=== PATIENT | female | born 1940 | race Caucasian/White ===

== ENCOUNTER 2018-12-29 08:04 | Inpatient (IN) | payer MEDICARE, MEDICAID ==
[2018-12-29] MEDS ORDERED: IPRATROPIUM/ALBUTEROL 0.5-2.5 MG/3 ML AMPUL NEB ONE (08:16)
--- NOTE | 2018-12-29 08:18 | ER Document Report ---
ED Respiratory Problem - General Chief Complaint: Respiratory Distress Stated Complaint: RESPIRATORY DISTRESS Time Seen by Provider: 12/29/18 08:09 Mode of Arrival: Medic Information source: Patient, Emergency Med Personnel Notes: Patient is a 78-year-old female who presents the emergency department via EMS. Family called EMS for respiratory distress. Family reported to EMS that patient has had a productive cough for the last 2-3 days, they state this is worse while she is lying down. Upon EMS arrival they found to be patient lying down with a O2 sat of 89%. EMS reports that her O2 saturations came up to 95% once they sat her up. Patient does have a history of dementia, COPD, hypertension, diabetes mellitus and A. fib. Patient has not been to this facility before so all of her medication information is not available. Unsure of patient has been having fevers although she reports chills. There is a strong smell of urine in the room. - Related Data Allergies/Adverse Reactions: No Known Allergies Allergy (Verified 12/29/18 08:42) Past Medical History - General Information source: Relative, Emergency Med Personnel - Social History Smoking Status: Current Some Day Smoker Frequency of alcohol use: None Drug Abuse: None Family History: Reviewed & Not Pertinent - Past Medical History Cardiac Medical History: Reports: Hx Hypertension Pulmonary Medical History: Reports: Hx COPD Endocrine Medical History: Reports: Hx Diabetes Mellitus Type 2 - NIDDM GI Medical History: Reports: Hx Crohn's Disease Review of Systems - Review of Systems Constitutional: denies: Chills, Fever EENT: denies: Nose congestion, Sinus discharge Cardiovascular: denies: Chest pain Respiratory: Cough, Short of breath, Sputum, Wheezing Gastrointestinal: denies: Abdominal pain, Diarrhea, Nausea, Vomiting Genitourinary: Other - Foul-smelling urine Female Genitourinary: No symptoms reported Musculoskeletal: No symptoms reported Skin: No symptoms reported Physical Exam - Vital signs Vitals: Temp Pulse Resp BP Pulse Ox 98.0 F 132 H 19 112/51 L 93 12/29/18 08:10 12/29/18 08:10 12/29/18 08:10 12/29/18 08:10 12/29/18 08:10 - Notes Notes: GENERAL: Alert, pleasantly confused, interacts well. No distress. HEAD: Normocephalic, atraumatic. EYES: Pupils equal, round, and reactive to light. Extraocular movements intact. ENT: Oral mucosa moist, tongue midline. Oropharynx unremarkable, uvula normal, airway patent. Septum unremarkable, TMs normal, ear canals are normal. NECK: Trachea midline. No lymphadenopathy. LUNGS: Mild expiratory wheezes, no rales, or rhonchi. No respiratory distress. Congested cough. HEART: Regular rate and rhythm. No murmur. Normal distal pulses and cap refill. ABDOMEN: Soft, non-tender. Non-distended. Bowel sounds present in all 4 quadrants. GENITOURINARY: Normal external genital exam, normal groin exam. EXTREMITIES: Moves all 4 extremities spontaneously. Mild edema noted to left lower extremity. No cyanosis. BACK: No cervical, thoracic, lumbar midline tenderness. No signs of trauma. NEUROLOGICAL: Alert, interactive. SKIN: Warm, dry, normal turgor. No rashes or lesions noted. Course - Re-evaluation Re-evalutation: On initial examination patient awake, alert with mild expiratory wheezes noted, DuoNeb and Solu-Medrol ordered. Patient is tachycardic, heart rate in the 130s on arrival, A. fib noted on the personnel monitor. EKG was obtained, rate 147, normal axis, ST depressions in multiple leads, no EKG on record for comparison. Patient is normotensive and afebrile. Patient's initial O2 sats are 88%, she does have a history of COPD. Patient denies any specific symptoms however she does have dementia. Dr. Denise made aware of patient status and he did come to the bedside to personally evaluate the patient. Chest x-ray is consistent with COPD exacerbation, no evidence of infiltrates or pneumothorax. CBC with leukocytosis of 22.9, otherwise unremarkable. Electrolytes are unremarkable, lactic acid 1.8, troponin negative. Influenza is negative. Urinalysis shows large leukocyte esterase, 2+ bacteria and WBC clumps. Patient currently receiving IV fluids, was given Rocephin IV, azithromycin IV. Cardizem bolus of 7 mg was ordered and drip was initiated. Patient continues to be normotensive and without hypoxia. Plan to admit patient for urosepsis, COPD exacerbation and uncontrolled atrial fibrillation. Family members are at bedside, updated on patient's status and plan of care, they are all in agreement. Called and spoke with hospitalist, JENNY Ramey who agrees to accept the patient for admission on to the [facility] floor. - Vital Signs Vital signs: Temp Pulse Resp BP Pulse Ox 98.0 F 132 H 19 112/51 L 92 12/29/18 08:10 12/29/18 08:10 12/29/18 08:10 12/29/18 08:10 12/29/18 08:16 - Laboratory Result Diagrams: 12/29/18 08:33 12/29/18 08:33 Laboratory results interpreted by me: 12/29/18 12/29/18 12/29/18 08:33 08:33 08:33 WBC 22.9 H Hgb 11.7 L RDW 16.7 H Seg Neuts % (Manual) 92 H Band Neutrophils % 2 L Lymphocytes % (Manual) 3 L Monocytes % (Manual) 2 L Abs Neuts (Manual) 21.5 H Chloride 109 H BUN 29 H Est GFR (Non-Af Amer) 57 L Glucose 170 H Calcium 7.9 L AST 11 L Total Protein 5.6 L Albumin 3.2 L Ur Leukocyte Esterase LARGE H Critical Care Note - Critical Care Note Total time excluding time spent on procedures (mins): 30 Comments: Multiple re-evaluations of patient with uncontrolled A. fib and urosepsis. Discharge - Discharge Clinical Impression: Sepsis due to urinary tract infection, COPD exacerbation Atrial fibrillation Qualifiers: Atrial fibrillation type: chronic Qualified Code(s): I48.2 - Chronic atrial fibrillation Condition: Good Disposition: ADMITTED INPATIENT Admitting Provider: Hospitalist Unit Admitted: [facility]
[2018-12-29] MEDS ORDERED: NORMAL SALINE 1000 ML 250 ML IV ONE (08:29)
[2018-12-29] MEDS ORDERED: METHYLPREDNISOLONE INJ 125 MG/2 ML SDV IV ONE (08:33)
[2018-12-29] MEDS ORDERED: CEFTRIAXONE 1 GM/D5W RTU 1 GM/50 ML RTUPB IV ONE (08:35)
[2018-12-29] MEDS ORDERED: AZITHROMYCIN INJ 500 MG VIAL IV ONE (08:35)
[2018-12-29] MEDS ORDERED: NORMAL SALINE 1000 ML 1,000 ML IV ONE (09:08)
[2018-12-29 09:14] LABS: APPEARANCE,URINE CLOUDY; BILIRUBIN,URINE NEGATIVE (NEGATIVE); COLOR,URINE YELLOW; GLUCOSE, URINE NEGATIVE (NEGATIVE); KETONES,URINE NEGATIVE (NEGATIVE); LEUKOCYTE ESTERASE,URINE LARGE (NEGATIVE); NITRITE,URINE NEGATIVE (NEGATIVE); PROTEIN,URINE NEGATIVE (NEGATIVE); URINE SPECIFIC GRAVITY 1.016; UROBILINOGEN,URINE NEGATIVE mg/dL (<2.0)
[2018-12-29 09:15] LABS: HEMATOCRIT 36.1 % (36.0-47.0); HEMOGLOBIN 11.7 g/dL (12.0-15.5); MEAN CORPUSCULAR HEMOGLOBIN 30.3 pg (27.0-33.4); MEAN CORPUSCULAR HGB CONC 32.3 g/dL (32.0-36.0); MEAN CORPUSCULAR VOLUME 94 fl (80-97); PLATELET COUNT 358 10^3/uL (150-450); RED BLOOD COUNT 3.84 10^6/uL (3.72-5.28); RED CELL DISTRIBUTION WIDTH 16.7 % (11.5-14.0); WHITE BLOOD COUNT 22.9 10^3/uL (4.0-10.5)
[2018-12-29 09:19] LABS: ALANINE AMINOTRANSFERASE 12 U/L (9-52); ALBUMIN 3.2 g/dL (3.5-5.0); ALKALINE PHOSPHATASE 55 U/L (38-126); ANION GAP 9 (5-19); ASPARTATE AMINO TRANSFERASE 11 U/L (14-36); BILIRUBIN,DIRECT 0.4 mg/dL (0.0-0.4); BILIRUBIN,TOTAL 0.7 mg/dL (0.2-1.3); BLOOD UREA NITROGEN 29 mg/dL (7-20); CALCIUM 7.9 mg/dL (8.4-10.2); CARBON DIOXIDE 22 mmol/L (22-30); CHLORIDE 109 mmol/L (98-107); GLUCOSE 170 mg/dL (75-110); POTASSIUM 4.5 mmol/L (3.6-5.0); SODIUM 139.9 mmol/L (137-145); TOTAL PROTEIN 5.6 g/dL (6.3-8.2)
--- NOTE | 2018-12-29 09:26 | RADIOLOGY REPORT (SQ) ---
EXAM DESCRIPTION: CHEST SINGLE VIEW COMPLETED DATE/TIME: 12/29/2018 9:07 am REASON FOR STUDY: shortness of breath COMPARISON: None. NUMBER OF VIEWS: One view. TECHNIQUE: Single frontal radiographic view of the chest acquired. LIMITATIONS: None. FINDINGS: LUNGS AND PLEURA: No opacities, masses or pneumothorax. No pleural effusion. Attenuated bl ood vessels and flattened deejay-diaphragms. MEDIASTINUM AND HILAR STRUCTURES: No masses. Contour normal. HEART AND VASCULAR STRUCTURES: Heart normal in size. Normal vasculature. BONES: No acute findings. HARDWARE: None in the chest. OTHER: No other significant finding. IMPRESSION: COPD. NO ACUTE RADIOGRAPHIC FINDING IN THE CHEST. TECHNICAL DOCUMENTATION: JOB ID: [id number] [employer] [place]- All Rights Reserved Reading location - IP/workstation name: [email or web address]
[2018-12-29 09:32] LABS: A TYPE INFLUENZA AG NEGATIVE (NEGATIVE); B INFLUENZA AG NEGATIVE (NEGATIVE)
[2018-12-29] MEDS ORDERED: DILTIAZEM HCL INJ 25 MG/5 ML VIAL IV ONE (09:41)
[2018-12-29] MEDS: DILTIAZEM HCL/D5W 125 MG/125 ML RTUINJ IV PRN ×2 (10:04→22:40)
[2018-12-29 10:05] LABS: ABSOLUTE LYMPHOCYTES# (MANUAL) 0.7 10^3/uL (0.5-4.7); ABSOLUTE MONOCYTES # (MANUAL) 0.5 10^3/uL (0.1-1.4); ABSOLUTE NEUTROPHILS# (MANUAL) 21.5 10^3/uL (1.7-8.2); ANISOCYTOSIS 1+; BAND NEUTROPHILS % (MANUAL) 2 % (3-5); BASOPHILS % (MANUAL) 0 % (0-2); BURR CELLS SLIGHT; EOSINOPHILS % (MANUAL) 1 % (0-6); LYMPHOCYTES % (MANUAL) 3 % (13-45); MONOCYTES % (MANUAL) 2 % (3-13); OVALOCYTES 1+; PLATELET COMMENT ADEQUATE; POIKILOCYTOSIS 1+; SEGMENTED NEUTROPHILS % (MAN) 92 % (42-78); TOTAL CELLS COUNTED 100
[2018-12-29] MEDS ORDERED: ACETAMINOPHEN 325 MG TABLET PO PRN (11:10)
[2018-12-29] MEDS ORDERED: DEXTROSE 40% GEL 15 GM TUBE PO PRN ×2 (11:19)
[2018-12-29] MEDS ORDERED: DEXTROSE 50%-WATER 25 GM/50 ML DISP.SYRIN IV PRN ×2 (11:19)
[2018-12-29] MEDS ORDERED: GLUCAGON,HUMAN RECOMB 1 MG INJ IM PRN (11:19)
[2018-12-29 11:39] LABS: INTERNATIONAL RATION (INR) 0.91; PROTHROMBIN TIME 12.7 SEC (11.4-15.4)
[2018-12-29 11:40] LABS: PARTIAL THROMBOPLASTIN TIME 25.3 SEC (23.5-35.8)
[2018-12-29] MEDS: INSULIN LISPRO 100 UNIT/ML 3 ML VIAL SUBCUT SCH ×3 (12:00→21:54)
--- NOTE | 2018-12-29 12:16 | RADIOLOGY REPORT (SQ) ---
EXAM DESCRIPTION: CT CHEST WITHOUT COMPLETED DATE/TIME: 12/29/2018 12:00 pm REASON FOR STUDY: suspect aspiration- cough COMPARISON: None. TECHNIQUE: CT scan performed of the chest without intravenous contrast. Images reviewed with lung, soft tissue and bone windows. Reconstructed coronal and sagittal MPR images reviewed. All images st ored on PACS. All CT scanners at this facility use dose modulation, iterative reconstruction, and/or weight based d osing when appropriate to reduce radiation dose to as low as reasonably achievable (ALARA). [facility]: Dose Right [facility]: CareDose [facility]: Dose Right [facility]: Teradose 4D [facility]: [place] RADIATION DOSE: CT Rad equipment meets quality standard of care and radiation dose reduction techniq ues were employed. CTDIvol: 11.9 mGy. DLP: 515 mGy-cm. mGy. LIMITATIONS: No technical limitations. FINDINGS: LUNGS AND PLEURA: Mild centrilobular emphysema. 8-10 scattered pulmonary nodules, the lar gest left lower lobe 1.7 cm abutting the posterior heart border. Bandlike density along the left denae or fissure most likely due to atelectasis or scarring. No effusions. HILAR AND MEDIASTINAL STRUCTURES: 1 cm pretracheal node. No bulky adenopathy. HEART AND VASCULAR STRUCTURES: No aneurysm. No pericardial effusion. UPPER ABDOMEN: 3 cm left adrenal measuring -3 HU, most likely benign adenoma. Thickening of the righ t adrenal. Cholelithiasis. Old granulomatous disease liver and spleen. Limited exam. THYROID AND OTHER SOFT TISSUES: No masses. No adenopathy. BONES: Nothing acute. HARDWARE: None in the chest. OTHER: No other significant findings. IMPRESSION: 1. Pulmonary nodules suspicious for malignancy. Consider follow-up PET-CT. 2. COPD. No infiltrate. TECHNICAL DOCUMENTATION: JOB ID: [id number] Quality ID # [id number]: Final reports with documentation of one or more dose reduction techniques (e.g., Au tomated exposure control, adjustment of the mA and/or kV according to patient size, use of iterative reconstruction technique) 2010 [employer]- All Rights Reserved Reading location - IP/workstation name: [email or web address]
[2018-12-29] MEDS: IPRATROPIUM/ALBUTEROL 0.5-2.5 MG/3 ML AMPUL NEB SCH ×2 (13:19→21:43)
--- NOTE | 2018-12-29 16:55 | PDOC H&P ---
History of Present Illness Admission Date/PCP: 12/29/18 10:10 The patient is establishing care with ARA GARCIA MD but does not have her first appointment until this coming Friday. Patient complains of: Shortness of breath and altered mental status. History of Present Illness: The patient is a 78-year-old female who presented to the emergency room via EMS. The family called EMS because the patient had developed respiratory distress at home. When EMS arrived they found the patient to be acutely dyspneic with an O2 sat saturation of 89%. She responded quite quickly her oxygen saturations recuperated when she was set up. Her past medical histo ry significant for dementia, COPD, hypertension, diabetes mellitus and atrial fibrillation. The patiently recently moved to this area from [place]. Her daughters report a history of Crohn's disease. Apparently her GI doctor in [place] was wanting to perform frequent colonoscopies and refused to see her when she would not comply. She has been off treatment for her Crohn's disease for over a year. She has developed diarrhea and has had several loose stools already today. Family reports that she has been more confused for the past several days. She has been weaker with difficulty ambulating. In the emergency room it was reported that she had atrial fibrillation with rapid ventricular response with rates in the 110s-120s. She was found to have evidence of a urinary tract infection. Her white blood cell count was elevated at 22.9. Kidney function and liver function was normal. Past Medical History Cardiac Medical History: Reports: Atrial Fibrillation, Hypertension Pulmonary Medical History: Reports: Chronic Obstructive Pulmonary Disease (COPD) EENT Medical History: Reports: None Neurological Medical History: Reports: None Endocrine Medical History: Reports: Diabetes Mellitus Type 2 - NIDDM Renal/ Medical History: Reports: None Malignancy Medical History: Reports: None GI Medical History: Reports: Crohn's Disease Musculoskeltal Medical History: Reports: None Skin Medical History: Reports: None Psychiatric Medical History: Reports: Depression Traumatic Medical History: Reports: None Hematology: Reports: None Infectious Medical History: Reports: None Past Surgical History Past Surgical History: Reports: Orthopedic Surgery Social History Information Source: Relative Lives with: Family Smoking Status: Current Some Day Smoker Frequency of Alcohol Use: None Drugs: None - Advance Directive Resuscitation Status: Full Code Family History Family History: Reviewed & Not Pertinent Parental Family History Reviewed: Yes Children Family History Reviewed: Yes Sibling(s) Family History Reviewed.: Yes Medication/Allergy Home Medications: Albuterol Sulfate [Ventolin 0.083% Neb 2.5 mg/3 ml Ampul] 1 vial NEB RTQIDP PRN 12/29/18 Chlorthalidone [Hygroton 25 mg Tablet] 25 mg PO DAILY 12/29/18 Diltiazem HCl [Dilt-Xr] 120 mg PO DAILY 12/29/18 Glimepiride [Amaryl] 2 mg PO DAILY 12/29/18 Glucosam/Chond/Hyalu/Cf Borate [Move Free Joint Health Tablet] 2 each PO QHS 12/29/18 Ipratropium/Albuterol Sulfate [Duoneb 3 ml Ampul] 3 ml NEB RTQIDP PRN 12/29/18 Lisinopril [Prinivil 40 mg Tablet] 40 mg PO DAILY 12/29/18 Metformin HCl [Glucophage 500 mg Tablet] 1,000 mg PO DAILY 12/29/18 Metformin HCl [Glucophage 500 mg Tablet] 500 mg PO QHS 12/29/18 Naproxen Sodium [Aleve] 440 mg PO DAILY 12/29/18 Naproxen Sodium [Aleve] 660 mg PO QHS 12/29/18 Thyroid,Pork [Nature-Throid] 16.25 mg PO DAILY 12/29/18 Tizanidine HCl [Zanaflex 4 Mg Tablet] 4 mg PO Q12 12/29/18 Allergies/Adverse Reactions: No Known Allergies Allergy (Verified 12/29/18 08:42) Review of Systems Constitutional: PRESENT: anorexia, weakness Eyes: ABSENT: visual disturbances Ears: ABSENT: hearing changes Cardiovascular: ABSENT: chest pain, dyspnea on exertion, edema, orthropnea, palpitations Respiratory: PRESENT: cough, dyspnea Gastrointestinal: PRESENT: diarrhea. ABSENT: abdominal pain, constipation, hematemesis, hematochezia, nausea, vomiting Genitourinary: ABSENT: dysuria, hematuria Musculoskeletal: ABSENT: joint swelling Integumentary: ABSENT: rash, wounds Neurological: ABSENT: abnormal gait, abnormal speech, confusion, dizziness, focal weakness, syncope Psychiatric: ABSENT: anxiety, depression, homidical ideation, suicidal ideation Endocrine: ABSENT: cold intolerance, heat intolerance, polydipsia, polyuria Hematologic/Lymphatic: ABSENT: easy bleeding, easy bruising Physical Exam Vital Signs: Temp Pulse Resp BP Pulse Ox 98.0 F 104 H 21 H 137/82 H 98 12/29/18 08:10 12/29/18 13:19 12/29/18 15:00 12/29/18 14:31 12/29/18 15:00 Intake & Output 12/28/18 12/29/18 12/30/18 06:59 06:59 06:59 Intake Total 1050 Balance 1050 Weight 62.9 kg General appearance: PRESENT: other - This is a 78-year-old female. She is quite confused. She is awake alert and oriented x1 Head exam: PRESENT: atraumatic, normocephalic Eye exam: PRESENT: conjunctiva pink, EOMI, PERRLA. ABSENT: scleral icterus Mouth exam: PRESENT: moist, tongue midline Neck exam: ABSENT: carotid bruit, JVD, lymphadenopathy, thyromegaly Respiratory exam: PRESENT: rhonchi - Coarse rhonchi noted throughout all lung vang, other Cardiovascular exam: PRESENT: RRR, tachycardia. ABSENT: diastolic murmur, rubs, systolic murmur Pulses: PRESENT: normal dorsalis pedis pul Vascular exam: PRESENT: normal capillary refill GI/Abdominal exam: PRESENT: normal bowel sounds, soft. ABSENT: distended, guarding, mass, organolmegaly, rebound, tenderness Rectal exam: PRESENT: deferred Extremities exam: PRESENT: full ROM. ABSENT: calf tenderness, clubbing, pedal edema Neurological exam: PRESENT: alert, awake, oriented to person, oriented to place, oriented to time, oriented to situation, CN II-XII grossly intact. ABSENT: motor sensory deficit Psychiatric exam: PRESENT: appropriate affect, normal mood. ABSENT: homicidal ideation, suicidal ideation Skin exam: PRESENT: dry, intact, warm. ABSENT: cyanosis, rash Results Laboratory Results: 12/29/18 08:33 12/29/18 08:33 12/29/18 12/29/18 12/29/18 08:33 08:33 08:33 WBC 22.9 H RBC 3.84 Hgb 11.7 L Hct 36.1 MCV 94 MCH 30.3 MCHC 32.3 RDW 16.7 H Plt Count 358 Seg Neutrophils % Not Reportable Lymphocytes % Not Reportable Monocytes % Not Reportable Eosinophils % Not Reportable Basophils % Not Reportable Absolute Neutrophils Not Reportable Absolute Lymphocytes Not Reportable Absolute Monocytes Not Reportable Absolute Eosinophils Not Reportable Absolute Basophils Not Reportable Sodium 139.9 Potassium 4.5 Chloride 109 H Carbon Dioxide 22 Anion Gap 9 BUN 29 H Creatinine 0.94 Est GFR ( Amer) > 60 Est GFR (Non-Af Amer) 57 L Glucose 170 H Lactic Acid Calcium 7.9 L Total Bilirubin 0.7 AST 11 L ALT 12 Alkaline Phosphatase 55 Total Protein 5.6 L Albumin 3.2 L Urine Color YELLOW Urine Appearance CLOUDY Urine pH 5.0 Ur Specific Admire 1.016 Urine Protein NEGATIVE Urine Glucose (UA) NEGATIVE Urine Ketones NEGATIVE Urine Blood NEGATIVE Urine Nitrite NEGATIVE Ur Leukocyte Esterase LARGE H Urine WBC (Auto) 45 Urine RBC (Auto) 1 12/29/18 09:16 WBC RBC Hgb Hct MCV MCH MCHC RDW Plt Count Seg Neutrophils % Lymphocytes % Monocytes % Eosinophils % Basophils % Absolute Neutrophils Absolute Lymphocytes Absolute Monocytes Absolute Eosinophils Absolute Basophils Sodium Potassium Chloride Carbon Dioxide Anion Gap BUN Creatinine Est GFR ( Amer) Est GFR (Non-Af Amer) Glucose Lactic Acid 1.8 Calcium Total Bilirubin AST ALT Alkaline Phosphatase Total Protein Albumin Urine Color Urine Appearance Urine pH Ur Specific Admire Urine Protein Urine Glucose (UA) Urine Ketones Urine Blood Urine Nitrite Ur Leukocyte Esterase Urine WBC (Auto) Urine RBC (Auto) 12/29/18 08:33 Troponin I < 0.012 Impressions: Chest CT 12/29/18 00:00 IMPRESSION: 1. Pulmonary nodules suspicious for malignancy. Consider follow-up PET-CT. 2. COPD. No infiltrate. Chest X-Ray 12/29/18 08:17 IMPRESSION: COPD. NO ACUTE RADIOGRAPHIC FINDING IN THE CHEST. Assessment & Plan - Diagnosis (1) Acute respiratory failure Is this a current diagnosis for this admission?: Yes Plan: The patient was acutely dyspneic with low oxygen saturations when EMS arrived. She is improved somewhat but still is quite short of breath with cough and bronchospasm. Continue oxygen support as needed. Continue aggressive breathing treatments and therapy as outlined below first. Her respiratory failure is due to a COPD exacerbation (2) Acute encephalopathy Is this a current diagnosis for this admission?: Yes Plan: Secondary to urinary tract infection and simply aggravated by hypoxia at the time of admission. She still is acutely encephalopathic and nowhere close to her cognitive baseline per the family. (3) COPD exacerbation Is this a current diagnosis for this admission?: Yes Plan: Continue IV Solu-Medrol and aggressive breathing treatments. No evidence of pneumonia on CT imaging. (4) Urinary tract infection Is this a current diagnosis for this admission?: Yes Plan: Urine culture and blood cultures are pending. Continue IV Rocephin. This is the first full day of treatment. (5) Pulmonary nodules Is this a current diagnosis for this admission?: Yes Plan: She had a CT scan of the chest and was found to have multiple pulmonary nodules worrisome for underlying malignancy. I am going to consult pulmonology for further evaluation. Of note the family has not been notified of this as I am just finding this out later in the day. (6) Crohns disease Is this a current diagnosis for this admission?: Yes Plan: Her Crohn's disease has been untreated for quite some time. She is having diarrhea and possibly could be having Crohn's flare. She is on IV Solu-Medrol for her respiratory issues which should help that. I will consult Dr. Matias from the GI service for further recommendations. (7) Diabetes mellitus Is this a current diagnosis for this admission?: Yes Plan: Continue home regimen plus sliding scale. We need to watch her blood sugars quite closely as she will be receiving IV steroids. (8) Hypertension Is this a current diagnosis for this admission?: Yes Plan: Continue home regimen (9) Atrial fibrillation Is this a current diagnosis for this admission?: Yes Plan: It was reported earlier that the patient had atrial fibrillation with rapid ventricular response. She was transiently placed on a Cardizem drip. Cardiology was consulted and he does not believe that this is atrial fibrillation at this point. She does have a history of this. We will await further recommendations from cardiology. (10) Sinus tachycardia Is this a current diagnosis for this admission?: Yes Plan: Likely due to underlying infection. (11) Dementia Is this a current diagnosis for this admission?: Yes Plan: This is not been formally introduced but the family reports rather significant memory issues at times. (12) Ambulatory dysfunction Is this a current diagnosis for this admission?: Yes Plan: We will get physical therapy to evaluate the patient. (13) Full code status Is this a current diagnosis for this admission?: Yes - Time Time Spent: 50 to 70 Minutes - Inpatient Certification Medical Necessity: Need For IV Fluids, Need For Continuous Telemetry Monitoring, Need for IV Antibiotics, Other - Is a patient will be fully admitted to the hospital. She has multiple issues to include urinary tract infection, untreated Crohn's disease and atrial fibrillation. She has a COPD exacerbation with new pulmonary nodules noted on CT imaging. She needs pulmonology and cardiology evaluation. Timing of disposition will be determined by her clinical course but I suspect her hospitalization will span greater than 2 midnights.
[2018-12-29] MEDS: METHYLPREDNISOLONE INJ 40 MG/1 ML SDV IV SCH ×2 (17:12→23:12)
--- NOTE | 2018-12-29 17:48 | PDOC CONSULTATION ---
Consultation Consult Date: 12/29/18 Attending physician:: JADON PACHECO Consult reason:: Diarrhea ? due to Crohn's disease History of Present Illness Admission Date/PCP: 12/29/18 10:10 ARA GARCIA MD History of Present Illness: JOSE DANIEL LONG is a 78 year old female I have asked to see this patient by the Hospitalist service was admitted for an episode of respiratory distress has a history of A fib in the past as well on admission was noted to have pulmonary nodules and Pulmonary service has a vague history of Crohn's disease apparently followed out of state and was tod that she needed colonoscopies every 3 months she refused and has not been treated patient is currently receiving steroids for her COPD patient does have other issues going on as well and checking a sed rate or a CRP may not be useful as well will need to have family sign to get records of previous diagnosis and work up if any regarding her Crohn's it is unclear if she has had biological therapy in the past however her K is 4.5 implying her diarrhea may not be severe enough to be causing a hypokalemia patient has slightly elevated BUN that could suggest some degree of dehydration she has other problems that need to be addressed during this hospital stay she may benefit from a CT scan with oral contrast vs a SBFT to see if she has any areas of inflammation in her intestinal tract Past Medical History Cardiac Medical History: Reports: Atrial Fibrillation, Hypertension Pulmonary Medical History: Reports: Chronic Obstructive Pulmonary Disease (COPD) EENT Medical History: Reports: None Neurological Medical History: Reports: None Endocrine Medical History: Reports: Diabetes Mellitus Type 2 - NIDDM Renal/ Medical History: Reports: None Malignancy Medical History: Reports: None GI Medical History: Reports: Crohn's Disease Musculoskeltal Medical History: Reports: None Skin Medical History: Reports: None Psychiatric Medical History: Reports: Depression Traumatic Medical History: Reports: None Hematology: Reports: None Infectious Medical History: Reports: None Past Surgical History Past Surgical History: Reports: Orthopedic Surgery Social History Lives with: Family Smoking Status: Current Some Day Smoker Frequency of Alcohol Use: None Drugs: None - Advance Directive Resuscitation Status: Full Code Family History Family History: Reviewed & Not Pertinent Parental Family History Reviewed: Yes Children Family History Reviewed: Unknown Sibling(s) Family History Reviewed.: Unknown Medication/Allergy Home Medications: Albuterol Sulfate [Ventolin 0.083% Neb 2.5 mg/3 ml Ampul] 1 vial NEB RTQIDP PRN 12/29/18 Chlorthalidone [Hygroton 25 mg Tablet] 25 mg PO DAILY 12/29/18 Diltiazem HCl [Dilt-Xr] 120 mg PO DAILY 12/29/18 Glimepiride [Amaryl] 2 mg PO DAILY 12/29/18 Glucosam/Chond/Hyalu/Cf Borate [Move Free Joint Health Tablet] 2 each PO QHS 12/29/18 Ipratropium/Albuterol Sulfate [Duoneb 3 ml Ampul] 3 ml NEB RTQIDP PRN 12/29/18 Lisinopril [Prinivil 40 mg Tablet] 40 mg PO DAILY 12/29/18 Metformin HCl [Glucophage 500 mg Tablet] 1,000 mg PO DAILY 12/29/18 Metformin HCl [Glucophage 500 mg Tablet] 500 mg PO QHS 12/29/18 Naproxen Sodium [Aleve] 440 mg PO DAILY 12/29/18 Naproxen Sodium [Aleve] 660 mg PO QHS 12/29/18 Thyroid,Pork [Nature-Throid] 16.25 mg PO DAILY 12/29/18 Tizanidine HCl [Zanaflex 4 Mg Tablet] 4 mg PO Q12 12/29/18 Allergies/Adverse Reactions: No Known Allergies Allergy (Verified 12/29/18 08:42) Review of Systems Constitutional: ABSENT: fever(s), headache(s), night sweats Eyes: ABSENT: visual disturbances Ears: ABSENT: hearing changes Nose, Mouth, and Throat: ABSENT: mouth pain Cardiovascular: ABSENT: edema, orthropnea Respiratory: ABSENT: dyspnea, hemoptysis Gastrointestinal: ABSENT: hematemesis, hematochezia, nausea, vomiting Genitourinary: ABSENT: dysuria, hematuria Musculoskeletal: ABSENT: joint swelling Neurological: ABSENT: syncope, tingling, tremor(s), vertigo Endocrine: ABSENT: polydipsia, polyphagia, polyuria Hematologic/Lymphatic: ABSENT: easy bruising Physical Exam Vital Signs: Temp Pulse Resp BP Pulse Ox 98.0 F 104 H 19 133/61 H 100 12/29/18 08:10 12/29/18 13:19 12/29/18 16:31 12/29/18 16:31 12/29/18 16:31 Intake & Output 0212/29/18 12/30/18 06:59 06:59 06:59 Intake Total 1059 Balance 1059 Weight 62.9 kg General appearance: PRESENT: no acute distress Head exam: PRESENT: atraumatic, normocephalic Eye exam: PRESENT: EOMI, PERRLA. ABSENT: nystagmus, periorbital swelling, scleral icterus Mouth exam: PRESENT: moist, neck supple Throat exam: ABSENT: tonsillar exudate, tonsillogmegaly Respiratory exam: PRESENT: symmetrical, tachypnea, wheezes Cardiovascular exam: PRESENT: irregular rhythm GI/Abdominal exam: PRESENT: soft. ABSENT: rebound, rigid, tenderness Extremities exam: ABSENT: joint swelling Neurological exam: PRESENT: oriented to situation, CN II-XII grossly intact Focused psych exam: ABSENT: restlessness Skin exam: PRESENT: normal color. ABSENT: mottled, pallor, urticaria, vesicles Results Laboratory Results: 12/29/18 08:33 12/29/18 08:33 12/29/18 12/29/18 12/29/18 08:33 08:33 08:33 WBC 22.9 H RBC 3.84 Hgb 11.7 L Hct 36.1 MCV 94 MCH 30.3 MCHC 32.3 RDW 16.7 H Plt Count 358 Seg Neutrophils % Not Reportable Lymphocytes % Not Reportable Monocytes % Not Reportable Eosinophils % Not Reportable Basophils % Not Reportable Absolute Neutrophils Not Reportable Absolute Lymphocytes Not Reportable Absolute Monocytes Not Reportable Absolute Eosinophils Not Reportable Absolute Basophils Not Reportable Sodium 139.9 Potassium 4.5 Chloride 109 H Carbon Dioxide 22 Anion Gap 9 BUN 29 H Creatinine 0.94 Est GFR ( Amer) > 60 Est GFR (Non-Af Amer) 57 L Glucose 170 H Lactic Acid Calcium 7.9 L Total Bilirubin 0.7 AST 11 L ALT 12 Alkaline Phosphatase 55 Total Protein 5.6 L Albumin 3.2 L Urine Color YELLOW Urine Appearance CLOUDY Urine pH 5.0 Ur Specific [place] 1.016 Urine Protein NEGATIVE Urine Glucose (UA) NEGATIVE Urine Ketones NEGATIVE Urine Blood NEGATIVE Urine Nitrite NEGATIVE Ur Leukocyte Esterase LARGE H Urine WBC (Auto) 45 Urine RBC (Auto) 1 12/29/18 09:16 WBC RBC Hgb Hct MCV MCH MCHC RDW Plt Count Seg Neutrophils % Lymphocytes % Monocytes % Eosinophils % Basophils % Absolute Neutrophils Absolute Lymphocytes Absolute Monocytes Absolute Eosinophils Absolute Basophils Sodium Potassium Chloride Carbon Dioxide Anion Gap BUN Creatinine Est GFR ( Amer) Est GFR (Non-Af Amer) Glucose Lactic Acid 1.8 Calcium Total Bilirubin AST ALT Alkaline Phosphatase Total Protein Albumin Urine Color Urine Appearance Urine pH Ur Specific [place] Urine Protein Urine Glucose (UA) Urine Ketones Urine Blood Urine Nitrite Ur Leukocyte Esterase Urine WBC (Auto) Urine RBC (Auto) 12/29/18 08:33 Troponin I < 0.012 Impressions: Chest CT 12/29/18 00:00 IMPRESSION: 1. Pulmonary nodules suspicious for malignancy. Consider follow-up PET-CT. 2. COPD. No infiltrate. Chest X-Ray 12/29/18 08:17 IMPRESSION: COPD. NO ACUTE RADIOGRAPHIC FINDING IN THE CHEST. Assessment & Plan - Diagnosis (1) Crohns disease Is this a current diagnosis for this admission?: Yes Plan: 1. Get records from previous GI prior to proceeding 2. Continue steroids for now for her COPD which likely will help her Crohn's if this is a flare 3. usually checking a sed rate and CRP are fairly good predictors of an acute flare 4. anti sachromycetes antibody will be useful as well 5. Would avoid instrumentation unless both pulmonary and cardiac status are stable 6. CT scan with oral contrast vs SBFT can be done while an inpatient 7. Will follow up with you, - Time Time Spent: 50 to 70 Minutes
--- NOTE | 2018-12-29 17:56 | EKG REPORT ---
SEVERITY:- ABNORMAL ECG - MULTIFOCAL ATRIAL TACHYCARDIA : Confirmed by: Kisha Parra MD 29-Dec-2018 17:55:45
[2018-12-29] MEDS ORDERED: INSULIN LISPRO 100 UNIT/ML 3 ML VIAL SUBCUT ONE (18:00)
--- NOTE | 2018-12-29 18:00 | EKG REPORT ---
SEVERITY:- ABNORMAL ECG - PEDIATRIC ECG INTERPRETATION ST DEPRESSION, PROBABLY RATE RELATED MULTIFOCAL ATRIAL TACHYCARDIA : Confirmed by: Kisha Parra MD 29-Dec-2018 18:00:01
[2018-12-29] MEDS: TEMAZEPAM 7.5 MG CAPSULE PO PRN (21:50)
--- NOTE | 2018-12-29 22:22 | PDOC CONSULTATION ---
Consultation-Blank Consultation: CARDIOLOGY CONSULTATION by Dr. Kisha Parra on 12/29/2018. REASON FOR CONSULTATION: Atrial fibrillation with rapid ventricular response. History PRESENT ILLNESS: PAST MEDICAL HISTORY: PAST SURGICAL HISTORY: She had right shoulder surgery. 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 SOCIAL HISTORY: The patient continues to smoke. There is no EtOH abuse. ALLERGIES: The patient has no known allergies. DISPOSITION: The patient is a full code. Her daughter is her surrogate healthcare decision maker FAMILY HISTORY: REVIEW OF SYSTEMS: HEAD: Denies headache or head injury. Denies dizziness. CONSTITUTIONAL: No history of fever chills or rigors. Denies any generalized fatigue or weakness. She claims to be very active. EYES: No history of EMLA. Diplopia, and no for amaurosis fugax. NOSE: No history of deviated nasal septum, no hayfever and no nosebleeds. THROAT: No history of odynophagia dysphagia no history of recurrent sore throats. MOUTH: No altered taste sensation no ulcers in the mouth no bleeding from the gums. SKIN: No history of pruritus no history of allergies discoloration of the skin, no skin cancer or eczema. NECK: No history of neck pain,, no swelling in the neck. No goiter. LUNGS: No history of asthma COPD. No recent symptoms of upper or lower respiratory tract infection. No history of pulmonary embolism or sleep apnea. No cough or sputum production, no wheezing. No acute hemoptysis. Although no pleuritic chest pain the patient did have left sharp left-sided pain which increases on deep breathing. HEART: Denies history of hypertension, no prior history of DC or congestive heart failure or cardiac arrhythmia no history of leg edema no history of PND orthopnea. No history of syncope GI: No history of GERD symptoms. No history of jaundice. No history of fatty food intolerance. Note that the patient's liver function tests are slightly abnormal. There is no history of GI bleed. No abdominal pain. No cirrhosis of the liver. No altered bowel movements. No abdominal pain. Endocrine: No history of diabetes mellitus or thyroid disease. No history of polydipsia polyuria no history of heat or cold intolerance. No history of hirsutism. No history of excessive sweating. RENAL: No history of chronic kidney disease no symptoms of UTI no history of hematuria pyuria or dysuria. Musculoskeletal: Denies arthritis or collagen vascular disease. Metabolic: No history of obesity. No history of gout. Although she has no prior history of hyperlipidemia the patient's lipids are elevated this admission. PRODUCT SUPPORT CONSULTANT: No history of TIA or CVA no history of headaches migraines or seizures, and no gait imbalance. PSYCHIATRIC: No history of anxiety depression. No suicidal ideation no homicidal ideation. VASCULAR: No history of calf or buttock claudication, and no history of DVT. Hematological: No history of bleeding diathesis or clotting disorders. No history of anemia. PHYSICAL EXAMINATION: The patient is well-built. She is in mild respiratory dis tress. She is well-groomed. Selected Entries 12/29/18 19:54 Temperature 97.6 F Temperature Oral Source Pulse Rate 96 Respiratory 19 Rate Blood Pressure 132/79 H Blood Pressure 96 Mean BP Location Left Arm BP Position Sitting O2 Sat by Pulse 96 Oximetry Oxygen Flow 2.00 Rate Oxygen Delivery Nasal Cannula Method HEAD: Head is atraumatic and normocephalic. EYES: Pupils are equal round regular reactive to light accommodation. Extraocular movements are normal, there is no conjunctival pallor, and no scleral icterus. EARS: Tympanic membranes are intact external auditory canals are clear. NOSE: There is no inflammation of the nasal mucous membrane there is no deviated nasal septum. MOUTH: Mucous membranes of mouth and tongue are moist, there is no ulcers in the mouth or tongue, and no bleeding from the gums. THROAT: There is no redness of the oropharynx, no exudate seen. SKIN: There is no petechia or ecchymosis. There is no rashes or lesions. NECK: Supple. There is no JVD. Carotids are equal there is no bruit. There is no lymphadenopathy. There is no goiter. Trachea central LUNGS: There is diminished air entry and prolonged expiration. There is scattered rhonchi. There is no wheezing or rales. . On percussion there is hyperresonance although there is no chest wall tenderness HEART: S1 and S2 are heard. S1 is of normal intensity, there is no S3 or S4 gallops. There is a systolic murmur the left sternal border and the apex. There is no rub. ABDOMEN: Normoactive bowel sounds, soft, nontender, no masses, no rebound, no gu arding. There is no hepatosplenomegaly. EXTREMITIES: Femorals are slightly diminished. There is no femoral bruits. Leg pulses are diminished. There is no pedal edema. There is no DVT or cellulitis. There is no cyanosis or clubbing. There is no calf tenderness. NEUROLOGICAL the patient is awake alert oriented 3 with no focal deficits. PSYCHIATRIC: The patient judgment and insight are intact his affect is normal. Medications During Hospitalization Albuterol/Ipratropium (Duoneb 3 Ml Ampul) 3 ml NEB [id number] [facility] Stop: 01/28/19 13:59 Last Admin: 12/29/18 21:43 Dose: Not Given Documented by: SIOBHAN Non-Admin Reason: Not In Room Admin: 12/29/18 13:19 Dose: 3 ml Documented by: KOSTAS Diltiazem HCl (Cardizem Rtu Inj 125 Mg-D5w 125 Ml Premix) 125 mg in 125 mls @ 0 mls/hr IV CONTINUOUS PRN; Protocol PRN Reason: THIS MED IS NOT "PRN" Stop: 01/28/19 09:41 Last Admin: 12/29/18 22:40 Dose: 10 mls/hr, 10 mls/hr Documented by: Titration: 12/29/18 22:40 Dose: 10 mls/hr, 10 mls/hr Documented by: Titration: 12/29/18 20:00 Dose: 10 mls/hr, 10 mls/hr Documented by: Titration: 12/29/18 13:30 Dose: 5 mls/hr, 5 mls/hr Documented by: Admin: 12/29/18 10:04 Dose: 2.5 mls/hr, 2.5 mls/hr Documented by: GARY Sodium Chloride (Nacl 0.9% 1000 Ml Iv Soln) 1,000 mls @ 75 mls/hr IV CONTINUOUS PRN PRN Reason: THIS MED IS NOT "PRN" Stop: 01/28/19 16:53 Last Admin: 12/29/18 22:46 Dose: 75 mls/hr Documented by: JEFFRY Insulin Human Lispro (Humalog Insulin 100 Unit/1 Ml 3 Ml Vial) 0 - 12 unit SUBCUT [facility]; Protocol Stop: 01/28/19 11:59 Last Admin: 12/29/18 21:54 Dose: 6 unit Documented by: JEFFRY Cosigned by: JREID Admin: 12/29/18 17:29 Dose: Not Given Documented by: GARY Non-Admin Reason: Hold Dose Per MD Order Admin: 12/29/18 12:00 Dose: Not Given Documented by: GARY Non-Admin Reason: Patient Refused Methylprednisolone Sodium Succinate (Solu-Medrol Inj/Pf 40 Mg/1 Ml Sdv) 40 mg IV Q8@0000,0800,1600 MARIA ISABEL Stop: 01/28/19 15:59 Last Admin: 12/29/18 23:12 Dose: 40 mg Documented by: Admin: 12/29/18 17:12 Dose: 40 mg Documented by: GARY Temazepam (Restoril 7.5 Mg Capsule) 7.5 mg PO HSP PRN PRN Reason: SLEEP OR INSOMNIA Stop: 01/05/19 11:09 Last Admin: 12/29/18 21:50 Dose: 7.5 mg Documented by: JEFFRY Discontinued Medications Albuterol/Ipratropium (Duoneb 3 Ml Ampul) 3 ml NEB NOW ONE Stop: 12/29/18 08:17 Last Admin: 12/29/18 08:46 Dose: 3 ml Documented by: GARY Azithromycin (Zithromax Inj 500 Mg Vial) 500 mg IV IVBAG (ED) ONE Stop: 12/29/18 08:36 Last Admin: 12/29/18 08:55 Dose: 500 mg Documented by: GARY Diltiazem HCl (Cardizem Inj 25 Mg/5 Ml Vial) 7 mg IV NOW ONE Stop: 12/29/18 09:42 Last Admin: 12/29/18 09:56 Dose: 7 mg Documented by: GARY Sodium Chloride (Nacl 0.9% 1000 Ml Iv Soln) 250 mls @ 0 mls/hr IV BOLUS ONE Stop: 12/29/18 08:30 Last Admin: 12/29/18 09:35 Dose: Not Given Documented by: GARY Non-Admin Reason: DC per MD Order Ceftriaxone Sodium/Dextrose (Rocephin Rtu 1 Gm/D5w 50 Ml Premix) 1 gm in 50 mls @ 100 mls/hr IV NOW ONE Stop: 12/29/18 09:04 Last Infusion: 12/29/18 10:04 Dose: 0 mls/hr, 0 mls/hr Documented by: Admin: 12/29/18 09:34 Dose: 100 mls/hr, 100 mls/hr Documented by: GARY Sodium Chloride (Nacl 0.9% 1000 Ml Iv Soln) 1,000 mls @ 500 mls/hr IV BOLUS ONE Stop: 12/29/18 11:07 Last Infusion: 12/29/18 11:20 Dose: 0 mls/hr Documented by: Admin: 12/29/18 09:20 Dose: 500 mls/hr Documented by: GARY Insulin Human Lispro (Humalog Insulin 100 Unit/1 Ml 3 Ml Vial) 15 unit SUBCUT NOW ONE Stop: 12/29/18 18:01 Last Admin: 12/29/18 17:29 Dose: 15 unit Documented by: GARY Cosigned by: DOXENDINE Methylprednisolone Sodium Succinate (Solu-Medrol Inj/Pf 125 Mg/2 Ml Sdv) 125 mg IV NOW ONE Stop: 12/29/18 08:34 Last Admin: 12/29/18 08:46 Dose: 125 mg Documented by: GARY Current Home Medications Albuterol Sulfate [Ventolin 0.083% Neb 2.5 mg/3 ml Ampul] 1 vial NEB RTQIDP PRN 12/29/18 [History] Chlorthalidone [Hygroton 25 mg Tablet] 25 mg PO DAILY 12/29/18 [History] Diltiazem HCl [Dilt-Xr] 120 mg PO DAILY 12/29/18 [History] Glimepiride [Amaryl] 2 mg PO DAILY 12/29/18 [History] Glucosam/Chond/Hyalu/Cf Borate [Move Free Joint Health Tablet] 2 each PO QHS 12/29/18 [History] Ipratropium/Albuterol Sulfate [Duoneb 3 ml Ampul] 3 ml NEB RTQIDP PRN 12/29/18 [History] Lisinopril [Prinivil 40 mg Tablet] 40 mg PO DAILY 12/29/18 [History] Metformin HCl [Glucophage 500 mg Tablet] 1,000 mg PO DAILY 12/29/18 [History] Metformin HCl [Glucophage 500 mg Tablet] 500 mg PO QHS 12/29/18 [History] Naproxen Sodium [Aleve] 440 mg PO DAILY 12/29/18 [History] Naproxen Sodium [Aleve] 660 mg PO QHS 12/29/18 [History] Thyroid,Pork [Nature-Throid] 16.25 mg PO DAILY 12/29/18 [History] Tizanidine HCl [Zanaflex 4 Mg Tablet] 4 mg PO Q12 12/29/18 [History] Labs- All tests 24 hr 12/29/18 12/29/18 12/29/18 08:33 08:33 08:33 WBC 22.9 H RBC 3.84 Hgb 11.7 L Hct 36.1 MCV 94 MCH 30.3 MCHC 32.3 RDW 16.7 H Plt Count 358 Total Counted 100 Seg Neutrophils % Not Reportable Seg Neuts % (Manual) 92 H Band Neutrophils % 2 L Lymphocytes % Not Reportable Lymphocytes % (Manual) 3 L Monocytes % Not Reportable Monocytes % (Manual) 2 L Eosinophils % Not Reportable Eosinophils % (Manual) 1 Basophils % Not Reportable Basophils % (Manual) 0 Absolute Neutrophils Not Reportable Abs Neuts (Manual) 21.5 H Absolute Lymphocytes Not Reportable Abs Lymphs (Manual) 0.7 Absolute Monocytes Not Reportable Abs Monocytes (Manual) 0.5 Absolute Eosinophils Not Reportable Absolute Eos (Manual) 0.2 Absolute Basophils Not Reportable Abs Basophils (Manual) 0.0 Platelet Comment ADEQUATE Poikilocytosis 1+ Anisocytosis 1+ Ovalocytes 1+ Raudel Cells SLIGHT PT INR APTT Sodium 139.9 Potassium 4.5 Chloride 109 H Carbon Dioxide 22 Anion Gap 9 BUN 29 H Creatinine 0.94 Est GFR ( Amer) > 60 Est GFR (Non-Af Amer) 57 L Glucose 170 H POC Glucose Lactic Acid Calcium 7.9 L Total Bilirubin 0.7 Direct Bilirubin 0.4 Neonat Total Bilirubin Not Reportable Neonat Direct Bilirubin Not Reportable Neonat Indirect Bili Not Reportable AST 11 L ALT 12 Alkaline Phosphatase 55 Troponin I < 0.012 Total Protein 5.6 L Albumin 3.2 L Urine Color Urine Appearance Urine pH Ur Specific [place] Urine Protein Urine Glucose (UA) Urine Ketones Urine Blood Urine Nitrite Urine Bilirubin Urine Urobilinogen Ur Leukocyte Esterase Urine WBC (Auto) Urine RBC (Auto) U Hyaline Cast (Auto) Urine Bacteria (Auto) Urine WBC Clumps Squamous Epi Cells Auto Urine Mucus (Auto) Urine Ascorbic Acid Influenza A (Rapid) Influenza B (Rapid) 12/29/18 12/29/18 12/29/18 08:33 08:33 08:49 WBC RBC Hgb Hct MCV MCH MCHC RDW Plt Count Total Counted Seg Neutrophils % Seg Neuts % (Manual) Band Neutrophils % Lymphocytes % Lymphocytes % (Manual) Monocytes % Monocytes % (Manual) Eosinophils % Eosinophils % (Manual) Basophils % Basophils % (Manual) Absolute Neutrophils Abs Neuts (Manual) Absolute Lymphocytes Abs Lymphs (Manual) Absolute Monocytes Abs Monocytes (Manual) Absolute Eosinophils Absolute Eos (Manual) Absolute Basophils Abs Basophils (Manual) Platelet Comment Poikilocytosis Anisocytosis Ovalocytes [place] Cells PT 12.7 INR 0.91 APTT 25.3 Sodium Potassium Chloride Carbon Dioxide Anion Gap BUN Creatinine Est GFR ( Amer) Est GFR (Non-Af Amer) Glucose POC Glucose Lactic Acid Calcium Total Bilirubin Direct Bilirubin Neonat Total Bilirubin Neonat Direct Bilirubin Neonat Indirect Bili AST ALT Alkaline Phosphatase Troponin I Total Protein Albumin Urine Color YELLOW Urine Appearance CLOUDY Urine pH 5.0 Ur Specific [place] 1.016 Urine Protein NEGATIVE Urine Glucose (UA) NEGATIVE Urine Ketones NEGATIVE Urine Blood NEGATIVE Urine Nitrite NEGATIVE Urine Bilirubin NEGATIVE Urine Urobilinogen NEGATIVE Ur Leukocyte Esterase LARGE H Urine WBC (Auto) 45 Urine RBC (Auto) 1 U Hyaline Cast (Auto) 4 Urine Bacteria (Auto) 3+ Urine WBC Clumps MANY Squamous Epi Cells Auto <1 Urine Mucus (Auto) RARE Urine Ascorbic Acid NEGATIVE Influenza A (Rapid) NEGATIVE Influenza B (Rapid) NEGATIVE 12/29/18 12/29/18 12/29/18 09:16 11:30 21:49 WBC RBC Hgb Hct MCV MCH MCHC RDW Plt Count Total Counted Seg Neutrophils % Seg Neuts % (Manual) Band Neutrophils % Lymphocytes % Lymphocytes % (Manual) Monocytes % Monocytes % (Manual) Eosinophils % Eosinophils % (Manual) Basophils % Basophils % (Manual) Absolute Neutrophils Abs Neuts (Manual) Absolute Lymphocytes Abs Lymphs (Manual) Absolute Monocytes Abs Monocytes (Manual) Absolute Eosinophils Absolute Eos (Manual) Absolute Basophils Abs Basophils (Manual) Platelet Comment Poikilocytosis Anisocytosis Ovalocytes Raudel Cells PT INR APTT Sodium Potassium Chloride Carbon Dioxide Anion Gap BUN Creatinine Est GFR ( Amer) Est GFR (Non-Af Amer) Glucose POC Glucose 185 H 273 H Lactic Acid 1.8 Calcium Total Bilirubin Direct Bilirubin Neonat Total Bilirubin Neonat Direct Bilirubin Neonat Indirect Bili AST ALT Alkaline Phosphatase Troponin I Total Protein Albumin Urine Color Urine Appearance Urine pH Ur Specific [place] Urine Protein Urine Glucose (UA) Urine Ketones Urine Blood Urine Nitrite Urine Bilirubin Urine Urobilinogen Ur Leukocyte Esterase Urine WBC (Auto) Urine RBC (Auto) U Hyaline Cast (Auto) Urine Bacteria (Auto) Urine WBC Clumps Squamous Epi Cells Auto Urine Mucus (Auto) Urine Ascorbic Acid Influenza A (Rapid) Influenza B (Rapid) Chest CT 12/29/18 00:00 IMPRESSION: 1. Pulmonary nodules suspicious for malignancy. Consider follow-up PET-CT. 2. COPD. No infiltrate. Chest X-Ray 12/29/18 08:17 IMPRESSION: COPD. NO ACUTE RADIOGRAPHIC FINDING IN THE CHEST. EKG: Initial EKG shows multifocal atrial tachycardia, and not atrial fibrillation. Subsequent EKG shows chaotic atrial mechanism with 3 different P wave morphologies consistent with chaotic atrial mechanism/wandering atrial pacemaker. Again no evidence of atrial fibrillation. IMPRESSION/RECOMMENDATION: 1. There is no evidence of atrial fibrillation. The patient has multifocal at rial tachycardia, which is a common finding in people with COPD, especially with acute exacerbation. Would recommend increasing the patient's Cardizem drip to 10 mg/h. Would continue Lovenox for DVT prevention doses. Patient does not need full anticoagulation. Later we will check an echo for presence or absence of pulmonary hypertension, and if present the severity of pulmonary hypertension. 2. COPD with acute exacerbation: Continue respiratory treatments, and oxygen. 3. Diabetes mellitus type 2 [id number]. Continue antidiabetic medication, and monitor blood sugars. 4. Hypertension: Blood pressure seems to be controlled. 5. Tobacco abuse disorder: Tobacco cessation counseling given 3 minutes spent. Ill effects of tobacco have been excellent to the patient. 6. History of Crohn's disease: G has been consulted 7. Hypothyroidism: Continue replacement thyroid supplement. 8. Depression: Continue antidepressants. Occasions reviewed. Patient seen at 6:30 PM on 12/29/2018. Earlier briefly saw the patient in the emergency room. The patient's daughter was there. Medical decision making is of moderate complexity. 60 minutes spent on this patient with more than 50% of time spent in direct patient care.
[2018-12-29] MEDS: NORMAL SALINE 1000 ML 1,000 ML IV PRN (22:46)
[2018-12-30] MEDS: LANSOPRAZOLE 15 MG TAB.RAP.DR PO SCH (05:21)
--- NOTE | 2018-12-30 07:37 | EKG REPORT ---
SEVERITY:- NORMAL ECG - SINUS RHYTHM : Confirmed by: Kisha Parra MD 30-Dec-2018 07:36:13
[2018-12-30] MEDS: INSULIN LISPRO 100 UNIT/ML 3 ML VIAL SUBCUT SCH ×4 (07:43→21:50)
[2018-12-30 08:11] LABS: HEMATOCRIT 27.5 % (36.0-47.0); MEAN CORPUSCULAR HEMOGLOBIN 30.7 pg (27.0-33.4); MEAN CORPUSCULAR HGB CONC 33.1 g/dL (32.0-36.0); MEAN CORPUSCULAR VOLUME 93 fl (80-97); PLATELET COUNT 281 10^3/uL (150-450); RED BLOOD COUNT 2.97 10^6/uL (3.72-5.28); RED CELL DISTRIBUTION WIDTH 16.7 % (11.5-14.0); WHITE BLOOD COUNT 12.4 10^3/uL (4.0-10.5)
[2018-12-30] MEDS: METHYLPREDNISOLONE INJ 40 MG/1 ML SDV IV SCH ×3 (08:20→23:51)
[2018-12-30] MEDS: IPRATROPIUM/ALBUTEROL 0.5-2.5 MG/3 ML AMPUL NEB SCH ×3 (08:22→20:16)
[2018-12-30 08:27] LABS: ALANINE AMINOTRANSFERASE 16 U/L (9-52); ALKALINE PHOSPHATASE 49 U/L (38-126); ANION GAP 8 (5-19); ASPARTATE AMINO TRANSFERASE 6 U/L (14-36); BILIRUBIN,DIRECT 0.3 mg/dL (0.0-0.4); BILIRUBIN,TOTAL 0.3 mg/dL (0.2-1.3); BLOOD UREA NITROGEN 21 mg/dL (7-20); CALCIUM 7.4 mg/dL (8.4-10.2); CARBON DIOXIDE 22 mmol/L (22-30); CHLORIDE 107 mmol/L (98-107); GLUCOSE 226 mg/dL (75-110); POTASSIUM 4.7 mmol/L (3.6-5.0); SODIUM 137.4 mmol/L (137-145); TOTAL PROTEIN 5.3 g/dL (6.3-8.2); TRIGLYCERIDES 59 mg/dL (<150)
[2018-12-30 08:32] LABS: HEMOGLOBIN 9.1 g/dL (12.0-15.5)
[2018-12-30 08:39] LABS: DIRECT LDL 80 mg/dL (<100)
[2018-12-30 08:44] LABS: FREE T4 (FREE THYROXINE) 1.25 ng/dL (0.78-2.19)
[2018-12-30 08:55] LABS: ABSOLUTE LYMPHOCYTES# (MANUAL) 0.4 10^3/uL (0.5-4.7); ABSOLUTE MONOCYTES # (MANUAL) 0.6 10^3/uL (0.1-1.4); ABSOLUTE NEUTROPHILS# (MANUAL) 11.4 10^3/uL (1.7-8.2); ANISOCYTOSIS 1+; BAND NEUTROPHILS % (MANUAL) 1 % (3-5); BASOPHILS % (MANUAL) 0 % (0-2); EOSINOPHILS % (MANUAL) 0 % (0-6); LYMPHOCYTES % (MANUAL) 3 % (13-45); MONOCYTES % (MANUAL) 5 % (3-13); SEGMENTED NEUTROPHILS % (MAN) 91 % (42-78); TOTAL CELLS COUNTED 100
[2018-12-30 08:56] LABS: OVALOCYTES 1+; PLATELET COMMENT ADEQUATE; POIKILOCYTOSIS 1+; SCHISTOCYTES 1+
[2018-12-30 08:58] LABS: THYROID STIMULATING HORMONE 0.26 uIU/mL (0.47-4.68)
[2018-12-30] MEDS: DOCUSATE SODIUM 100 MG CAPSULE PO SCH (09:56)
[2018-12-30] MEDS: MAGNESIUM SULFATE 1 GM/D5W 100 ML IV SCH ×2 (09:57→11:11)
[2018-12-30] MEDS: ENOXAPARIN SODIUM INJ 40 MG/0.4 ML DISP.SYRIN SUBCUT SCH (09:57)
[2018-12-30] MEDS ORDERED: DILTIAZEM HCL 120 MG CAP.SR.24H PO SCH (10:00)
[2018-12-30] MEDS: NORMAL SALINE 1000 ML 1,000 ML IV PRN (11:11)
--- NOTE | 2018-12-30 12:17 | PDOC PROGRESS REPORT ---
Subjective Progress Note for:: 12/30/18 Subjective:: Spoke with daughter and patient was diagnosed at 35 with Crohn's was only on oral medication she was told that she needed quarterly colonoscopies and when patient refused, she was discharged from previous GI office and not treated any more having diarrhea and now had drop in Hgb it has been 18 months since her last colonoscopy she is due for a surveillance and likely is having a flare she and her daughter are agreeable to to proceeding with colonoscopy Reason For Visit: UTI,COPD EXACERBATION Physical Exam Vital Signs: Temp Pulse Resp BP Pulse Ox 97.5 F 76 17 118/65 94 12/30/18 03:39 12/30/18 08:22 12/30/18 08:22 12/30/18 08:00 12/30/18 08:22 Intake & Output 12/29/18 12/30/18 12/31/18 06:59 06:59 06:59 Intake Total 1169 1156 Balance 1169 1156 Weight 66.7 kg General appearance: PRESENT: no acute distress, well-developed, well-nourished Head exam: PRESENT: atraumatic, normocephalic Eye exam: PRESENT: EOMI, PERRLA. ABSENT: nystagmus, periorbital swelling, scleral icterus Mouth exam: PRESENT: moist, neck supple Throat exam: ABSENT: tonsillar exudate, tonsillogmegaly Neck exam: ABSENT: meningismus, tenderness, thyromegaly Respiratory exam: PRESENT: symmetrical, unlabored. ABSENT: tachypnea, wheezes Cardiovascular exam: PRESENT: RRR GI/Abdominal exam: PRESENT: soft. ABSENT: rebound, rigid, tenderness Extremities exam: ABSENT: joint swelling Neurological exam: PRESENT: oriented to time, oriented to situation, CN II-XII grossly intact Skin exam: PRESENT: normal color. ABSENT: mottled, pallor, urticaria, vesicles Results Laboratory Results: 12/30/18 07:49 12/30/18 07:49 12/30/18 12/30/18 12/30/18 07:49 07:49 07:49 WBC 12.4 H RBC 2.97 L Hgb 9.1 L D Hct 27.5 L MCV 93 MCH 30.7 MCHC 33.1 RDW 16.7 H Plt Count 281 Seg Neutrophils % Not Reportable Lymphocytes % Not Reportable Monocytes % Not Reportable Eosinophils % Not Reportable Basophils % Not Reportable Absolute Neutrophils Not Reportable Absolute Lymphocytes Not Reportable Absolute Monocytes Not Reportable Absolute Eosinophils Not Reportable Absolute Basophils Not Reportable Sodium 137.4 Potassium 4.7 Chloride 107 Carbon Dioxide 22 Anion Gap 8 BUN 21 H Creatinine 0.97 Est GFR ( Amer) > 60 Est GFR (Non-Af Amer) 55 L Glucose 226 H Calcium 7.4 L Phosphorus 3.0 Magnesium 0.9 L* Total Bilirubin 0.3 AST 6 L ALT 16 Alkaline Phosphatase 49 Total Protein 5.3 L Albumin 3.0 L Triglycerides 59 Cholesterol 150.90 LDL Cholesterol Direct 80 VLDL Cholesterol 12.0 HDL Cholesterol 68 TSH 0.26 L Free T4 1.25 12/29/18 12/30/18 08:33 07:49 Troponin I < 0.012 NT-Pro-B Natriuret Pep 1260 H Impressions: Chest CT 12/29/18 00:00 IMPRESSION: 1. Pulmonary nodules suspicious for malignancy. Consider follow-up PET-CT. 2. COPD. No infiltrate. Chest X-Ray 12/29/18 08:17 IMPRESSION: COPD. NO ACUTE RADIOGRAPHIC FINDING IN THE CHEST. Assessment & Plan - Diagnosis (1) Crohns disease Is this a current diagnosis for this admission?: Yes Plan: will schedule her for colonoscopy Risks, benefits and alternatives are discussed with the patient in detail she is willing to proceed prep orders are written daughter is agreeable to proceed RN is aware of prep orders and plans on this patient
--- NOTE | 2018-12-30 17:39 | PDOC PROGRESS REPORT ---
Subjective Progress Note for:: 12/30/18 Subjective:: This is 78 years old female patient brought by family members with of sputum. Complaint of shortness of breath and altered mental status. Her initial blood work shows markedly leukocytosis of 22,000 and her urinalysis is compatible with UTI. Patient has been getting Zithromax and ceftriaxone. Patient also COPD exacerbation and she has been on bronchodilators Z supplemental oxygen. This morning I seen patient resting in bed she has on and off cough which is productive of sputum. Her CT scan of the chest reported with pulmonary nodules suspicious for malignancy. I discussed the findings with her daughters and they told me they are aware of it and she has this problem for the last 6 years that she is being followed by oncologist in [facility]. Patient has also history of Crohn's disease and a daughter. She has a flare for which she we consulted GI and patient scheduled for colonoscopy tomorrow. Reason For Visit: UTI,COPD EXACERBATION Physical Exam Vital Signs: Temp Pulse Resp BP Pulse Ox 98.2 F 99 16 112/58 L 95 12/30/18 16:29 12/30/18 16:29 12/30/18 16:29 12/30/18 16:29 12/30/18 16:29 Intake & Output 12/29/18 12/30/18 12/31/18 06:59 06:59 06:59 Intake Total 1169 1256 Balance 1169 1256 Weight 66.7 kg General appearance: PRESENT: mild distress Head exam: PRESENT: atraumatic Eye exam: PRESENT: conjunctiva pink Teeth exam: PRESENT: edentulous Neck exam: PRESENT: carotid bruit, full ROM, JVD, lymphadenopathy, meningismus, tenderness, thyromegaly, tracheal deviation, tracheostomy, other Respiratory exam: PRESENT: crackles, decreased breath sounds, wheezes Cardiovascular exam: PRESENT: irregular rhythm. ABSENT: diastolic murmur, rubs, systolic murmur GI/Abdominal exam: PRESENT: normal bowel sounds, soft. ABSENT: distended, guarding, mass, organolmegaly, rebound, tenderness Neurological exam: PRESENT: alert, awake Results Laboratory Results: 12/30/18 07:49 12/30/18 07:49 12/30/18 12/30/18 12/30/18 07:49 07:49 07:49 WBC 12.4 H RBC 2.97 L Hgb 9.1 L D Hct 27.5 L MCV 93 MCH 30.7 MCHC 33.1 RDW 16.7 H Plt Count 281 Seg Neutrophils % Not Reportable Lymphocytes % Not Reportable Monocytes % Not Reportable Eosinophils % Not Reportable Basophils % Not Reportable Absolute Neutrophils Not Reportable Absolute Lymphocytes Not Reportable Absolute Monocytes Not Reportable Absolute Eosinophils Not Reportable Absolute Basophils Not Reportable Sodium 137.4 Potassium 4.7 Chloride 107 Carbon Dioxide 22 Anion Gap 8 BUN 21 H Creatinine 0.97 Est GFR ( Amer) > 60 Est GFR (Non-Af Amer) 55 L Glucose 226 H Calcium 7.4 L Phosphorus 3.0 Magnesium 0.9 L* Total Bilirubin 0.3 AST 6 L ALT 16 Alkaline Phosphatase 49 Total Protein 5.3 L Albumin 3.0 L Triglycerides 59 Cholesterol 150.90 LDL Cholesterol Direct 80 VLDL Cholesterol 12.0 HDL Cholesterol 68 TSH 0.26 L Free T4 1.25 12/29/18 12/30/18 08:33 07:49 Troponin I < 0.012 NT-Pro-B Natriuret Pep 1260 H Impressions: Chest CT 12/29/18 00:00 IMPRESSION: 1. Pulmonary nodules suspicious for malignancy. Consider follow-up PET-CT. 2. COPD. No infiltrate. Chest X-Ray 12/29/18 08:17 IMPRESSION: COPD. NO ACUTE RADIOGRAPHIC FINDING IN THE CHEST. Assessment & Plan - Diagnosis (1) Leukocytosis Is this a current diagnosis for this admission?: Yes Plan: Has been trending down from 22,00-12,000 (2) Hypomagnesemia Is this a current diagnosis for this admission?: Yes Plan: Repleted and will check her magnesium level in the a.m. (3) Atrial fibrillation with RVR Is this a current diagnosis for this admission?: Yes Plan: Now her heart rate is controlled. The Cardizem drip discontinued and switched to p.o. Cardizem. (4) Complicated UTI (urinary tract infection) Is this a current diagnosis for this admission?: Yes Plan: Continue ceftriaxone (5) COPD exacerbation Is this a current diagnosis for this admission?: Yes Plan: Continue supplemental oxygen and as needed bronchodilators.
[2018-12-30] MEDS ORDERED: POLYETHYLENE GLYCOL 3350 POWDER 17 GM/1 PACKET PO SCH (19:00)
[2018-12-30] MEDS ORDERED: POLYETHYLENE GLYCOL 3350 POWDER 17 GM/1 PACKET PO ONE (20:30)
[2018-12-30] MEDS: TEMAZEPAM 7.5 MG CAPSULE PO PRN (23:50)
[2018-12-30] MEDS ORDERED: DILTIAZEM HCL 60 MG TABLET PO ONE (23:59)
[2018-12-31] MEDS: NORMAL SALINE 1000 ML 1,000 ML IV PRN ×2 (02:23→22:35)
[2018-12-31 05:10] LABS: HEMATOCRIT 27.7 % (36.0-47.0); MEAN CORPUSCULAR HEMOGLOBIN 30.1 pg (27.0-33.4); MEAN CORPUSCULAR HGB CONC 32.4 g/dL (32.0-36.0); MEAN CORPUSCULAR VOLUME 93 fl (80-97); PLATELET COUNT 264 10^3/uL (150-450); RED BLOOD COUNT 2.98 10^6/uL (3.72-5.28); RED CELL DISTRIBUTION WIDTH 16.8 % (11.5-14.0); WHITE BLOOD COUNT 11.3 10^3/uL (4.0-10.5)
[2018-12-31 05:31] LABS: ANION GAP 7 (5-19); BLOOD UREA NITROGEN 18 mg/dL (7-20); CALCIUM 7.8 mg/dL (8.4-10.2); CARBON DIOXIDE 22 mmol/L (22-30); CHLORIDE 110 mmol/L (98-107); GLUCOSE 167 mg/dL (75-110); POTASSIUM 4.3 mmol/L (3.6-5.0); SODIUM 139.4 mmol/L (137-145)
[2018-12-31] MEDS: LANSOPRAZOLE 15 MG TAB.RAP.DR PO SCH (06:14)
[2018-12-31 06:40] LABS: ABSOLUTE LYMPHOCYTES# (MANUAL) 0.1 10^3/uL (0.5-4.7); ABSOLUTE MONOCYTES # (MANUAL) 0.3 10^3/uL (0.1-1.4); ABSOLUTE NEUTROPHILS# (MANUAL) 10.8 10^3/uL (1.7-8.2); BASOPHILS % (MANUAL) 0 % (0-2); EOSINOPHILS % (MANUAL) 0 % (0-6); HYPOCHROMASIA 1+; LYMPHOCYTES % (MANUAL) 1 % (13-45); MONOCYTES % (MANUAL) 3 % (3-13); PLATELET COMMENT ADEQUATE; PLATELET GIANT PRESENT; POLYCHROMASIA 1+; SEGMENTED NEUTROPHILS % (MAN) 96 % (42-78); TOTAL CELLS COUNTED 100
[2018-12-31] MEDS: IPRATROPIUM/ALBUTEROL 0.5-2.5 MG/3 ML AMPUL NEB SCH ×3 (08:19→20:31)
[2018-12-31] MEDS: DOCUSATE SODIUM 100 MG CAPSULE PO SCH (09:05)
[2018-12-31] MEDS: ENOXAPARIN SODIUM INJ 40 MG/0.4 ML DISP.SYRIN SUBCUT SCH (09:05)
[2018-12-31] MEDS: METHYLPREDNISOLONE INJ 40 MG/1 ML SDV IV SCH ×2 (09:05→17:00)
[2018-12-31] MEDS: INSULIN LISPRO 100 UNIT/ML 3 ML VIAL SUBCUT SCH ×4 (09:06→22:38)
[2018-12-31] MEDS ORDERED: DILTIAZEM HCL 60 MG TABLET PO SCH ×2 (10:00)
[2018-12-31] MEDS: DILTIAZEM HCL 120 MG CAP.SR.24H PO SCH ×2 (11:14→22:18)
[2018-12-31] MEDS: CEFTRIAXONE 1 GM/D5W RTU 1 GM/50 ML RTUPB IV SCH (11:14)
[2018-12-31] MEDS ORDERED: ALPRAZOLAM 0.5 MG TABLET PO ONE (11:30)
[2018-12-31] MEDS ORDERED: NALOXONE HCL INJ/PF 0.4 MG/1 ML SDV ONE (11:54)
[2018-12-31] MEDS ORDERED: DIPHENHYDRAMINE HCL 50 MG/ML VIAL ONE (11:54)
[2018-12-31] MEDS ORDERED: ONDANSETRON HCL INJ/PF 4 MG/2 ML SDV ONE (11:54)
[2018-12-31] MEDS ORDERED: FLUMAZENIL INJ 0.5 MG/5 ML VIAL ONE (11:54)
[2018-12-31] MEDS ORDERED: EPINEPHRINE INJ 1 MG/10 ML DISP.SYRIN ONE (11:55)
[2018-12-31] MEDS ORDERED: GLUCAGON,HUMAN RECOMB 1 MG INJ ONE (11:55)
[2018-12-31] MEDS: MIDAZOLAM 2 MG/2 ML INJ ONE ×5 (13:45→14:15)
[2018-12-31] MEDS: FENTANYL CITRATE INJ/PF 100 MCG/2 ML AMPUL ONE ×4 (13:47→14:08)
--- NOTE | 2018-12-31 14:33 | Operative Report ---
Operative Report DATE OF SURGERY: 12/31/18 Operative Report: The risks, benefits and alternatives of the procedure including the risks of bleeding, perforation requiring surgery have been explained to the patient in detail and informed consent has been obtained. The patient has brought back to the endoscopy suite and placed in the left, lateral decubital position. Timeout was called. Conscious sedation medication is administered. A rectal examination is done which did not reveal any masses, tears or fissures. An Olympus videoscope was introduced into the patient's rectum. The scope was then advanced all the way to the cecum. The cecum is identified by the usual anatomical landmarks of the ileocecal valve as well as the appendiceal office. The prep is poor. There is solid fecal material throughout the colon. The scope was then sequentially pulled back via the rest segments of the colon including the ascending colon, hepatic flexure, transverse colon, splenic flexure, descending colon and finally into the rectosigmoid portions of the colon. Retroflexion maneuver was performed. PREOPERATIVE DIAGNOSIS: Crohn's disease change in bowel habits POSTOPERATIVE DIAGNOSIS: Solids fecal material throughout the colon. Terminal ileitis or granuloma status post biopsy confirmation of Crohn's disease. Internal hemorrhoids OPERATION: Colonoscopy with biopsy SURGEON: JADON PACHECO ANESTHESIA: Moderate Sedation - 6 mg of Versed, 100 mcg of fentanyl. Conscious sedation monitoring time 30 minutes. TISSUE REMOVED OR ALTERED: As noted above. COMPLICATIONS: None. ESTIMATED BLOOD LOSS: None. INTRAOPERATIVE FINDINGS: As noted above. PROCEDURE: Patient tolerated the procedure well. No immediate postprocedure complications are noted. Patient sent back to her room in good condition. We will wait on the biopsies. Continue steroids for now All medications to include 5-ASA however I did speak to the family about consideration of Humira. We will determine that as outpatient
--- NOTE | 2018-12-31 14:50 | PDOC PROGRESS REPORT ---
Subjective Progress Note for:: 12/31/18 Subjective:: I seen patient resting in bed. She is awake alert. She is not in pain or distress. Her blood work shows that her leukocytosis has trended down and her WBC is close to normal. Her blood pressure is 97/64 and patient is getting Cardizem 120 mg twice a day and I switched her to once a day. This morning patient has colonoscopy. Reason For Visit: UTI,COPD EXACERBATION Physical Exam Vital Signs: Temp Pulse Resp BP Pulse Ox 98.4 F 85 21 H 134/67 H 96 12/31/18 12:31 12/31/18 14:00 12/31/18 14:00 12/31/18 14:00 12/31/18 14:00 Intake & Output 12/30/18 12/31/18 01/01/19 06:59 06:59 06:59 Intake Total 1169 2493 Balance 1169 2493 Weight 66.7 kg 68.5 kg General appearance: PRESENT: no acute distress Head exam: PRESENT: atraumatic Eye exam: PRESENT: conjunctiva pink Mouth exam: PRESENT: moist Teeth exam: PRESENT: edentulous Neck exam: ABSENT: carotid bruit, JVD, lymphadenopathy, thyromegaly Respiratory exam: PRESENT: clear to auscultation jasson. ABSENT: rales, rhonchi, wheezes Cardiovascular exam: PRESENT: irregular rhythm. ABSENT: diastolic murmur, rubs, systolic murmur Results Laboratory Results: 12/31/18 04:45 12/31/18 04:45 12/31/18 12/31/18 04:45 04:45 WBC 11.3 H RBC 2.98 L Hgb 9.0 L Hct 27.7 L MCV 93 MCH 30.1 MCHC 32.4 RDW 16.8 H Plt Count 264 Seg Neutrophils % Not Reportable Lymphocytes % Not Reportable Monocytes % Not Reportable Eosinophils % Not Reportable Basophils % Not Reportable Absolute Neutrophils Not Reportable Absolute Lymphocytes Not Reportable Absolute Monocytes Not Reportable Absolute Eosinophils Not Reportable Absolute Basophils Not Reportable Sodium 139.4 Potassium 4.3 Chloride 110 H Carbon Dioxide 22 Anion Gap 7 BUN 18 Creatinine 0.74 Est GFR ( Amer) > 60 Est GFR (Non-Af Amer) > 60 Glucose 167 H Calcium 7.8 L Magnesium 1.6 12/29/18 08:33 Catheterized Urine Urine Culture - Final Escherichia Coli 02/12/19 02/13/19 08:33 07:49 Troponin I < 0.012 NT-Pro-B Natriuret Pep 1260 H Impressions: Chest CT 12/29/18 00:00 IMPRESSION: 1. Pulmonary nodules suspicious for malignancy. Consider follow-up PET-CT. 2. COPD. No infiltrate. Chest X-Ray 12/29/18 08:17 IMPRESSION: COPD. NO ACUTE RADIOGRAPHIC FINDING IN THE CHEST. Assessment & Plan - Diagnosis (1) Leukocytosis Is this a current diagnosis for this admission?: Yes Plan: Has resolved (2) Hypomagnesemia Is this a current diagnosis for this admission?: Yes Plan: Repleted and will check her magnesium level in the a.m. (3) Atrial fibrillation with RVR Is this a current diagnosis for this admission?: Yes Plan: Rate controlled and patient does not want to be on anticoagulation. (4) Complicated UTI (urinary tract infection) Is this a current diagnosis for this admission?: Yes Plan: Continue ceftriaxone (5) COPD exacerbation Is this a current diagnosis for this admission?: Yes Plan: Continue supplemental oxygen and as needed bronchodilators. (6) Crohns disease Is this a current diagnosis for this admission?: Yes Plan: Status post colonoscopy.
[2018-12-31] MEDS ORDERED: METFORMIN HCL 500 MG TABLET PO SCH (22:00)
[2018-12-31] MEDS ORDERED: TIZANIDINE HCL 4 MG TABLET ONE (22:19)
[2018-12-31] MEDS: TIZANIDINE HCL 4 MG TABLET PO SCH (22:21)
--- NOTE | 2018-12-31 23:01 | Progress Note ---
Provider Note Provider Note: CARDIOLOGY PROGRESS NOTE by Dr. Kisha Parra on 12/31/2018. SUBJECTIVE: The patient states her breathing is better. She still has some cough. But no wheezing. She does state that she does not of orthopnea PND or leg edema. The patient continues to be in a chaotic atrial mechanism. There is no recurrence of multifocal atrial tachycardia, with the increase in the Cardizem CD to 120 mg p.o. twice daily. There is no TIA CVA symptoms. The patient is not febrile. There is no ventricular arrhythmia seen on the monitor. SUBJECTIVE: The patient is well-built. She is well-groomed. At present no acute distress. Selected Entries 12/31/18 12:31 Temperature 98.4 F Temperature Oral Source Pulse Rate 71 Respiratory 20 Rate Blood Pressure 121/59 L Blood Pressure 79 Mean BP Location Right Leg BP Position Supine O2 Sat by Pulse 92 Oximetry Oxygen Delivery Room Air Method HEAD: Head is atraumatic and normocephalic. EYES: Pupils are equal round regular reactive to light accommodation. Extraocular movements are normal, there is no conjunctival pallor, and no scleral icterus. EARS: Tympanic membranes are intact external auditory canals are clear. NOSE: There is no inflammation of the nasal mucous membrane there is no deviated nasal septum. MOUTH: Mucous membranes of mouth and tongue are moist, there is no ulcers in the mouth or tongue, and no bleeding from the gums. THROAT: There is no redness of the oropharynx, no exudate seen. SKIN: There is no petechia or ecchymosis. There is no rashes or lesions. NECK: Supple. There is no JVD. Carotids are equal there is no bruit. There is no lymphadenopathy. There is no goiter. Trachea central LUNGS: There is diminished air entry and prolonged expiration. There is scattered rhonchi. There is no wheezing or rales. . On percussion there is hyperresonance although there is no chest wall tenderness HEART: S1 and S2 are heard. S1 is of normal intensity, there is no S3 or S4 gallops. There is a systolic murmur the left sternal border and the apex. There is no rub. ABDOMEN: Normoactive bowel sounds, soft, nontender, no masses, no rebound, no guarding. There is no hepatosplenomegaly. EXTREMITIES: Femorals are slightly diminished. There is no femoral bruits. Leg pulses are diminished. There is no pedal edema. There is no DVT or cellulitis. There is no cyanosis or clubbing. There is no calf tenderness. NEUROLOGICAL the patient is awake alert oriented 3 with no focal deficits. PSYCHIATRIC: The patient judgment and insight are intact his affect is normal 12/31/18 12/31/18 12/31/18 04:45 04:45 06:20 WBC 11.3 H RBC 2.98 L Hgb 9.0 L Hct 27.7 L MCV 93 MCH 30.1 MCHC 32.4 RDW 16.8 H Plt Count 264 Total Counted 100 Sodium 139.4 Potassium 4.3 Chloride 110 H Carbon Dioxide 22 Anion Gap 7 BUN 18 Creatinine 0.74 Est GFR (Non-Af Amer) > 60 POC Glucose 174 H Calcium 7.8 L Magnesium 1.6 ECHO: Shows normal left ventricular systolic function with the EF was 65%. There is no wall motion abnormality, no LVH. LV left ventricular size is normal. There is mild pulmonary hypertension with right total systolic pressure of 47 mmHg. The right ventricle is mildly dilated, with mild RVH, and normal RV systolic function. No other significant valvular disease seen. Echo discussed with the patient. IMPRESSION/RECOMMENDATION: 1. There is no evidence of atrial fibrillation. The patient has multifocal atrial tachycardia, which is a common finding in people with COPD, especially with acute exacerbation. Would recommend increasing the patient's Cardizem drip to 10 mg/h. Would continue Lovenox for DVT prevention doses. Patient does not need full anticoagulation. 2. COPD with acute exacerbation: Continue respiratory treatments, and oxygen. 3. Diabetes mellitus type 2 [id number]. Continue antidiabetic medication, and monitor blood sugars. 4. Hypertension: Blood pressure seems to be controlled. 5. Tobacco abuse disorder: Tobacco cessation counseling given 3 minutes spent. Ill effects of tobacco have been excellent to the patient. 6. History of Crohn's disease: G has been consulted 7. Hypothyroidism: Continue replacement thyroid supplement. 8. Depression: Continue antidepressants. Medications reviewed. Medication discussed with the attending physician, including the management plan. Medical decision making is now of moderate complexity. 40 minutes spent on this patient with more than 50% of time spent in direct patient care.
--- NOTE | 2019-01-01 00:34 | XCELERA REPORT ---
[address] [address] Transthoracic Echocardiogram Report Name: JOSE DANIEL LONG Age: 78 yrs Gender: Female : 1940 Patient Status: Inpatient Patient Location: [facility]^A Study Date: 12/30/2018 10:42 AM Height: 65 in Weight: 138 lb BSA: 1.7 m2 Procedure: A two-dimensional transthoracic echocardiogram with color flow and Doppler was performed. Study Quality: Good. Reason For Study: afib rvr History: ATRIAL FIBRILLATION. Ordering Physician: LETICIA MCCARTNEY Performed By: Jenn Partida Interpretation Summary The left ventricle is normal in size. There is normal left ventricular wall thickness. LV EF is > THAN 65% The left ventricular ejection fraction is normal. Doppler measurements suggest impaired left ventricular relaxation, which is associated with grade I/IV or mild diastolic dysfunction The left ventricular wall motion is normal. There is no thrombus. There is no ventricular septal defect visualized. The right ventricle is mildly dilated. There is mild right ventricular hypertrophy. The right ventricular systolic function is normal. The right atrium is normal. The left atrial size is normal. The interatrial septum is intact with no evidence for an atrial septal defect. There is no evidence of mitral valve prolapse. There is no vegetation seen on the mitral valve. There is no mitral valve stenosis. There is no mitral regurgitation noted. There is no aortic valvular vegetation. There is no aortic valve stenosis There is aortic sclerosis without aortic stenosis. There is no LVOT obstruction. No aortic regurgitation is present. There is no tricuspid stenosis. There is a mild to moderate amount of tricuspid regurgitation There is mild pulmonary hypertension by echo rvsp IS 47 MM OF hG , WITH ra MEAN OF 10. There is no pulmonic valvular stenosis. The aortic root is normal size. There is no pericardial effusion. MMode/2D Measurements & Calculations RVDd: 3.4 cm LVIDd: 4.6 cm FS: 37.5 % Ao root diam: 2.8 cm IVSd: 0.91 cm LVIDs: 2.9 cm EDV(Teich): Ao root area: LVPWd: 0.87 cm 99.0 ml 6.0 cm2 ESV(Teich): LA dimension: 3.4 cm 32.1 ml EF(Teich): 67.6 % LVLd ap4: 8.3 cm SV(MOD-sp4): EDV(MOD-sp4): 60.0 ml 95.0 ml LVLs ap4: 6.1 cm ESV(MOD-sp4): 35.0 ml EF(MOD-sp4): 63.2 % Doppler Measurements & Calculations MV E max tracey: MV P1/2t max tracey: Ao V2 max: LV V1 max P.1 cm/sec 104.6 cm/sec 151.3 cm/sec 3.7 mmHg MV A max tracey: MV P1/2t: 63.8 msec Ao max PG: LV V1 max: 106.6 cm/sec MVA(P1/2t): 3.4 cm2 9.2 mmHg 96.3 cm/sec MV E/A: 0.98 MV dec slope: 480.3 cm/sec2 MV dec time: 0.22 sec PA V2 max: PI end-d tracey: TR max tracey: MV P1/2t-pr_phl: 86.4 cm/sec 122.2 cm/sec 304.1 cm/sec 63.8 msec PA max P.0 mmHg TR max P.0 mmHg Left Ventricle The left ventricle is normal in size. There is normal left ventricular wall thickness. LV EF is > THAN 65%. The left ventricular ejection fraction is normal. Doppler measurements suggest impaired left ventricular relaxation, which is associated with grade I/IV or mild diastolic dysfunction. The left ventricular wall motion is normal. There is no thrombus. There is no ventricular septal defect visualized. Right Ventricle The right ventricle is mildly dilated. There is mild right ventricular hypertrophy. The right ventricular systolic function is normal. Atria The right atrium is normal. The left atrial size is normal. The interatrial septum is intact with no evidence for an atrial septal defect. Mitral Valve There is mild mitral annular calcification. There is no evidence of mitral valve prolapse. There is no vegetation seen on the mitral valve. There is no mitral valve stenosis. There is no mitral regurgitation noted. Aortic Valve There is no aortic valvular vegetation. There is no aortic valve stenosis. There is aortic sclerosis without aortic stenosis. There is no LVOT obstruction. No aortic regurgitation is present. Tricuspid Valve There is no tricuspid stenosis. There is a mild to moderate amount of tricuspid regurgitation. There is mild pulmonary hypertension by echo. rvsp IS 47 MM OF hG , WITH ra MEAN OF 10. Pulmonic Valve There is no pulmonic valvular stenosis. There is a trace amount of pulmonic regurgitation. Great Vessels The aortic root is normal size. Effusions There is no pericardial effusion. : LETICIA MCCARTNEY > Kisha Parra
[2019-01-01] MEDS: METHYLPREDNISOLONE INJ 40 MG/1 ML SDV IV SCH ×2 (00:59→08:35)
[2019-01-01] MEDS ORDERED: LANSOPRAZOLE 15 MG TAB.RAP.DR PO SCH (06:00)
[2019-01-01] MEDS ORDERED: GLIMEPIRIDE 1 MG TABLET PO SCH (08:00)
[2019-01-01] MEDS: INSULIN LISPRO 100 UNIT/ML 3 ML VIAL SUBCUT SCH ×2 (08:35→12:17)
[2019-01-01] MEDS: IPRATROPIUM/ALBUTEROL 0.5-2.5 MG/3 ML AMPUL NEB SCH ×2 (08:51→13:35)
--- NOTE | 2019-01-01 08:58 | EKG REPORT ---
SEVERITY:- OTHERWISE NORMAL ECG - SINUS RHYTHM ATRIAL PREMATURE COMPLEX : Confirmed by: Kisha Parra MD 01-Jan-2019 08:58:15
[2019-01-01] MEDS ORDERED: DILTIAZEM HCL 120 MG CAP.SR.24H PO SCH (10:00)
[2019-01-01] MEDS ORDERED: LISINOPRIL 10 MG TABLET PO SCH (10:00)
[2019-01-01] MEDS ORDERED: CHLORTHALIDONE 25 MG TABLET PO SCH (10:00)
[2019-01-01] MEDS: DOCUSATE SODIUM 100 MG CAPSULE PO SCH (10:24)
[2019-01-01] MEDS: TIZANIDINE HCL 4 MG TABLET PO SCH (10:24)
[2019-01-01] MEDS: DILTIAZEM HCL 120 MG CAP.SR.24H PO SCH (10:24)
[2019-01-01] MEDS: CEFTRIAXONE 1 GM/D5W RTU 1 GM/50 ML RTUPB IV SCH (10:25)
[2019-01-01] MEDS: ENOXAPARIN SODIUM INJ 40 MG/0.4 ML DISP.SYRIN SUBCUT SCH (10:25)
[2019-01-01] MEDS ORDERED: DILTIAZEM HCL INJ 25 MG/5 ML VIAL IV ONE (11:30)
[2019-01-01] MEDS ORDERED: NICOTINE 7 MG/24 HR PATCH.TD24 TD SCH (12:00)
[2019-01-01] MEDS: NORMAL SALINE 1000 ML 1,000 ML IV PRN (12:18)
--- NOTE | 2019-01-01 13:07 | PDOC DISCHARGE SUMMARY ---
General - Admit/Disc Date/PCP Admission Date/Primary Care Provider: 12/29/18 10:10 ARA GARCIA MD Discharge Date: 01/01/19 - Discharge Diagnosis (1) Acute encephalopathy Is this a current diagnosis for this admission?: Yes Summary: due to UTI. It has resolved. 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 (5) Complicated UTI (urinary tract infection) Is this a current diagnosis for this admission?: Yes (6) COPD exacerbation Is this a current diagnosis for this admission?: Yes (7) Crohns disease Is this a current diagnosis for this admission?: Yes - Additional Information Resuscitation Status: Full Code Home Medications: Albuterol Sulfate [Ventolin 0.083% Neb 2.5 mg/3 ml Ampul] 1 vial NEB RTQIDP PRN 12/29/18 Chlorthalidone [Hygroton 25 mg Tablet] 25 mg PO DAILY 12/29/18 Diltiazem HCl [Dilt-Xr] 120 mg PO DAILY 12/29/18 Glimepiride [Amaryl] 2 mg PO DAILY 12/29/18 Glucosam/Chond/Hyalu/Cf Borate [Move Free Joint Health Tablet] 2 each PO QHS 12/29/18 Ipratropium/Albuterol Sulfate [Duoneb 3 ml Ampul] 3 ml NEB RTQIDP PRN 12/29/18 Lisinopril [Prinivil 40 mg Tablet] 40 mg PO DAILY 12/29/18 Metformin HCl [Glucophage 500 mg Tablet] 1,000 mg PO DAILY 12/29/18 Metformin HCl [Glucophage 500 mg Tablet] 500 mg PO QHS 12/29/18 Naproxen Sodium [Aleve] 440 mg PO DAILY 12/29/18 Naproxen Sodium [Aleve] 660 mg PO QHS 12/29/18 Thyroid,Pork [Nature-Throid] 16.25 mg PO DAILY 12/29/18 Tizanidine HCl [Zanaflex 4 Mg Tablet] 4 mg PO Q12 12/29/18 History of Present Illness History of Present Illness: JOSE DANIEL LONG is a 78 year old female who presented to the emergency room via EMS. The family called EMS because the patient had developed respiratory distress at home. When EMS arrived they found the patient to be acutely dyspneic with an O2 sat saturation of 89%. She responded quite quickly her oxygen saturations recuperated when she was set up. Her past medical history significant for dementia, COPD, hypertension, diabetes mellitus and atrial fibrillation. The patiently recently moved to this area from [place]. Her daughters report a history of Crohn's disease. Apparently her GI doctor in [place] was wanting to perform frequent colonoscopies and refused to see her when she would not comply. She has been off treatment for her Crohn's disease for over a year. She has developed diarrhea and has had several loose stools al ready today. Family reports that she has been more confused for the past several days. She has been weaker with difficulty ambulating. In the emergency room it was reported that she had atrial fibrillation with rapid ventricular response with rates in the 110s-120s. She was found to have evidence of a urinary tract infection. Her white blood cell count was elevated at 22.9. Kidney function and liver function was normal. Hospital Course Hospital Course: This is 78 years old female patient brought by family members with of sputum. Complaint of shortness of breath and altered mental status. Her initial blood work shows markedly leukocytosis of 22,000 and her urinalysis is compatible with UTI. Patient has been getting Zithromax and ceftriaxone. Patient also COPD exacerbation and she has been on bronchodilators and supplemental oxygen.Her CT scan of the chest reported with pulmonary nodules suspicious for malignancy. I discussed the findings with her daughters and they told me they are aware of it and she has this problem for the last 6 years that she is being followed by oncologist in [facility]. At presentation patient also found to have tachycardia in the range of 180s. Initially tachycardia attributed to atrial fibrillation but after she was evaluated by Dr. Parra who said patient rather have multifocal atrial tachycardia which is common in patients with COPD particularly during exacerbation. He said patient does not need full anticoagulation. Patient has also history of Crohn's disease and her daughter suspected patient might have a flare and GI consulted. Patient had colonoscopy done by Dr. Mcgarry. Morning I seen patient sitting up in bed and enjoying her breakfast. She does not have new complaint. Her vital signs are within normal limits and patient stable enough for discharge. Physical Exam Vital Signs: Temp Pulse Resp BP Pulse Ox 97.3 F 90 19 116/52 L 92 01/01/19 11:48 01/01/19 11:48 01/01/19 11:48 01/01/19 11:48 01/01/19 11:48 Intake & Output 12/31/18 01/01/19 01/02/19 06:59 06:59 06:59 Intake Total 2493 2159 1050 Output Total 0 Balance 2493 2159 1050 Weight 68.5 kg 71.7 kg General appearance: PRESENT: no acute distress Head exam: PRESENT: atraumatic Mouth exam: PRESENT: moist Teeth exam: PRESENT: edentulous Neck exam: ABSENT: carotid bruit, JVD, lymphadenopathy, thyromegaly Respiratory exam: PRESENT: wheezes Cardiovascular exam: PRESENT: tachycardia GI/Abdominal exam: PRESENT: normal bowel sounds, soft. ABSENT: distended, guarding, mass, organolmegaly, rebound, tenderness Neurological exam: PRESENT: alert, awake Results Laboratory Results: 12/31/18 04:45 12/31/18 04:45 01/01/19 01/01/19 04:30 04:30 Magnesium 1.6 TSH 0.18 L 12/29/18 12/30/18 08:33 07:49 Troponin I < 0.012 NT-Pro-B Natriuret Pep 1260 H Impressions: Chest CT 12/29/18 00:00 IMPRESSION: 1. Pulmonary nodules suspicious for malignancy. Consider follow-up PET-CT. 2. COPD. No infiltrate. Chest X-Ray 12/29/18 08:17 IMPRESSION: COPD. NO ACUTE RADIOGRAPHIC FINDING IN THE CHEST. Qualifiers - * PATIENT BEING DISCHARGED WITH ANY OF THE FOLLOWING DIAGNOSIS: No
[2019-01-01 13:38] VITALS: BP 112/51
== END 2019-01-01 14:11 | disposition home health service (06) | DRG 689 ==
LOC: ER 08:04 → EH 10:10 → 3W 19:49
PROVIDERS: ADMIT Internal Medicine; ATTEND Internal Medicine
PROC: 3E0F3GC Introduction of Other Therapeutic Substance into Respiratory Tract, Percutaneous Approach (ICD-10-PCS; 2018-12-29)
PROC: 0DJD8ZZ Inspection of Lower Intestinal Tract, Via Natural or Artificial Opening Endoscopic (ICD-10-PCS; principal; 2018-12-31 13:30)
PROC: 3E02340 Introduction of Influenza Vaccine into Muscle, Percutaneous Approach (ICD-10-PCS; 2019-01-01)
DX: N39.0 Urinary tract infection, site not specified (principal); J96.00 Acute respiratory failure, unspecified whether with hypoxia or hypercapnia; J44.1 Chronic obstructive pulmonary disease with (acute) exacerbation; G93.40 Encephalopathy, unspecified; K50.90 Crohn's disease, unspecified, without complications; I47.1 Supraventricular tachycardia; I27.20 Pulmonary hypertension, unspecified; E83.42 Hypomagnesemia; E11.9 Type 2 diabetes mellitus without complications; F03.90 Unspecified dementia, unspecified severity, without behavioral disturbance, psychotic disturbance, mood disturbance, and anxiety; R91.8 Other nonspecific abnormal finding of lung field; I10 Essential (primary) hypertension; R26.9 Unspecified abnormalities of gait and mobility; K64.8 Other hemorrhoids; B96.20 Unspecified Escherichia coli [E. coli] as the cause of diseases classified elsewhere; E03.9 Hypothyroidism, unspecified; F32.9 Major depressive disorder, single episode, unspecified; F17.200 Nicotine dependence, unspecified, uncomplicated; Z79.84 Long term (current) use of oral hypoglycemic drugs; Z23 Encounter for immunization
CPT/HCPCS: 36415; 45380; 51701; 71045; 71250; 80048; 80053; 80061; 80076; 81001; 82962; 83036; 83605; 83735; 83880; 84100; 84439; 84443; 84484; 85025; 85610; 85730; 87040; 87086; 87088; 87186; 87804; 88305; 90686; 93005; 93010; 93306; 94640; 96365; 96368; 96375; 96376; 99291; J0171; J0456; J0696; J1200; J1610; J1650; J1815; J2250; J2310; J2405; J2920; J2930; J3010; J3475; J3490; J7030; J7620

== ENCOUNTER 2019-01-01 22:35 | Emergency (ER) | payer MEDICARE, MEDICAID ==
[2019-01-01 22:48] VITALS: BP 153/78
== END 2019-01-01 23:30 | disposition left against medical advice (07) ==
LOC: ER 22:35
DX: Z53.21 Procedure and treatment not carried out due to patient leaving prior to being seen by health care provider (principal)

== ENCOUNTER 2019-02-10 15:24 | Inpatient (IN) | payer MEDICARE, MEDICAID ==
--- NOTE | 2019-02-10 16:59 | RADIOLOGY REPORT (SQ) ---
EXAM DESCRIPTION: CT HEAD WITHOUT COMPLETED DATE/TIME: 02/10/2019 4:43 pm REASON FOR STUDY: right arm numbness COMPARISON: None. TECHNIQUE: Axial images acquired through the brain without intravenous contrast. Images reviewed wi th bone, brain and subdural windows. Additional sagittal and coronal reconstructions were generated. Images stored on PACS. All CT scanners at this facility use dose modulation, iterative reconstruction, and/or weight based d osing when appropriate to reduce radiation dose to as low as reasonably achievable (ALARA). [facility]: Dose Right [facility]: CareDose [facility]: Dose Right [facility]: Teradose 4D [facility]: Smart [place] RADIATION DOSE: CT Rad equipment meets quality standard of care and radiation dose reduction techniq ues were employed. CTDIvol: 53.2 mGy. DLP: 991 mGy-cm.mGy. LIMITATIONS: None. FINDINGS: VENTRICLES: Prominent. CEREBRUM: No masses. No hemorrhage. No midline shift. Areas of low density in the white matter mos t likely due to chronic micro-vascular ischemic change. No evidence for acute infarction. CEREBELLUM: No masses. No hemorrhage. No alteration of density. No evidence for acute infarction. EXTRAAXIAL SPACES: Age-related involutional change. No fluid collections. No masses. ORBITS AND GLOBE: No intra- or extraconal masses. Normal contour of globe without masses. CALVARIUM: No fracture. PARANASAL SINUSES: No fluid or mucosal thickening. SOFT TISSUES: No mass or hematoma. OTHER: No other significant finding. IMPRESSION: CHRONIC CHANGES OF ATROPHY AND MICROVASCULAR ISCHEMIA. NO ACUTE PROCESS. EVIDENCE OF ACUTE STROKE: NO. TECHNICAL DOCUMENTATION: JOB ID: [id number] Quality ID # [id number]: Final reports with documentation of one or more dose reduction techniques (e.g., Au tomated exposure control, adjustment of the mA and/or kV according to patient size, use of iterative reconstruction technique) 2010 [employer]- All Rights Reserved Reading location - IP/workstation name: [email or web address]
--- NOTE | 2019-02-10 17:05 | RADIOLOGY REPORT (SQ) ---
EXAM DESCRIPTION: CHEST SINGLE VIEW COMPLETED DATE/TIME: 02/10/2019 4:34 pm REASON FOR STUDY: arm numbness COMPARISON: 12/29/2018. NUMBER OF VIEWS: One view. TECHNIQUE: Single frontal radiographic view of the chest acquired. LIMITATIONS: None. FINDINGS: LUNGS AND PLEURA: No opacities, masses or pneumothorax. No pleural effusion. Attenuated bl ood vessels and flattened deejay-diaphragms. MEDIASTINUM AND HILAR STRUCTURES: No masses. Contour normal. HEART AND VASCULAR STRUCTURES: Heart normal in size. Normal vasculature. BONES: No acute findings. Kyphoplasty cement. HARDWARE: None in the chest. OTHER: No other significant finding. IMPRESSION: COPD. NO ACUTE RADIOGRAPHIC FINDING IN THE CHEST. TECHNICAL DOCUMENTATION: JOB ID: [id number] [employer]- All Rights Reserved Reading location - IP/workstation name: [email or web address]
--- NOTE | 2019-02-10 17:11 | ER Document Report ---
ED Medical Screen (RME) - General Chief Complaint: Numbness of Arm Stated Complaint: RIGHT SIDED NUMBNESS/BURNING Time Seen by Provider: 02/10/19 16:00 Primary Care Provider: ARA GARCIA MD [Primary Care Provider] - Follow up as needed Notes: Patient is a 78-year-old female with dementia that presents to the emergency department for chief complaint of bilateral hand numbness, and right-sided pain. Patient is a poor historian, apparently she started having right-sided hand numbness this morning, and it became left-sided, then she was complaining of right-sided pain. ROS: Other than noted above, the 12 point review of systems was reviewed with the patient and were negative, all pertinent findings are included in the HPI. PHYSICAL EXAMINATION: Vital signs reviewed. GENERAL: Elderly female, no acute distress HEAD: Atraumatic, normocephalic. EYES: Pupils equal round extraocular movements intact, conjunctiva are normal. ENT: Nares patent NECK: Normal range of motion CV: Heart rate tachycardic, irregular rhythm LUNGS: No respiratory distress Musculoskeletal: Normal range of motion NEUROLOGICAL: Normal speech PSYCH: Normal mood, normal affect. MDM: Patient seen and examined for rapid initial assessment. Vital signs reviewed. A comprehensive ED assessment and evaluation of the patient, analysis of test results and completion of the medical decision making process will be conducted by additional ED providers. *Note is created using voice recognition software and may contain spelling, syntax or grammatical errors. TRAVEL OUTSIDE OF THE [place] IN LAST 30 DAYS: No - Related Data Allergies/Adverse Reactions: No Known Allergies Allergy (Verified 02/10/19 16:10) Past Medical History - Social History Chew tobacco use (# tins/day): No Frequency of alcohol use: None Drug Abuse: None - Past Medical History Cardiac Medical History: Reports: Hx Atrial Fibrillation, Hx Hypertension Pulmonary Medical History: Reports: Hx COPD Neurological Medical History: Denies: Hx Seizures Endocrine Medical History: Reports: Hx Diabetes Mellitus Type 2 Renal/ Medical History: Denies: Hx Peritoneal Dialysis GI Medical History: Reports: Hx Crohn's Disease Psychiatric Medical History: Reports: Hx Depression Past Surgical History: Reports: Hx Abdominal Surgery - untwist intestine, Hx Orthopedic Surgery Physical Exam - Vital signs Vitals: Temp Pulse Resp BP Pulse Ox 97.8 F 115 H 18 113/46 L 99 02/10/19 15:39 02/10/19 15:39 02/10/19 15:39 02/10/19 15:39 02/10/19 15:39 Course - Vital Signs Vital signs: Temp Pulse Resp BP Pulse Ox 97.8 F 115 H 18 113/46 L 99 02/10/19 15:39 02/10/19 15:39 02/10/19 15:39 02/10/19 15:39 02/10/19 15:39 Doctor's Discharge - Discharge Referrals: ARA GARCIA MD [Primary Care Provider] - Follow up as needed
[2019-02-10 17:43] LABS: ABSOLUTE BASOPHILS # (AUTO) 0.1 10^3/uL (0.0-0.2); ABSOLUTE EOSINOPHILS # (AUTO) 0.1 10^3/uL (0.0-0.6); ABSOLUTE LYMPHOCYTES (AUTO) 1.7 10^3/uL (0.5-4.7); ABSOLUTE MONOCYTES (AUTO) 0.9 10^3/uL (0.1-1.4); ABSOLUTE NEUT (AUTO) 11.2 10^3/uL (1.7-8.2); BASOPHILS % (AUTO) 0.5 % (0-2); EOSINOPHILS % (AUTO) 0.5 % (0-6); HEMATOCRIT 38.5 % (36.0-47.0); HEMOGLOBIN 12.6 g/dL (12.0-15.5); MEAN CORPUSCULAR HEMOGLOBIN 30.1 pg (27.0-33.4); MEAN CORPUSCULAR HGB CONC 32.7 g/dL (32.0-36.0); MEAN CORPUSCULAR VOLUME 92 fl (80-97); MONOCYTES % (AUTO) 6.3 % (3-13); PLATELET COUNT 314 10^3/uL (150-450); RED BLOOD COUNT 4.18 10^6/uL (3.72-5.28); RED CELL DISTRIBUTION WIDTH 15.2 % (11.5-14.0); SEGMENTED NEUTROPHILS % (AUTO) 80.7 % (42-78); TOTAL CELLS COUNTED % (AUTO) 100 %; WHITE BLOOD COUNT 13.9 10^3/uL (4.0-10.5)
[2019-02-10 17:48] LABS: APPEARANCE,URINE CLEAR; BILIRUBIN,URINE NEGATIVE (NEGATIVE); GLUCOSE, URINE NEGATIVE (NEGATIVE); KETONES,URINE NEGATIVE (NEGATIVE); LEUKOCYTE ESTERASE,URINE LARGE (NEGATIVE); NITRITE,URINE NEGATIVE (NEGATIVE); PROTEIN,URINE 30 mg/dL (NEGATIVE); URINE SPECIFIC GRAVITY 1.019; UROBILINOGEN,URINE NEGATIVE mg/dL (<2.0)
[2019-02-10 17:50] LABS: COLOR,URINE YELLOW
[2019-02-10 17:58] LABS: ALANINE AMINOTRANSFERASE 19 U/L (9-52); ALBUMIN 3.2 g/dL (3.5-5.0); ALKALINE PHOSPHATASE 61 U/L (38-126); ANION GAP 14 (5-19); ASPARTATE AMINO TRANSFERASE 12 U/L (14-36); BILIRUBIN,DIRECT 0.5 mg/dL (0.0-0.4); BILIRUBIN,TOTAL 0.5 mg/dL (0.2-1.3); BLOOD UREA NITROGEN 12 mg/dL (7-20); CALCIUM 8.2 mg/dL (8.4-10.2); CARBON DIOXIDE 21 mmol/L (22-30); CHLORIDE 106 mmol/L (98-107); CREATINE KINASE 23 U/L (30-135); GLUCOSE 132 mg/dL (75-110); SODIUM 140.5 mmol/L (137-145); TOTAL PROTEIN 5.7 g/dL (6.3-8.2)
[2019-02-10 18:10] LABS: CREATINE KINASE MB 1.33 ng/mL (<4.55)
[2019-02-10 18:19] LABS: POTASSIUM 2.3 mmol/L (3.6-5.0)
[2019-02-10 18:20] LABS: TROPONIN I 0.051 ng/mL
[2019-02-10] MEDS ORDERED: POTASSIUM CHLORIDE 20 MEQ/15 ML UDCUP PO ONE (18:23)
[2019-02-10] MEDS ORDERED: LEVOFLOXACIN 750 MG/D5W RTU 750 MG/150 ML RTUPB IV ONE (19:30)
[2019-02-10] MEDS ORDERED: NORMAL SALINE 500 ML IV ONE (19:33)
[2019-02-10] MEDS: POTASSI CL 20 MEQ/50 ML RIDER 20 MEQ/50 ML RTUPB IV SCH ×2 (19:42→21:50)
[2019-02-10] MEDS: MAGNESIUM SULFATE/D5W 1 GM/100 ML RTUPB IV SCH ×2 (21:13→22:46)
[2019-02-10] MEDS ORDERED: IPRATROPIUM/ALBUTEROL 0.5-2.5 MG/3 ML AMPUL NEB PRN (21:15)
[2019-02-10] MEDS ORDERED: ACETAMINOPHEN 325 MG TABLET PO PRN (21:15)
[2019-02-10] MEDS ORDERED: MAG HYDROX/AL HYDROX/SIMETH SUSP 30 ML UDCUP PO PRN (21:15)
[2019-02-10] MEDS ORDERED: MAGNESIUM HYDROXIDE SUSP 30 ML UDCUP PO PRN (21:15)
--- NOTE | 2019-02-10 21:18 | ER Document Report ---
ED General - General Chief Complaint: Numbness of Arm Stated Complaint: RIGHT SIDED NUMBNESS/BURNING Time Seen by Provider: 02/10/19 16:00 Primary Care Provider: ARA GARCIA MD [ACTIVE STAFF] - Follow up as needed TRAVEL OUTSIDE OF THE [place] IN LAST 30 DAYS: No - HPI Notes: Patient presents to the emergency department for evaluation. She has a history of dementia and is a difficult historian. In short she has had some numbness. She described it as hand numbness. She states she was feeling spasms in her right upper extremity. She has been complaining of some weakness. She was being treated with amoxicillin has had some diarrhea as of late. The amoxicillin is "to keep a toe from getting infected" per the daughters. No fevers. She did have emesis a few days ago. Still urinating. - Related Data Allergies/Adverse Reactions: No Known Allergies Allergy (Verified 02/10/19 16:10) Past Medical History - General Information source: Patient, Relative - Social History Smoking Status: Current Every Day Smoker Chew tobacco use (# tins/day): No Frequency of alcohol use: None Drug Abuse: None Family History: Reviewed & Not Pertinent Patient has suicidal ideation: No Patient has homicidal ideation: No - Past Medical History Cardiac Medical History: Reports: Hx Atrial Fibrillation, Hx Hypertension Pulmonary Medical History: Reports: Hx COPD Neurological Medical History: Denies: Hx Seizures Endocrine Medical History: Reports: Hx Diabetes Mellitus Type 2 Renal/ Medical History: Denies: Hx Peritoneal Dialysis GI Medical History: Reports: Hx Crohn's Disease Psychiatric Medical History: Reports: Hx Depression Past Surgical History: Reports: Hx Abdominal Surgery - untwist intestine, Hx Orthopedic Surgery Review of Systems - Review of Systems Constitutional: Weakness EENT: No symptoms reported Cardiovascular: No symptoms reported Respiratory: No symptoms reported Gastrointestinal: See HPI Genitourinary: No symptoms reported Musculoskeletal: No symptoms reported Skin: See HPI Neurological/Psychological: See HPI Physical Exam - Vital signs Vitals: Temp Pulse Resp BP Pulse Ox 97.8 F 115 H 18 113/46 L 99 02/10/19 15:39 02/10/19 15:39 02/10/19 15:39 02/10/19 15:39 02/10/19 15:39 - Notes Notes: Vital signs reviewed, please refer to chart. Patient is normocephalic, atraumatic. Pupils equal round, reactive to light. Neck is supple without meningismus. Heart is regular rate and rhythm. Lungs are clear to auscultation bilaterally. Abdomen is soft, nontender, normoactive bowel sounds throughout. Extremities without cyanosis, clubbing. No posterior calf tenderness. Examination of the right foot yields some mild erythema and onychomycosis to the right great toe. No significant calor. She does also have a 2 cm wound to the lateral aspect of the dorsum of the foot. No significant surrounding erythema. Peripheral pulses are equal. Skin is warm and dry. Patient is awake, alert, pleasantly confused. She is disoriented to place and time, which is baseline per daughter's.. Course - Re-evaluation Re-evalutation: 02/10/19 21:16 Patient presents to the emergency department for evaluation. She had initial orders as placed by triage. Laboratory investigations revealed a marked hypokalemia. I did order magnesium and this was found to be markedly low as w ell. Urine revealed large leukocyte esterase, this was sent for urine culture. Her urine in the past had revealed an E. coli, DEMETRICE best to fluoroquinolones. She was given IV Levaquin. Patient is remained stable. I do not see any overt signs of active infection in her skin or feet. She remained on the monitor. Patient alternated between sinus with frequent PACs and atrial fibrillation. She had no chest pain or difficulty breathing with all of this. I spoke with Dr. Meeks, he will admit the patient for further care. - Vital Signs Vital signs: Temp Pulse Resp BP Pulse Ox 97.5 F 115 H 18 116/75 97 02/10/19 19:48 02/10/19 19:28 02/10/19 19:28 02/10/19 19:28 02/10/19 19:28 - Laboratory Result Diagrams: 02/10/19 17:05 02/10/19 17:05 Laboratory results interpreted by me: 02/10/19 02/10/19 02/10/19 17:05 17:05 17:05 WBC 13.9 H RDW 15.2 H Seg Neutrophils % 80.7 H Lymphocytes % 12.0 L Absolute Neutrophils 11.2 H Potassium 2.3 L* Carbon Dioxide 21 L Est GFR ( Amer) 50 L Est GFR (Non-Af Amer) 41 L Glucose 132 H Calcium 8.2 L Magnesium Direct Bilirubin 0.5 H AST 12 L Creatine Kinase 23 L Total Protein 5.7 L Albumin 3.2 L Urine Protein 30 H Ur Leukocyte Esterase LARGE H 02/10/19 17:05 WBC RDW Seg Neutrophils % Lymphocytes % Absolute Neutrophils Potassium Carbon Dioxide Est GFR ( Amer) Est GFR (Non-Af Amer) Glucose Calcium Magnesium 0.8 L* Direct Bilirubin AST Creatine Kinase Total Protein Albumin Urine Protein Ur Leukocyte Esterase Discharge - Discharge Clinical Impression: Sepsis due to urinary tract infection, Leukocytosis, Hypokalemia, Hypomagnesemia Condition: Stable Disposition: ADMITTED INPATIENT Admitting Provider: Hospitalist - [facility] Admitted: Telemetry Referrals: ARA GARCIA MD [ACTIVE STAFF] - Follow up as needed
--- NOTE | 2019-02-10 21:25 | EKG REPORT ---
SEVERITY:- ABNORMAL ECG - SINUS TACHYCARDIA SUPRAVENTRICULAR BIGEMINY BORDERLINE T ABNORMALITIES, LATERAL LEADS : Confirmed by: Kisha Parra MD 10-Feb-2019 21:24:22
[2019-02-10] MEDS: MESALAMINE 400 MG CAPSULE.DR PO SCH (22:03)
[2019-02-10] MEDS: DOCUSATE SODIUM 100 MG CAPSULE PO SCH (22:03)
[2019-02-10] MEDS: DILTIAZEM HCL 120 MG CAP.SR.24H PO SCH (22:04)
[2019-02-10] MEDS: HEPARIN SOD (PORCINE) 5,000 UNIT/ML 1 ML SYRINGE SUBCUT SCH (22:49)
[2019-02-11] MEDS ORDERED: LEVOFLOXACIN 750 MG/D5W RTU 750 MG/150 ML RTUPB IV ONE (00:05)
[2019-02-11] MEDS: MAGNESIUM SULFATE/D5W 1 GM/100 ML RTUPB IV SCH ×2 (02:15→03:12)
[2019-02-11] MEDS ORDERED: MAGNESIUM SULFATE/D5W 1 GM/100 ML RTUPB IV ONE (03:08)
[2019-02-11] MEDS: NORMAL SALINE 1000 ML 1,000 ML IV PRN ×3 (05:26→18:09)
[2019-02-11] MEDS: HEPARIN SOD (PORCINE) 5,000 UNIT/ML 1 ML SYRINGE SUBCUT SCH ×3 (05:26→21:49)
--- NOTE | 2019-02-11 05:34 | PDOC H&P ---
History of Present Illness Admission Date/PCP: 02/10/19 21:15 JEANIE CANADA PA-C Patient complains of: Numbness and tingling History of Present Illness: JOSE DANIEL LONG is a 78 year old female with a past medical history of dementia, A. fib with RVR, COPD, urinary tract infection and generalized debility. She presents with vague complaints of numbness tingling of the upper extremities. Labs reveal profound hypomagnesemia anemia and hypokalemia of 1.8 and 2.3 respectively. Patient was recently started on chlorthalidone. She is also found to have pyuria. She started on electrolyte repletion and empiric antibiotics then referred to the hospitalist for admission. Denies nausea vomiting or fever. Past Medical History Cardiac Medical History: Reports: Atrial Fibrillation, Hypertension Pulmonary Medical History: Reports: Chronic Obstructive Pulmonary Disease (COPD) Neurological Medical History: Denies: Seizures Endocrine Medical History: Reports: Diabetes Mellitus Type 2 GI Medical History: Reports: Crohn's Disease Psychiatric Medical History: Reports: Depression Past Surgical History Past Surgical History: Reports: Orthopedic Surgery Social History Information Source: Patient, [facility], [facility] Records Lives with: Family Smoking Status: Current Every Day Smoker Last Time Smoked: 02/10/19 Frequency of Alcohol Use: None Hx Recreational Drug Use: No Drugs: None Hx Prescription Drug Abuse: No - Advance Directive Resuscitation Status: Full Code Family History Family History: Hypertension Parental Family History Reviewed: Yes Children Family History Reviewed: Yes Sibling(s) Family History Reviewed.: Yes Medication/Allergy Home Medications: Chlorthalidone [Hygroton 25 mg Tablet] 25 mg PO DAILY 12/29/18 Diltiazem HCl [Dilt-Xr] 120 mg PO DAILY 12/29/18 Glimepiride [Amaryl] 2 mg PO DAILY 12/29/18 Glucosam/Chond/Hyalu/Cf Borate [Move Free Joint Health Tablet] 2 each PO QHS 12/29/18 Ipratropium/Albuterol Sulfate [Duoneb 3 ml Ampul] 3 ml NEB RTQIDP PRN 12/29/18 Lisinopril [Prinivil 40 mg Tablet] 40 mg PO DAILY 12/29/18 Metformin HCl [Glucophage 500 mg Tablet] 1,000 mg PO DAILY 12/29/18 Metformin HCl [Glucophage 500 mg Tablet] 500 mg PO QHS 12/29/18 Naproxen Sodium [Aleve] 440 mg PO DAILY 12/29/18 Naproxen Sodium [Aleve] 660 mg PO QHS 12/29/18 Thyroid,Pork [Nature-Throid] 16.25 mg PO DAILY 12/29/18 Tizanidine HCl [Zanaflex 4 mg Tablet] 4 mg PO Q12 12/29/18 Docusate Sodium [Colace 100 mg Capsule] 100 mg PO DAILY #60 capsule 01/01/19 Levofloxacin [Levaquin 500 mg Tablet] 500 mg PO DAILY #5 tablet 01/01/19 Mesalamine [Asacol Sr 400 mg Capsule] 800 mg PO BID #60 tab.sr 01/01/19 Prednisone [Deltasone 20 mg Tablet] 40 mg PO DAILY #14 tablet 01/01/19 Allergies/Adverse Reactions: No Known Allergies Allergy (Verified 02/10/19 16:10) Review of Systems ROS unobtainable: Due to mental status Constitutional: ABSENT: chills, fever(s), headache(s), weight gain, weight loss Eyes: ABSENT: visual disturbances Ears: ABSENT: hearing changes Cardiovascular: ABSENT: chest pain, dyspnea on exertion, edema, orthropnea, palpitations Respiratory: ABSENT: cough, hemoptysis Gastrointestinal: ABSENT: abdominal pain, constipation, diarrhea, hematemesis, hematochezia, nausea, vomiting Genitourinary: ABSENT: dysuria, hematuria Musculoskeletal: ABSENT: joint swelling Integumentary: ABSENT: rash, wounds Neurological: ABSENT: abnormal gait, abnormal speech, confusion, dizziness, focal weakness, syncope Psychiatric: ABSENT: anxiety, depression, homidical ideation, suicidal ideation Endocrine: ABSENT: cold intolerance, heat intolerance, polydipsia, polyuria Hematologic/Lymphatic: ABSENT: easy bleeding, easy bruising Physical Exam Vital Signs: Temp Pulse Resp BP Pulse Ox 97.5 F 96 17 106/57 L 97 02/11/19 00:03 02/11/19 02:00 02/11/19 00:03 02/11/19 00:03 02/11/19 00:03 Intake & Output 02/09/19 02/10/19 02/11/19 11:59 11:59 11:59 Intake Total 1145 Balance 1145 Weight 62.4 kg General appearance: PRESENT: cooperative, hard of hearing, mild distress. ABSENT: disheveled Head exam: PRESENT: atraumatic, normocephalic Eye exam: PRESENT: conjunctiva pink, EOMI, PERRLA. ABSENT: scleral icterus Ear exam: PRESENT: normal external ear exam Mouth exam: PRESENT: dry mucosa, tongue midline Neck exam: ABSENT: carotid bruit, JVD, lymphadenopathy, thyromegaly Respiratory exam: PRESENT: clear to auscultation jasson. ABSENT: rales, rhonchi, wheezes Cardiovascular exam: PRESENT: irregular rhythm, +S1, +S2, tachycardia Pulses: PRESENT: normal dorsalis pedis pul Vascular exam: PRESENT: normal capillary refill GI/Abdominal exam: PRESENT: normal bowel sounds, soft. ABSENT: distended, guarding, mass, organolmegaly, rebound, tenderness Rectal exam: PRESENT: deferred Extremities exam: PRESENT: full ROM. ABSENT: calf tenderness, clubbing, pedal edema Neurological exam: PRESENT: alert, awake, oriented to person, oriented to situation, CN II-XII grossly intact. ABSENT: motor sensory deficit Psychiatric exam: PRESENT: appropriate affect, normal mood. ABSENT: homicidal ideation, suicidal ideation Skin exam: PRESENT: dry, intact, warm. ABSENT: cyanosis, rash Results Laboratory Results: 02/10/19 02/10/19 02/10/19 17:05 17:05 17:05 WBC 13.9 H RBC 4.18 Hgb 12.6 Hct 38.5 MCV 92 MCH 30.1 MCHC 32.7 RDW 15.2 H Plt Count 314 Seg Neutrophils % 80.7 H Lymphocytes % 12.0 L Monocytes % 6.3 Eosinophils % 0.5 Basophils % 0.5 Absolute Neutrophils 11.2 H Absolute Lymphocytes 1.7 Absolute Monocytes 0.9 Absolute Eosinophils 0.1 Absolute Basophils 0.1 Sodium 140.5 Potassium 2.3 L* Chloride 106 Carbon Dioxide 21 L Anion Gap 14 BUN 12 Creatinine 1.25 Est GFR ( Amer) 50 L Est GFR (Non-Af Amer) 41 L Glucose 132 H Lactic Acid Calcium 8.2 L Magnesium Total Bilirubin 0.5 AST 12 L ALT 19 Alkaline Phosphatase 61 Total Protein 5.7 L Albumin 3.2 L Urine Color YELLOW Urine Appearance CLEAR Urine pH 5.0 Ur Specific [place] 1.019 Urine Protein 30 H Urine Glucose (UA) NEGATIVE Urine Ketones NEGATIVE Urine Blood NEGATIVE Urine Nitrite NEGATIVE Ur Leukocyte Esterase LARGE H Urine WBC (Auto) 6 Urine RBC (Auto) 3 02/10/19 02/10/19 17:05 19:34 WBC RBC Hgb Hct MCV MCH MCHC RDW Plt Count Seg Neutrophils % Lymphocytes % Monocytes % Eosinophils % Basophils % Absolute Neutrophils Absolute Lymphocytes Absolute Monocytes Absolute Eosinophils Absolute Basophils Sodium Potassium Chloride Carbon Dioxide Anion Gap BUN Creatinine Est GFR ( Amer) Est GFR (Non-Af Amer) Glucose Lactic Acid 1.5 Calcium Magnesium 0.8 L* Total Bilirubin AST ALT Alkaline Phosphatase Total Protein Albumin Urine Color Urine Appearance Urine pH Ur Specific [place] Urine Protein Urine Glucose (UA) Urine Ketones Urine Blood Urine Nitrite Ur Leukocyte Esterase Urine WBC (Auto) Urine RBC (Auto) 02/10/19 02/10/19 17:05 17:05 Creatine Kinase 23 L CK-MB (CK-2) 1.33 Troponin I 0.051 Impressions: Chest X-Ray 02/10/19 16:21 IMPRESSION: COPD. NO ACUTE RADIOGRAPHIC FINDING IN THE CHEST. Head CT 02/10/19 16:23 IMPRESSION: CHRONIC CHANGES OF ATROPHY AND MICROVASCULAR ISCHEMIA. NO ACUTE PROCESS. EVIDENCE OF ACUTE STROKE: NO. Assessment and Plan - Diagnosis (1) Hypokalemia Is this a current diagnosis for this admission?: Yes Plan: Likely secondary to chlorthalidone and inadequate magnesium intake. Chlorthalidone discontinued, magnesium and potassium ordered follow-up chemistry. (2) Hypomagnesemia Is this a current diagnosis for this admission?: Yes Plan: Please see #1 (3) Sepsis due to urinary tract infection Is this a current diagnosis for this admission?: Yes Plan: Antibiotics initiated, follow-up blood and urine culture (4) Ambulatory dysfunction Is this a current diagnosis for this admission?: Yes Plan: Follow-up physical therapy evaluation. - Time Time Spent with patient: 25-34 minutes - Inpatient Certification Medical Necessity: Need Close Monitoring Due to Risk of Patient Decompensation
[2019-02-11 05:36] LABS: ABSOLUTE BASOPHILS # (AUTO) 0.1 10^3/uL (0.0-0.2); ABSOLUTE EOSINOPHILS # (AUTO) 0.1 10^3/uL (0.0-0.6); ABSOLUTE LYMPHOCYTES (AUTO) 1.1 10^3/uL (0.5-4.7); ABSOLUTE MONOCYTES (AUTO) 0.6 10^3/uL (0.1-1.4); BASOPHILS % (AUTO) 0.8 % (0-2); EOSINOPHILS % (AUTO) 1.1 % (0-6); HEMATOCRIT 29.6 % (36.0-47.0); LYMPHOCYTES % (AUTO) 11.9 % (13-45); MEAN CORPUSCULAR HEMOGLOBIN 31.1 pg (27.0-33.4); MEAN CORPUSCULAR HGB CONC 33.9 g/dL (32.0-36.0); MEAN CORPUSCULAR VOLUME 92 fl (80-97); MONOCYTES % (AUTO) 6.8 % (3-13); PLATELET COUNT 225 10^3/uL (150-450); RED BLOOD COUNT 3.23 10^6/uL (3.72-5.28); RED CELL DISTRIBUTION WIDTH 15.4 % (11.5-14.0); SEGMENTED NEUTROPHILS % (AUTO) 79.4 % (42-78); TOTAL CELLS COUNTED % (AUTO) 100 %; WHITE BLOOD COUNT 8.8 10^3/uL (4.0-10.5)
[2019-02-11 05:51] LABS: ANION GAP 9 (5-19); BLOOD UREA NITROGEN 10 mg/dL (7-20); CALCIUM 7.4 mg/dL (8.4-10.2); CARBON DIOXIDE 18 mmol/L (22-30); CHLORIDE 112 mmol/L (98-107); GLUCOSE 122 mg/dL (75-110); SODIUM 139.4 mmol/L (137-145)
[2019-02-11 06:46] LABS: POTASSIUM 2.4 mmol/L (3.6-5.0)
[2019-02-11] MEDS ORDERED: POTASSIUM CHLORIDE 10 MEQ CAPSULE.ER PO ONE (07:00)
[2019-02-11] MEDS: DOCUSATE SODIUM 100 MG CAPSULE PO SCH (10:56)
[2019-02-11] MEDS: DILTIAZEM HCL 120 MG CAP.SR.24H PO SCH (10:59)
[2019-02-11] MEDS: MESALAMINE 400 MG CAPSULE.DR PO SCH ×2 (11:00→18:06)
[2019-02-11] MEDS: LISINOPRIL 10 MG TABLET PO SCH (11:00)
[2019-02-11] MEDS: POTASSI CL 20 MEQ/50 ML RIDER 20 MEQ/50 ML RTUPB IV SCH ×2 (13:43→16:10)
--- NOTE | 2019-02-11 14:30 | PDOC PROGRESS REPORT ---
Subjective Progress Note for:: 02/11/19 Subjective:: This is 78 years old female patient with past medical history of dementia, atrial fibrillation, COPD and Crohn's disease presented with chief complaint of vague symptoms including tingling sensation in her extremity and abdominal cramping and cramps in her legs. Her blood work shows profound hypomagnesemia and hypokalemia with potassium of 1.8. Patient also complaining of diarrhea which is triggered by antibiotic which is prescribed for her cellulitis involving her right big toe. Patient has also closely disease which has been in remission until she is started antibiotics which provokes her diarrhea. Her potassium is still low and her latest potassium is 2.4 and patient has been started on K rider. Her hypomagnesemia is corrected. Her acute kidney injury is improving manifested by a creatinine trending from 1.3- 1.03. Reason For Visit: UTI,TACHYCARDIA,HYPOKALEMIA Physical Exam Vital Signs: Temp Pulse Resp BP Pulse Ox 98 F 91 16 182/84 H 97 02/11/19 12:00 02/11/19 12:00 02/11/19 12:00 02/11/19 12:00 02/11/19 12:00 Intake & Output 02/10/19 02/11/19 02/12/19 06:59 06:59 06:59 Intake Total 1145 1000 Balance 1145 1000 Weight 62.4 kg General appearance: PRESENT: no acute distress, cooperative Head exam: PRESENT: atraumatic Eye exam: PRESENT: conjunctiva pink Neck exam: ABSENT: carotid bruit, JVD, lymphadenopathy, thyromegaly Cardiovascular exam: PRESENT: RRR. ABSENT: diastolic murmur, rubs, systolic murmur GI/Abdominal exam: PRESENT: normal bowel sounds, soft. ABSENT: distended, guarding, mass, organolmegaly, rebound, tenderness Neurological exam: PRESENT: alert, awake Results Laboratory Results: 02/11/19 04:39 02/11/19 04:39 02/10/19 02/10/19 02/10/19 17:05 17:05 17:05 WBC 13.9 H RBC 4.18 Hgb 12.6 Hct 38.5 MCV 92 MCH 30.1 MCHC 32.7 RDW 15.2 H Plt Count 314 Seg Neutrophils % 80.7 H Lymphocytes % 12.0 L Monocytes % 6.3 Eosinophils % 0.5 Basophils % 0.5 Absolute Neutrophils 11.2 H Absolute Lymphocytes 1.7 Absolute Monocytes 0.9 Absolute Eosinophils 0.1 Absolute Basophils 0.1 Sodium 140.5 Potassium 2.3 L* Chloride 106 Carbon Dioxide 21 L Anion Gap 14 BUN 12 Creatinine 1.25 Est GFR ( Amer) 50 L Est GFR (Non-Af Amer) 41 L Glucose 132 H Lactic Acid Calcium 8.2 L Magnesium Total Bilirubin 0.5 AST 12 L ALT 19 Alkaline Phosphatase 61 Total Protein 5.7 L Albumin 3.2 L Urine Color YELLOW Urine Appearance CLEAR Urine pH 5.0 Ur Specific [place] 1.019 Urine Protein 30 H Urine Glucose (UA) NEGATIVE Urine Ketones NEGATIVE Urine Blood NEGATIVE Urine Nitrite NEGATIVE Ur Leukocyte Esterase LARGE H Urine WBC (Auto) 6 Urine RBC (Auto) 3 02/10/19 02/10/19 02/11/19 17:05 19:34 04:39 WBC 8.8 RBC 3.23 L Hgb 10.0 L D Hct 29.6 L MCV 92 MCH 31.1 MCHC 33.9 RDW 15.4 H Plt Count 225 Seg Neutrophils % 79.4 H Lymphocytes % 11.9 L Monocytes % 6.8 Eosinophils % 1.1 Basophils % 0.8 Absolute Neutrophils 7.0 Absolute Lymphocytes 1.1 Absolute Monocytes 0.6 Absolute Eosinophils 0.1 Absolute Basophils 0.1 Sodium Potassium Chloride Carbon Dioxide Anion Gap BUN Creatinine Est GFR ( Amer) Est GFR (Non-Af Amer) Glucose Lactic Acid 1.5 Calcium Magnesium 0.8 L* Total Bilirubin AST ALT Alkaline Phosphatase Total Protein Albumin Urine Color Urine Appearance Urine pH Ur Specific [place] Urine Protein Urine Glucose (UA) Urine Ketones Urine Blood Urine Nitrite Ur Leukocyte Esterase Urine WBC (Auto) Urine RBC (Auto) 02/11/19 04:39 WBC RBC Hgb Hct MCV MCH MCHC RDW Plt Count Seg Neutrophils % Lymphocytes % Monocytes % Eosinophils % Basophils % Absolute Neutrophils Absolute Lymphocytes Absolute Monocytes Absolute Eosinophils Absolute Basophils Sodium 139.4 Potassium 2.4 L* Chloride 112 H Carbon Dioxide 18 L Anion Gap 9 BUN 10 Creatinine 1.03 Est GFR ( Amer) > 60 Est GFR (Non-Af Amer) 52 L Glucose 122 H Lactic Acid Calcium 7.4 L Magnesium 2.1 D Total Bilirubin AST ALT Alkaline Phosphatase Total Protein Albumin Urine Color Urine Appearance Urine pH Ur Specific [place] Urine Protein Urine Glucose (UA) Urine Ketones Urine Blood Urine Nitrite Ur Leukocyte Esterase Urine WBC (Auto) Urine RBC (Auto) 02/10/19 02/10/19 17:05 17:05 Creatine Kinase 23 L CK-MB (CK-2) 1.33 Troponin I 0.051 Impressions: Chest X-Ray 02/10/19 16:21 IMPRESSION: COPD. NO ACUTE RADIOGRAPHIC FINDING IN THE CHEST. Head CT 02/10/19 16:23 IMPRESSION: CHRONIC CHANGES OF ATROPHY AND MICROVASCULAR ISCHEMIA. NO ACUTE PROCESS. EVIDENCE OF ACUTE STROKE: NO. Assessment and Plan - Diagnosis (1) Hypokalemia Is this a current diagnosis for this admission?: Yes Plan: Despite replacement her potassium is still low. Patient has been started on K rider. We will check her potassium level in a.m. (2) Hypomagnesemia Is this a current diagnosis for this admission?: Yes Plan: Has improved (3) Acute kidney injury Is this a current diagnosis for this admission?: Yes Plan: Improving (4) Complicated UTI (urinary tract infection) Is this a current diagnosis for this admission?: Yes Plan: Continue current antibiotics (5) A-fib Is this a current diagnosis for this admission?: Yes Plan: Rate controlled (6) Crohns disease Is this a current diagnosis for this admission?: Yes Plan: Management per her primary nuclear physician. (7) COPD (chronic obstructive pulmonary disease) Is this a current diagnosis for this admission?: Yes Plan: Continue as needed bronchodilators. (8) Dementia Is this a current diagnosis for this admission?: Yes Plan: Stable and without behavioral disorder.
[2019-02-11] MEDS ORDERED: NICOTINE 7 MG/24 HR PATCH.TD24 TD PRN (16:08)
[2019-02-11] MEDS: LEVOFLOXACIN 750 MG/D5W RTU 750 MG/150 ML RTUPB IV SCH (21:49)
[2019-02-12 04:22] LABS: ANION GAP 8 (5-19); BLOOD UREA NITROGEN 5 mg/dL (7-20); CALCIUM 7.6 mg/dL (8.4-10.2); CARBON DIOXIDE 20 mmol/L (22-30); CHLORIDE 112 mmol/L (98-107); GLUCOSE 84 mg/dL (75-110); SODIUM 139.5 mmol/L (137-145)
[2019-02-12 04:31] LABS: POTASSIUM 2.5 mmol/L (3.6-5.0)
[2019-02-12] MEDS ORDERED: POTASSIUM CHLORIDE 10 MEQ CAPSULE.ER PO ONE (05:00)
[2019-02-12] MEDS: POTASSIUM CHLORIDE 20 MEQ/50 ML RTU IV SCH ×2 (06:05→07:42)
[2019-02-12] MEDS: HEPARIN SOD (PORCINE) 5,000 UNIT/ML 1 ML SYRINGE SUBCUT SCH ×3 (06:06→23:32)
[2019-02-12] MEDS: LISINOPRIL 10 MG TABLET PO SCH (10:32)
[2019-02-12] MEDS: MESALAMINE 400 MG CAPSULE.DR PO SCH ×2 (10:33→17:32)
[2019-02-12] MEDS: DILTIAZEM HCL 120 MG CAP.SR.24H PO SCH (10:33)
[2019-02-12] MEDS ORDERED: POTASSI CL 20 MEQ/50 ML RIDER 20 MEQ/50 ML RTUPB IV SCH (11:30)
[2019-02-12 13:08] LABS: PROTHROMBIN TIME 12.6 SEC (11.4-15.4)
[2019-02-12 13:09] LABS: PARTIAL THROMBOPLASTIN TIME 25.4 SEC (23.5-35.8)
--- NOTE | 2019-02-12 13:24 | PDOC PROGRESS REPORT ---
Subjective Progress Note for:: 02/12/19 Subjective:: I seen patient sitting by the bedside. I reviewed her labs still her potassium is not corrected. Yesterday her potassium was 2.4 today it is 2.5. Her magnesium also dropped. I will give her magnesium sulfate 3 g and K rider of 60. Reason For Visit: UTI,TACHYCARDIA,HYPOKALEMIA Physical Exam Vital Signs: Temp Pulse Resp BP Pulse Ox 97.9 F 106 H 18 143/82 H 99 02/12/19 12:00 02/12/19 12:00 02/12/19 12:00 02/12/19 12:00 02/12/19 12:00 Intake & Output 02/11/19 02/12/19 02/13/19 06:59 06:59 06:59 Intake Total 1145 2280 50 Balance 1145 2280 50 Weight 62.4 kg 69.2 kg 69.2 kg General appearance: PRESENT: no acute distress Eye exam: PRESENT: conjunctiva pink Mouth exam: PRESENT: moist Neck exam: ABSENT: carotid bruit, JVD, lymphadenopathy, thyromegaly Respiratory exam: PRESENT: clear to auscultation jasson. ABSENT: rales, rhonchi, wheezes Cardiovascular exam: PRESENT: irregular rhythm Neurological exam: PRESENT: alert, awake Results Laboratory Results: 02/11/19 04:39 02/12/19 03:56 02/12/19 02/12/19 03:56 03:56 Sodium 139.5 Potassium 2.5 L* Chloride 112 H Carbon Dioxide 20 L Anion Gap 8 BUN 5 L Creatinine 0.82 Est GFR ( Amer) > 60 Est GFR (Non-Af Amer) > 60 Glucose 84 Calcium 7.6 L Magnesium 1.5 L 02/10/19 17:05 Clean Catch Midstream Urine Culture - Final Pseudomonas Aeruginosa 02/10/19 02/10/19 17:05 17:05 Creatine Kinase 23 L CK-MB (CK-2) 1.33 Troponin I 0.051 Impressions: Chest X-Ray 02/10/19 16:21 IMPRESSION: COPD. NO ACUTE RADIOGRAPHIC FINDING IN THE CHEST. Head CT 02/10/19 16:23 IMPRESSION: CHRONIC CHANGES OF ATROPHY AND MICROVASCULAR ISCHEMIA. NO ACUTE PROCESS. EVIDENCE OF ACUTE STROKE: NO. Assessment and Plan - Diagnosis (1) Hypokalemia Is this a current diagnosis for this admission?: Yes Plan: Less corrected. I will give her further care either. (2) Hypomagnesemia Is this a current diagnosis for this admission?: Yes Plan: Today her magnesium is low (3) Acute kidney injury Is this a current diagnosis for this admission?: Yes Plan: Has improved (4) Complicated UTI (urinary tract infection) Is this a current diagnosis for this admission?: Yes Plan: Continue current antibiotics (5) A-fib Is this a current diagnosis for this admission?: Yes Plan: Rate controlled (6) Crohns disease Is this a current diagnosis for this admission?: Yes Plan: Management per her primary orthotic finish grinding technician. (7) COPD (chronic obstructive pulmonary disease) Is this a current diagnosis for this admission?: Yes Plan: Continue as needed bronchodilators. (8) Dementia Is this a current diagnosis for this admission?: Yes Plan: Stable and without behavioral disorder.
--- NOTE | 2019-02-12 14:45 | RADIOLOGY REPORT (SQ) ---
EXAM DESCRIPTION: PICC INSERTION; U/S GUIDE FOR VASCULAR ACCESS; FLUORO/CV PLACEMENT COMPLETED DATE/TIME: 02/12/2019 2:35 pm REASON FOR STUDY: POOR PERIPHERAL ACCESS; IV ACCESS COMPARISON: None. FLUOROSCOPY TIME: 1 minutes 51 seconds 2 images saved to PACS. TECHNIQUE: Fluoroscopic and ultrasound guided PICC placement. LIMITATIONS: None. PROCEDURE: After written consent and assessment were obtained, the patient was brought into the fluo roscopy room and placed supine on the table. Ultrasound evaluation of potential access sites were per formed. After successfully identifying a patent left basilic vein, the left arm was prepped and drape d in a sterile fashion along with the ultrasound probe. The entry site was anesthetized with 1% lidoc jacquelyn. A 21 gauge 7 cm needle was advanced through the skin and into the basilic vein under live ultra sound guidance. An ultrasound image was saved to PACS confirming access site. A .018 guide wire was then inserted through the needle and into the venous system. The needle was then removed and an 11 b lade scalpel was used to make a 1cm skin incision. A 5 fr peel-away sheath was advanced over the wir e and into the venous system. A measurement was then made using the existing wire and live fluoroscop ic guidance. The wire was then removed and trimmed. The PICC was advanced through the peel-away sheat h and into the venous system. The peel-away sheath was removed and the catheter was adhered to the pa tients arm with a stat lock. The catheter was then aspirated and flushed and a sterile bandage was pl aced over the access site. A fluoroscopic spot image was saved to PACS confirming the catheter tip w ithin the superior vena cava. IMPRESSION: SUCCESSFUL PLACEMENT OF A 5 FR DUAL LUMEN 42 CM PICC IN THE LEFT BASILIC VEIN. COMMENT: Patient medication list reviewed: Yes- Quality ID# 130:Eligible professional attests to doc umenting in the medical record they obtained, updated, or reviewed the patient's current medications. . Quality ID 145: Final reports for procedures using fluoroscopy that document radiation exposure margaret stefany, or exposure time and number of fluorographic images (if radiation exposure indices are not avail able) Quality ID #76: The patient was prepped and draped using maximum sterile barrier technique including cap, mask, sterile gown, sterile gloves, a large sterile sheet, hand hygiene, and 2% Chlorhexidine fo r cutaneous antisepsis. When ultrasound is used, sterile ultrasound techniques are followed requiring sterile gel and sterile probes. TECHNICAL DOCUMENTATION: JOB ID: [id number] [email or web address]- All Rights Reserved rev-04/03 Reading location - IP/workstation name: [email or web address]
[2019-02-12] MEDS ORDERED: DIPHENOXYLATE HCL/ATROP SULF 2.5-0.025 MG TABLET PO PRN (14:46)
[2019-02-12] MEDS ORDERED: PROCHLORPERAZINE MALEATE 10 MG TABLET PO PRN (14:47)
[2019-02-12] MEDS: MAGNESIUM SULFATE/D5W 1 GM/100 ML RTUPB IV SCH ×4 (14:51→19:03)
[2019-02-12] MEDS ORDERED: DIPHENOXYLATE HCL/ATROP SULF 2.5-0.025 MG TABLET PO ONE (15:15)
[2019-02-12] MEDS ORDERED: PROCHLORPERAZINE MALEATE 10 MG TABLET PO ONE (15:15)
[2019-02-12] MEDS: POTASSI CL 20 MEQ/50 ML RIDER 20 MEQ/50 ML RTUPB IV SCH ×3 (15:19→21:10)
[2019-02-12] MEDS ORDERED: NORMAL SALINE 10 ML SDV (AFTER EACH USE) IV PRN (15:30)
[2019-02-12] MEDS ORDERED: GLUCAGON,HUMAN RECOMB 1 MG INJ IM PRN (19:30)
[2019-02-12] MEDS ORDERED: DEXTROSE 40% GEL 15 GM TUBE PO PRN (19:30)
[2019-02-12] MEDS ORDERED: DEXTROSE 50%-WATER SYRINGE 25 GM/50 ML DOSE IV PRN (19:30)
[2019-02-12] MEDS ORDERED: DEXTROSE 40% GEL 15 GM TUBE X 2 PO PRN (19:30)
[2019-02-12] MEDS ORDERED: DEXTROSE 50%-WATER SYRINGE 12.5 GM/25 ML DOSE IV PRN (19:30)
[2019-02-12] MEDS: LEVOFLOXACIN 750 MG/D5W RTU 750 MG/150 ML RTUPB IV SCH (23:30)
[2019-02-12] MEDS: INSULIN LISPRO 100 UNIT/ML 3 ML VIAL SUBCUT SCH (23:31)
[2019-02-12] MEDS: NORMAL SALINE 10 ML SDV (SCHEDULED) IV SCH (23:33)
[2019-02-13] MEDS: HEPARIN SOD (PORCINE) 5,000 UNIT/ML 1 ML SYRINGE SUBCUT SCH ×3 (06:09→23:46)
[2019-02-13 06:17] LABS: HEMATOCRIT 27.6 % (36.0-47.0); MEAN CORPUSCULAR HEMOGLOBIN 30.1 pg (27.0-33.4); MEAN CORPUSCULAR HGB CONC 32.7 g/dL (32.0-36.0); MEAN CORPUSCULAR VOLUME 92 fl (80-97); PLATELET COUNT 193 10^3/uL (150-450); RED CELL DISTRIBUTION WIDTH 15.3 % (11.5-14.0); WHITE BLOOD COUNT 6.6 10^3/uL (4.0-10.5)
[2019-02-13 06:30] LABS: BLOOD UREA NITROGEN 2 mg/dL (7-20); CALCIUM 7.2 mg/dL (8.4-10.2); CHLORIDE 113 mmol/L (98-107); GLUCOSE 87 mg/dL (75-110); POTASSIUM 3.3 mmol/L (3.6-5.0)
[2019-02-13 06:35] LABS: CARBON DIOXIDE 21 mmol/L (22-30); SODIUM 137.8 mmol/L (137-145)
[2019-02-13 06:39] LABS: ANION GAP 4 (5-19)
[2019-02-13] MEDS ORDERED: POTASSIUM CHLORIDE 10 MEQ CAPSULE.ER PO ONE (10:30)
--- NOTE | 2019-02-13 11:05 | PDOC PROGRESS REPORT ---
Subjective Progress Note for:: 02/13/19 Subjective:: I seen patient resting in bed. Diarrhea is subsiding and her potassium is trending up, yesterday it was 2.4 today it is 3.3. I ordered Klor-Con 80 mg p.o. stat and BMP in a.m. Once her potassium corrected patient is potential discharge for tomorrow Reason For Visit: UTI,TACHYCARDIA,HYPOKALEMIA Physical Exam Vital Signs: Temp Pulse Resp BP Pulse Ox 98.1 F 100 22 H 124/59 L 99 02/13/19 07:53 02/13/19 07:53 02/13/19 07:53 02/13/19 07:53 02/13/19 07:53 Intake & Output 02/12/19 02/13/19 02/14/19 06:59 06:59 06:59 Intake Total 2280 650 Balance 2280 650 Weight 69.2 kg 57.9 kg General appearance: PRESENT: no acute distress Eye exam: PRESENT: conjunctiva pink Respiratory exam: PRESENT: clear to auscultation jasson. ABSENT: rales, rhonchi, wheezes Cardiovascular exam: PRESENT: irregular rhythm Results Laboratory Results: 02/13/19 06:10 02/13/19 06:10 02/13/19 02/13/19 06:10 06:10 WBC 6.6 RBC 3.00 L Hgb 9.0 L Hct 27.6 L MCV 92 MCH 30.1 MCHC 32.7 RDW 15.3 H Plt Count 193 Sodium 137.8 Potassium 3.3 L Chloride 113 H Carbon Dioxide 21 L Anion Gap 4 L BUN 2 L Creatinine 0.63 Est GFR ( Amer) > 60 Est GFR (Non-Af Amer) > 60 Glucose 87 Calcium 7.2 L 02/10/19 17:05 Clean Catch Midstream Urine Culture - Final Pseudomonas Aeruginosa 02/10/19 02/10/19 17:05 17:05 Creatine Kinase 23 L CK-MB (CK-2) 1.33 Troponin I 0.051 Impressions: Chest X-Ray 02/10/19 16:21 IMPRESSION: COPD. NO ACUTE RADIOGRAPHIC FINDING IN THE CHEST. Head CT 02/10/19 16:23 IMPRESSION: CHRONIC CHANGES OF ATROPHY AND MICROVASCULAR ISCHEMIA. NO ACUTE PROCESS. EVIDENCE OF ACUTE STROKE: NO. Guidance Fluoroscopy 02/12/19 00:00 IMPRESSION: SUCCESSFUL PLACEMENT OF A 5 FR DUAL LUMEN 42 CM PICC IN THE LEFT BASILIC VEIN. Interventional Vascular Procedure 02/12/19 00:00 IMPRESSION: SUCCESSFUL PLACEMENT OF A 5 FR DUAL LUMEN 42 CM PICC IN THE LEFT BASILIC VEIN. PICC Line Insertion 02/12/19 00:00 IMPRESSION: SUCCESSFUL PLACEMENT OF A 5 FR DUAL LUMEN 42 CM PICC IN THE LEFT BASILIC VEIN. Assessment and Plan - Diagnosis (1) Hypokalemia Is this a current diagnosis for this admission?: Yes Plan: Improving (2) Hypomagnesemia Is this a current diagnosis for this admission?: Yes Plan: Today her magnesium is low (3) Acute kidney injury Is this a current diagnosis for this admission?: Yes Plan: Has improved (4) Complicated UTI (urinary tract infection) Is this a current diagnosis for this admission?: Yes Plan: Continue current antibiotics (5) A-fib Is this a current diagnosis for this admission?: Yes Plan: Rate controlled (6) Crohns disease Is this a current diagnosis for this admission?: Yes Plan: Management per her primary vocational nursing instructor. (7) COPD (chronic obstructive pulmonary disease) Is this a current diagnosis for this admission?: Yes Plan: Continue as needed bronchodilators. (8) Dementia Is this a current diagnosis for this admission?: Yes Plan: Stable and without behavioral disorder.
[2019-02-13] MEDS: METFORMIN HCL 500 MG TABLET PO SCH ×2 (11:11→17:20)
[2019-02-13] MEDS: DILTIAZEM HCL 120 MG CAP.SR.24H PO SCH (11:11)
[2019-02-13] MEDS: LISINOPRIL 10 MG TABLET PO SCH (11:11)
[2019-02-13] MEDS: MESALAMINE 400 MG CAPSULE.DR PO SCH (11:12)
[2019-02-13] MEDS: INSULIN LISPRO 100 UNIT/ML 3 ML VIAL SUBCUT SCH ×4 (11:13→23:46)
[2019-02-13] MEDS: DULOXETINE HCL 30 MG CAPSULE.DR PO SCH (11:13)
[2019-02-13] MEDS: NORMAL SALINE 10 ML SDV (SCHEDULED) IV SCH ×2 (11:14→23:51)
[2019-02-13] MEDS ORDERED: ALPRAZOLAM 0.25 MG TABLET PO ONE (12:00)
[2019-02-13] MEDS: NORMAL SALINE 1000 ML 1,000 ML IV PRN ×2 (12:39→23:50)
[2019-02-13] MEDS: NYSTATIN TOPICAL POWDER 15 GM TP SCH ×2 (17:21→23:49)
[2019-02-13] MEDS: LEVOFLOXACIN 750 MG/D5W RTU 750 MG/150 ML RTUPB IV SCH (23:47)
[2019-02-14] MEDS: HEPARIN SOD (PORCINE) 5,000 UNIT/ML 1 ML SYRINGE SUBCUT SCH ×2 (05:53→13:36)
[2019-02-14 07:30] LABS: BLOOD UREA NITROGEN 4 mg/dL (7-20); CALCIUM 7.9 mg/dL (8.4-10.2); GLUCOSE 123 mg/dL (75-110); POTASSIUM 3.7 mmol/L (3.6-5.0)
[2019-02-14 07:35] LABS: CARBON DIOXIDE 18 mmol/L (22-30); CHLORIDE 118 mmol/L (98-107); SODIUM 137.6 mmol/L (137-145)
[2019-02-14 07:40] LABS: ANION GAP 2 (5-19)
[2019-02-14] MEDS: INSULIN LISPRO 100 UNIT/ML 3 ML VIAL SUBCUT SCH ×3 (08:42→16:07)
--- NOTE | 2019-02-14 09:42 | PDOC DISCHARGE SUMMARY ---
General - Admit/Disc Date/PCP Admission Date/Primary Care Provider: 02/10/19 21:15 JEANIE CANADA PA-C Discharge Date: 02/14/19 - Discharge Diagnosis (1) Hypokalemia Is this a current diagnosis for this admission?: Yes (2) Hypomagnesemia Is this a current diagnosis for this admission?: Yes (3) Acute kidney injury Is this a current diagnosis for this admission?: Yes (4) Complicated UTI (urinary tract infection) Is this a current diagnosis for this admission?: Yes (5) A-fib Is this a current diagnosis for this admission?: Yes (6) Crohns disease Is this a current diagnosis for this admission?: Yes (7) COPD (chronic obstructive pulmonary disease) Is this a current diagnosis for this admission?: Yes (8) Dementia Is this a current diagnosis for this admission?: Yes - Additional Information Resuscitation Status: Full Code Home Medications: Diltiazem HCl [Dilt-Xr] 120 mg PO DAILY 12/29/18 Ipratropium/Albuterol Sulfate [Duoneb 3 ml Ampul] 3 ml NEB RTQIDP PRN 12/29/18 Lisinopril [Prinivil 40 mg Tablet] 40 mg PO DAILY 12/29/18 Naproxen Sodium [Aleve] 440 mg PO DAILY 12/29/18 Naproxen Sodium [Aleve] 660 mg PO QHS 12/29/18 Docusate Sodium [Colace 100 mg Capsule] 100 mg PO DAILY #60 capsule 01/01/19 Albuterol Sulfate [Proventil Hfa] 6.7 gm IH Q4HP PRN 02/11/19 Amoxicillin/Potassium Clav [Augmentin 500-125 Tablet] 1 each PO BID 02/11/19 Cholecalciferol (Vitamin D3) [Vitamin D] 50,000 unit PO Q7D 02/11/19 Duloxetine HCl [Cymbalta] 30 mg PO DAILY 02/11/19 Mesalamine [Lialda] 1.2 gm PO BID 02/11/19 Sulfasalazine 500 mg PO BID 02/11/19 Tiotropium Crawford [Spiriva Handihaler 5 Cap/Kit (18 Mcg/Cap)] 1 cap IH DAILY 02/11/19 Glimepiride [Amaryl] 2 mg PO DAILY 02/12/19 Metformin HCl [Glucophage 500 mg Tablet] 500 mg PO BID 02/12/19 History of Present Illness History of Present Illness: JOSE DANIEL LONG is a 78 year old female with a past medical history of dementia, A. fib with RVR, COPD, urinary tract infection and generalized debility. She presents with vague complaints of numbness tingling of the upper extremities. Labs reveal profound hypomagnesemia anemia and hypokalemia of 1.8 and 2.3 respectively. Patient was recently started on chlorthalidone. She is also found to have pyuria. She started on electrolyte repletion and empiric antibiotics then referred to the hospitalist for admission. Denies nausea vomiting or fever. Hospital Course Hospital Course: This is 78 years old female patient with past medical history of dementia, atrial fibrillation, COPD and Crohn's disease presented with chief complaint of vague symptoms including tingling sensation in her extremity and abdominal cramping and cramps in her legs. Her blood work shows profound hypomagnesemia and hypokalemia with potassium of 1.8. Patient also complaining of diarrhea which is triggered by antibiotic which is prescribed for her cellulitis involving her right big toe. Patient has also Crohn disease which has been in remission until she is started antibiotics which provokes her diarrhea. Her potassium at admission was 2.3 and after repeated K rider and p.o. Klor-Con it is corrected to 3.7. Her diarrhea has subsided. Her magnesium today it is 1.5 so I would give her 3 g of magnesium sulfate and will send her home. Her vital signs are within normal limits. Patient is stable enough to go home and follow-up with her primary care physician. Physical Exam Vital Signs: Temp Pulse Resp BP Pulse Ox 97.8 F 111 H 15 128/61 H 93 02/14/19 08:19 02/14/19 08:19 02/14/19 08:19 02/14/19 08:19 02/14/19 08:19 Intake & Output 02/13/19 02/14/19 02/15/19 06:59 06:59 06:59 Intake Total 800 1857 Balance 800 1857 Weight 57.9 kg 65.3 kg General appearance: PRESENT: no acute distress Head exam: PRESENT: atraumatic Eye exam: PRESENT: conjunctiva pink Neck exam: ABSENT: carotid bruit, JVD, lymphadenopathy, thyromegaly Respiratory exam: PRESENT: clear to auscultation jasson. ABSENT: rales, rhonchi, wheezes Neurological exam: PRESENT: alert, awake Results Laboratory Results: 02/13/19 06:10 02/14/19 07:00 02/14/19 07:00 Sodium 137.6 Potassium 3.7 Chloride 118 H Carbon Dioxide 18 L Anion Gap 2 L BUN 4 L Creatinine 0.72 Est GFR ( Amer) > 60 Est GFR (Non-Af Amer) > 60 Glucose 123 H Calcium 7.9 L Magnesium 1.5 L 02/10/19 02/10/19 17:05 17:05 Creatine Kinase 23 L CK-MB (CK-2) 1.33 Troponin I 0.051 Impressions: Chest X-Ray 02/10/19 16:21 IMPRESSION: COPD. NO ACUTE RADIOGRAPHIC FINDING IN THE CHEST. Head CT 02/10/19 16:23 IMPRESSION: CHRONIC CHANGES OF ATROPHY AND MICROVASCULAR ISCHEMIA. NO ACUTE PROCESS. EVIDENCE OF ACUTE STROKE: NO. Guidance Fluoroscopy 02/12/19 00:00 IMPRESSION: SUCCESSFUL PLACEMENT OF A 5 FR DUAL LUMEN 42 CM PICC IN THE LEFT BASILIC VEIN. Interventional Vascular Procedure 02/12/19 00:00 IMPRESSION: SUCCESSFUL PLACEMENT OF A 5 FR DUAL LUMEN 42 CM PICC IN THE LEFT BASILIC VEIN. PICC Line Insertion 02/12/19 00:00 IMPRESSION: SUCCESSFUL PLACEMENT OF A 5 FR DUAL LUMEN 42 CM PICC IN THE LEFT BASILIC VEIN. Qualifiers - * PATIENT BEING DISCHARGED WITH ANY OF THE FOLLOWING DIAGNOSIS: No
[2019-02-14] MEDS: METFORMIN HCL 500 MG TABLET PO SCH (10:25)
[2019-02-14] MEDS: DULOXETINE HCL 30 MG CAPSULE.DR PO SCH (10:25)
[2019-02-14] MEDS: MAGNESIUM SULFATE/D5W 1 GM/100 ML RTUPB IV SCH ×3 (10:25→13:35)
[2019-02-14] MEDS: DILTIAZEM HCL 120 MG CAP.SR.24H PO SCH (10:25)
[2019-02-14] MEDS: NYSTATIN TOPICAL POWDER 15 GM TP SCH (10:26)
[2019-02-14] MEDS: NORMAL SALINE 10 ML SDV (SCHEDULED) IV SCH (10:26)
[2019-02-14] MEDS: LISINOPRIL 10 MG TABLET PO SCH (10:27)
[2019-02-14] MEDS ORDERED: LORAZEPAM INJ 2 MG/1 ML VIAL IV ONE (12:00)
[2019-02-14] MEDS ORDERED: DILTIAZEM HCL 60 MG TABLET PO ONE (13:00)
[2019-02-14 16:15] VITALS: BP 114/66
== END 2019-02-14 16:45 | disposition home health service (06) | DRG 641 ==
LOC: ER 15:24 → EH 21:15 → 5 23:41
PROVIDERS: ADMIT Internal Medicine; ATTEND Internal Medicine
PROC: 02HV33Z Insertion of Infusion Device into Superior Vena Cava, Percutaneous Approach (ICD-10-PCS; principal; 2019-02-12)
PROC: B548ZZA Ultrasonography of Superior Vena Cava, Guidance (ICD-10-PCS; 2019-02-12)
PROC: B518ZZA Fluoroscopy of Superior Vena Cava, Guidance (ICD-10-PCS; 2019-02-12)
DX: E87.6 Hypokalemia (principal); K50.90 Crohn's disease, unspecified, without complications; N39.0 Urinary tract infection, site not specified; N17.9 Acute kidney failure, unspecified; I48.2 Chronic atrial fibrillation; J44.9 Chronic obstructive pulmonary disease, unspecified; D64.9 Anemia, unspecified; E83.42 Hypomagnesemia; I10 Essential (primary) hypertension; F03.90 Unspecified dementia, unspecified severity, without behavioral disturbance, psychotic disturbance, mood disturbance, and anxiety; E11.9 Type 2 diabetes mellitus without complications; F32.9 Major depressive disorder, single episode, unspecified; F17.200 Nicotine dependence, unspecified, uncomplicated; Z82.49 Family history of ischemic heart disease and other diseases of the circulatory system; Z79.4 Long term (current) use of insulin; Z79.52 Long term (current) use of systemic steroids; Z79.899 Other long term (current) drug therapy; B96.5 Pseudomonas (aeruginosa) (mallei) (pseudomallei) as the cause of diseases classified elsewhere
CPT/HCPCS: 36415; 36569; 70450; 71045; 76937; 77001; 80048; 80053; 81001; 82550; 82553; 82962; 83605; 83735; 84484; 85025; 85027; 85610; 85730; 87040; 87086; 87088; 87186; 87493; 93005; 93010; 96365; 96366; 99285; J1642; J1644; J1815; J1956; J2060; J3475; J3480; J3490; J7030; J7040; S0183

== ENCOUNTER → 2019-03-17 | Outpatient (CLI) | payer MEDICARE, MEDICAID ==
[2019-03-17 15:44] LABS: HEMATOCRIT 32.1 % (36.0-47.0); HEMOGLOBIN 10.1 g/dL (12.0-15.5); MEAN CORPUSCULAR HGB CONC 31.6 g/dL (32.0-36.0); MEAN CORPUSCULAR VOLUME 89 fl (80-97); PLATELET COUNT 392 10^3/uL (150-450); RED BLOOD COUNT 3.62 10^6/uL (3.72-5.28); RED CELL DISTRIBUTION WIDTH 14.8 % (11.5-14.0); WHITE BLOOD COUNT 14.3 10^3/uL (4.0-10.5)
[2019-03-17 16:13] LABS: ALANINE AMINOTRANSFERASE 13 U/L (9-52); ALBUMIN 2.7 g/dL (3.5-5.0); ALKALINE PHOSPHATASE 73 U/L (38-126); ANION GAP 10 (5-19); ASPARTATE AMINO TRANSFERASE 6 U/L (14-36); BILIRUBIN,DIRECT 0.4 mg/dL (0.0-0.4); BILIRUBIN,TOTAL 0.4 mg/dL (0.2-1.3); BLOOD UREA NITROGEN 24 mg/dL (7-20); C-REACTIVE PROTEIN 55.5 mg/L (<10.0); CARBON DIOXIDE 24 mmol/L (22-30); CHLORIDE 106 mmol/L (98-107); GLUCOSE 197 mg/dL (75-110); POTASSIUM 4.3 mmol/L (3.6-5.0); SODIUM 139.9 mmol/L (137-145); TOTAL PROTEIN 5.4 g/dL (6.3-8.2)
[2019-03-17 16:18] LABS: ABSOLUTE LYMPHOCYTES# (MANUAL) 0.4 10^3/uL (0.5-4.7); ABSOLUTE MONOCYTES # (MANUAL) 0.9 10^3/uL (0.1-1.4); ABSOLUTE NEUTROPHILS# (MANUAL) 12.7 10^3/uL (1.7-8.2); ANISOCYTOSIS SLIGHT; BASOPHILS % (MANUAL) 1 % (0-2); EOSINOPHILS % (MANUAL) 1 % (0-6); LYMPHOCYTES % (MANUAL) 3 % (13-45); METAMYELOCYTES % (MANUAL) 1 % (0); MONOCYTES % (MANUAL) 6 % (3-13); SEGMENTED NEUTROPHILS % (MAN) 88 % (42-78); TOTAL CELLS COUNTED 100
[2019-03-17 16:19] LABS: PLATELET COMMENT ADEQUATE; PLATELET GIANT PRESENT
[2019-03-17 16:20] LABS: ERYTHROCYTE SEDIMENTATION RATE 60 mm/hr (0-30)
== END ==
LOC: WC 15:12
PROVIDERS: ATTEND Preventive Medicine Undersea and Hyperbaric Medicine
DX: L97.512 Non-pressure chronic ulcer of other part of right foot with fat layer exposed (principal); L97.522 Non-pressure chronic ulcer of other part of left foot with fat layer exposed; E11.621 Type 2 diabetes mellitus with foot ulcer
CPT/HCPCS: 36415; 80053; 83036; 85025; 85652; 86140

== ENCOUNTER → 2019-03-17 | Outpatient (CLI) | payer MEDICARE, MEDICAID ==
--- NOTE | 2019-03-17 17:04 | RADIOLOGY REPORT (SQ) ---
EXAM DESCRIPTION: FOOT LEFT COMPLETE; FOOT RIGHT COMPLETE COMPLETED DATE/TIME: 03/17/2019 4:51 pm REASON FOR STUDY: L97.512; L97.512 NON-PRS CHRONIC ULCER OTH PRT RIGHT FOOT W FAT LAYER EXPOSED COMPARISON: None. FINDINGS: Three views right foot: Limiting osteopenia. No displaced fracture. No subluxation or d islocation. No gross bone resorption. No radiopaque foreign body. Soft tissue swelling over the do rsal foot. Three views left foot: Limiting osteopenia. No displaced fracture. No subluxation or dislocation. Artifact along the great toe looks external. No clear bone resorption here. No radiopaque foreign body otherwise. TECHNICAL DOCUMENTATION: JOB ID: [id number] Reading location - IP/workstation name: [email or web address]
--- NOTE | 2019-03-17 17:04 | RADIOLOGY REPORT (SQ) ---
EXAM DESCRIPTION: FOOT LEFT COMPLETE; FOOT RIGHT COMPLETE COMPLETED DATE/TIME: 03/17/2019 4:51 pm REASON FOR STUDY: L97.512; L97.512 NON-PRS CHRONIC ULCER OTH PRT RIGHT FOOT W FAT LAYER EXPOSED COMPARISON: None. FINDINGS: Three views right foot: Limiting osteopenia. No displaced fracture. No subluxation or d islocation. No gross bone resorption. No radiopaque foreign body. Soft tissue swelling over the do rsal foot. Three views left foot: Limiting osteopenia. No displaced fracture. No subluxation or dislocation. Artifact along the great toe looks external. No clear bone resorption here. No radiopaque foreign body otherwise. TECHNICAL DOCUMENTATION: JOB ID: [id number] Reading location - IP/workstation name: [email or web address]
--- NOTE | 2019-03-18 08:51 | XCELERA REPORT ---
[address] [address] Lower Extremity Arterial Evaluation Name: JOSE DANIEL LONG Age: 78 yrs Gender: Female : 1940 Patient Status: Outpatient Patient Location: Study Date: 03/17/2019 03:39 PM Procedure: A color flow and duplex scan of the lower extremity arteries was performed bilaterally with velocity and waveform anaylsis. Ankle brachial indicies performed. Reason For Study: RT FOOT ULCER Ordering Physician: BEN CALDERÓN Performed By: Primo Groves Measurements and Calculations Right Left [employer] PSV 130.4 174.0 cm/sec Prox PFA PSV -81.5 -179.7cm/sec Prox SFA PSV 87.7 94.3 cm/sec Mid SFA PSV -110.3 -128.9cm/sec Dist SFA PSV -176.2 -179.7cm/sec Prox Pop A PSV 49.8 54.5 cm/sec Dist ROSA PSV 54.5 45.0 cm/sec Dist AWNINGS MECHANIC PSV 38.5 -51.0 cm/sec Devan Pedis PSV -49.6 -21.8 cm/sec Right Side Arterial Evaluation Normal velocity and triphasic waveforms noted from the Common Femoral artery to the infrageniculate vessels . Ankle Brachial index 0.89. Left Side Arterial Evaluation Normal velocity and triphasic waveforms noted from the Common Femoral artery to the infrageniculate vessels . Ankle Brachial index 1.00. Interpretation Summary No hemodynamically significant lesions in the bilateral lower extremities, on duplex imaging, at rest. THANIA's are normal, suggesting normal arterial supply. : BEN CALDERÓN > Vinh López
== END ==
LOC: SP 14:45
PROVIDERS: ATTEND Preventive Medicine Undersea and Hyperbaric Medicine
DX: L97.512 Non-pressure chronic ulcer of other part of right foot with fat layer exposed (principal); L97.522 Non-pressure chronic ulcer of other part of left foot with fat layer exposed; E11.621 Type 2 diabetes mellitus with foot ulcer
CPT/HCPCS: 93922; 93925

== ENCOUNTER 2019-04-18 16:08 | Emergency (ER) | payer MEDICARE, MEDICAID ==
[2019-04-18] MEDS ORDERED: ONDANSETRON 4 MG TAB.RAPDIS PO ONE (17:08)
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
[2019-04-18 19:04] LABS: ABSOLUTE BASOPHILS # (AUTO) 0.1 10^3/uL (0.0-0.2); ABSOLUTE EOSINOPHILS # (AUTO) 0.1 10^3/uL (0.0-0.6); ABSOLUTE LYMPHOCYTES (AUTO) 0.7 10^3/uL (0.5-4.7); ABSOLUTE MONOCYTES (AUTO) 0.3 10^3/uL (0.1-1.4); BASOPHILS % (AUTO) 0.6 % (0-2); EOSINOPHILS % (AUTO) 0.6 % (0-6); HEMATOCRIT 33.4 % (36.0-47.0); HEMOGLOBIN 10.7 g/dL (12.0-15.5); LYMPHOCYTES % (AUTO) 6.2 % (13-45); MEAN CORPUSCULAR HEMOGLOBIN 27.3 pg (27.0-33.4); MEAN CORPUSCULAR HGB CONC 31.9 g/dL (32.0-36.0); MEAN CORPUSCULAR VOLUME 86 fl (80-97); PLATELET COUNT 332 10^3/uL (150-450); RED CELL DISTRIBUTION WIDTH 15.9 % (11.5-14.0); SEGMENTED NEUTROPHILS % (AUTO) 89.6 % (42-78); TOTAL CELLS COUNTED % (AUTO) 100 %; WHITE BLOOD COUNT 11.1 10^3/uL (4.0-10.5)
[2019-04-18 19:10] LABS: INTERNATIONAL RATION (INR) 0.88; PROTHROMBIN TIME 12.4 SEC (11.4-15.4)
--- NOTE | 2019-04-18 19:21 | RADIOLOGY REPORT (SQ) ---
EXAM DESCRIPTION: CHEST SINGLE VIEW COMPLETED DATE/TIME: 04/18/2019 6:37 pm REASON FOR STUDY: AMS COMPARISON: Chest x-ray 02/10/2019. CT chest 12/29/2018. EXAM PARAMETERS: NUMBER OF VIEWS: One view. TECHNIQUE: Single frontal radiographic view of the chest acquired. RADIATION DOSE: NA LIMITATIONS: None. FINDINGS: LUNGS AND PLEURA: No consolidation, pneumothorax or pleural effusion. There is an 8 mm no dule at the right lung base. Hyperlucent lungs are suggestive of emphysema. MEDIASTINUM AND HILAR STRUCTURES: No masses. Contour normal. HEART AND VASCULAR STRUCTURES: Heart normal in size. Normal vasculature. BONES: No acute findings. HARDWARE: None in the chest. IMPRESSION: Emphysema. 8 mm nodule at the right lung base, may correspond to previously described p ulmonary nodules on CT chest 12/29/2018. Please followup as per CT chest recommendation. TECHNICAL DOCUMENTATION: JOB ID: [id number] [id number] 2010 [employer]- All Rights Reserved Reading location - IP/workstation name: [email or web address]
--- NOTE | 2019-04-18 19:24 | RADIOLOGY REPORT (SQ) ---
EXAM DESCRIPTION: CT HEAD WITHOUT COMPLETED DATE/TIME: 04/18/2019 7:04 pm REASON FOR STUDY: AMS COMPARISON: Noncontrast CT head 02/10/2019. TECHNIQUE: Axial images acquired through the brain without intravenous contrast. Images reviewed wi th bone, brain and subdural windows. Images stored on PACS. All CT scanners at this facility use dose modulation, iterative reconstruction, and/or weight based d osing when appropriate to reduce radiation dose to as low as reasonably achievable (ALARA). [facility]: Dose Right [facility]: CareDose [facility]: Dose Right [facility]: Teradose 4D [facility]: Smart [place]ia RADIATION DOSE: CT Rad equipment meets quality standard of care and radiation dose reduction techniq ues were employed. CTDIvol: 53.2 mGy. DLP: 964 mGy-cm.mGy. LIMITATIONS: None. FINDINGS: VENTRICLES: Prominent. CEREBRUM: No mass effect. No hemorrhage. No midline shift. Areas of low density in the white matte r most likely due to chronic micro-vascular ischemic change. No evidence for acute territorial infar ction. CEREBELLUM: No hemorrhage. No alteration of density. No evidence for acute infarction. EXTRAAXIAL SPACES: Age-related involutional change. No fluid collections. ORBITS AND GLOBE: Symmetrical contour of the globes. CALVARIUM: No depressed fracture. PARANASAL SINUSES: No air-fluid level. SOFT TISSUES: No hematoma. IMPRESSION: No acute intracranial hemorrhage or acute territorial infarct. Chronic changes of atrop hy and microvascular ischemia. EVIDENCE OF ACUTE STROKE: NO. TECHNICAL DOCUMENTATION: JOB ID: [id number] [facility] Quality ID # [id number]: Final reports with documentation of one or more dose reduction techniques (e.g., Au tomated exposure control, adjustment of the mA and/or kV according to patient size, use of iterative reconstruction technique) 2010 [employer]- All Rights Reserved Reading location - IP/workstation name: [email or web address]
[2019-04-18 19:25] LABS: ALANINE AMINOTRANSFERASE 14 U/L (9-52); ALKALINE PHOSPHATASE 79 U/L (38-126); ANION GAP 8 (5-19); ASPARTATE AMINO TRANSFERASE 11 U/L (14-36); BILIRUBIN,DIRECT 0.4 mg/dL (0.0-0.4); BILIRUBIN,TOTAL 0.4 mg/dL (0.2-1.3); BLOOD UREA NITROGEN 18 mg/dL (7-20); CALCIUM 8.9 mg/dL (8.4-10.2); CARBON DIOXIDE 27 mmol/L (22-30); CHLORIDE 105 mmol/L (98-107); GLUCOSE 165 mg/dL (75-110); SODIUM 139.5 mmol/L (137-145); TOTAL PROTEIN 5.8 g/dL (6.3-8.2)
[2019-04-18 21:07] LABS: APPEARANCE,URINE CLEAR; BILIRUBIN,URINE NEGATIVE (NEGATIVE); COLOR,URINE YELLOW; GLUCOSE, URINE 50 mg/dL (NEGATIVE); KETONES,URINE NEGATIVE (NEGATIVE); LEUKOCYTE ESTERASE,URINE NEGATIVE (NEGATIVE); NITRITE,URINE NEGATIVE (NEGATIVE); PROTEIN,URINE NEGATIVE (NEGATIVE); URINE SPECIFIC GRAVITY 1.015; UROBILINOGEN,URINE NEGATIVE mg/dL (<2.0)
[2019-04-18] MEDS ORDERED: DILTIAZEM HCL 120 MG CAP.SR.24H PO ONE (22:45)
--- NOTE | 2019-04-18 23:33 | EKG REPORT ---
SEVERITY:- BORDERLINE ECG - SINUS TACHYCARDIA WITH IRREGULAR RATE [id number] : Confirmed by: Kisha Parra MD 18-Apr-2019 23:32:40
--- NOTE | 2019-04-19 14:18 | PSYCHOLOGICAL NOTE ---
Psych Note - Psych Note Date seen by psych provider: 04/19/19 Psych Note: Diagnosis: Increased aggression Dementia by History Uncomplicated Bereavement Medication recommendations made by the psychiatric medical provider, Dr. Chip MD., includes: Discontinue Cymbalta 60MG daily Discontinue Aricept 5MG at night Add Depakote DR 250MG twice a day for mood stabilization Add Buspar 5MG twice a day for anxiety/calming effect/depression/sleep Add Risperdal 0.25MG at 0400 and 2000 for sun downing Impression/Plan: Patient is cleared from acute psychiatric services. She had increased aggression which is felt to be due to history of dementia and grief (son 04/15/19). Medication adjustments took place to address mood while being mindful of neurodegenerative process (dementia hx, prescribed Aricept and Head CT dated 04/18/19 has neurodegenerative language). Dementia is a medical condition. Recommendation for neurology follow up and at the very least Primary Care. Provided your family with the outpatient MH resource sheet for list of local psychiatric providers and highlighted IFS MCM. Consulted with Dr. Javed regarding the management and care of patient. ED Physician in agreement with recommendations.
[2019-04-19 14:40] VITALS: BP 129/95
== END 2019-04-19 14:45 | disposition home or self-care (01) ==
LOC: ER 16:08
DX: F03.91 Unspecified dementia, unspecified severity, with behavioral disturbance (principal); M25.511 Pain in right shoulder; R32 Unspecified urinary incontinence; F17.200 Nicotine dependence, unspecified, uncomplicated; I10 Essential (primary) hypertension; J43.9 Emphysema, unspecified; E11.9 Type 2 diabetes mellitus without complications; D72.829 Elevated white blood cell count, unspecified
CPT/HCPCS: 93005; 99285; 36415; 87040; 87086; 83735; 85025; 85610; 80053; 81001; 84484; 71045; 70450; 93010; A9270 ×2; S0119

== ENCOUNTER 2019-04-26 10:42 | Observation (INO) | payer MEDICARE, MEDICAID ==
[2019-04-26] MEDS ORDERED: DILTIAZEM HCL INJ 25 MG/5 ML VIAL IV ONE ×2 (11:07→12:16)
[2019-04-26] MEDS ORDERED: NORMAL SALINE 1000 ML 1,000 ML IV ONE (11:07)
[2019-04-26 11:30] LABS: HEMATOCRIT 35.9 % (36.0-47.0); HEMOGLOBIN 11.4 g/dL (12.0-15.5); MEAN CORPUSCULAR HEMOGLOBIN 27.4 pg (27.0-33.4); MEAN CORPUSCULAR HGB CONC 31.7 g/dL (32.0-36.0); MEAN CORPUSCULAR VOLUME 87 fl (80-97); PLATELET COUNT 356 10^3/uL (150-450); RED BLOOD COUNT 4.15 10^6/uL (3.72-5.28); RED CELL DISTRIBUTION WIDTH 16.2 % (11.5-14.0)
[2019-04-26] MEDS ORDERED: DILTIAZEM HCL/D5W 125 MG/125 ML RTUINJ IV ONE (11:32)
[2019-04-26] MEDS ORDERED: DILTIAZEM HCL/D5W 125 MG/125 ML RTUINJ IV PRN (11:39)
--- NOTE | 2019-04-26 11:39 | ER Document Report ---
ED General - General Chief Complaint: Low Blood Pressure Stated Complaint: BLOOD PRESSURE ISSUE Time Seen by Provider: 04/26/19 11:07 Primary Care Provider: JEANIE CANADA PA-C [Primary Care Provider] - Follow up as needed Notes: 78-year-old female patient emergency department chief complaint of heart racing, low blood pressure. Patient taken care of by her family members. They do heart rate and blood pressure measurements on here. They noted that patient's heart rate was elevated today. History of atrial fibrillation. Denies any chest pain. Does have shortness of breath. Weakness. TRAVEL OUTSIDE OF THE [place] IN LAST 30 DAYS: No - Related Data Allergies/Adverse Reactions: No Known Allergies Allergy (Verified 04/26/19 10:46) Past Medical History - General Information source: Patient, Relative - Social History Smoking Status: Smoker,Current Status Unk Frequency of alcohol use: None Drug Abuse: None Lives with: Family Family History: Hypertension - Past Medical History Cardiac Medical History: Reports: Hx Atrial Fibrillation, Hx Hypertension Pulmonary Medical History: Reports: Hx COPD Neurological Medical History: Denies: Hx Seizures Endocrine Medical History: Reports: Hx Diabetes Mellitus Type 2 Renal/ Medical History: Denies: Hx Peritoneal Dialysis GI Medical History: Reports: Hx Crohn's Disease Psychiatric Medical History: Reports: Hx Depression Past Surgical History: Reports: Hx Abdominal Surgery - untwist intestine, Hx Orthopedic Surgery Review of Systems - Review of Systems -: Yes ROS unobtainable due to patient's medical condition Physical Exam - Vital signs Vitals: Temp Pulse Resp BP Pulse Ox 97.6 F 177 H 16 103/60 95 04/26/19 10:49 04/26/19 10:49 04/26/19 10:49 04/26/19 10:49 04/26/19 10:49 Interpretation: Tachycardic - General General appearance: Appears well, Alert - HEENT Head: Normocephalic, Atraumatic Eyes: Normal Pupils: PERRL - Respiratory Respiratory status: No respiratory distress Chest status: Nontender Breath sounds: Normal Chest palpation: Normal - Cardiovascular Rhythm: Irregularly irregular, Tachycardia Heart sounds: Normal auscultation Murmur: No - Abdominal Inspection: Normal Distension: No distension Bowel sounds: Normal Tenderness: Nontender Organomegaly: No organomegaly - Back Back: Normal, Nontender - Extremities General upper extremity: Normal inspection, Nontender, Normal color, Normal ROM, Normal temperature General lower extremity: Normal inspection, Nontender, Edema, Normal color, Normal ROM, Normal temperature. No: Salma's sign - Neurological Neuro grossly intact: Yes Cognition: Normal Orientation: AAOx4 Anahy Coma Scale Eye Opening: Spontaneous Anahy Coma Scale Verbal: Oriented Anahy Coma Scale Motor: Obeys Commands Hume Coma Scale Total: 15 Speech: Normal Motor strength normal: LUE, RUE, LLE, RLE Sensory: Normal - Psychological Associated symptoms: Normal affect, Normal mood - Skin Skin Temperature: Warm Skin Moisture: Dry Skin Color: Normal Course - Re-evaluation Re-evalutation: 04/26/19 13:04 Patient seen immediately on arrival. Initial EKG showed a heart rate of 177. A bolus of diltiazem was initially given and then she returned to a slower rate but then went back into A. fib with RVR. Second bolus and drip as well as oral medication given. Patient remained stable at this time. Elevated blood count but no signs of infection. No fever. Hospitalist has been consulted. Plan to admit at this time. 04/26/19 13:05 Laboratory 04/26/19 04/26/19 04/26/19 11:10 11:10 11:10 WBC 21.0 H RBC 4.15 Hgb 11.4 L Hct 35.9 L MCV 87 MCH 27.4 MCHC 31.7 L RDW 16.2 H Plt Count 356 Total Counted 100 Seg Neutrophils % Not Reportable Seg Neuts % (Manual) 88 H Lymphocytes % Not Reportable Lymphocytes % (Manual) 7 L Atypical Lymphs % 1 Monocytes % Not Reportable Monocytes % (Manual) 1 L Eosinophils % Not Reportable Eosinophils % (Manual) 2 Basophils % Not Reportable Basophils % (Manual) 0 Metamyelocytes % 1 H Absolute Neutrophils Not Reportable Abs Neuts (Manual) 18.7 H Absolute Lymphocytes Not Reportable Abs Lymphs (Manual) 1.7 Absolute Monocytes Not Reportable Abs Monocytes (Manual) 0.2 Absolute Eosinophils Not Reportable Absolute Eos (Manual) 0.4 Absolute Basophils Not Reportable Abs Basophils (Manual) 0.0 Platelet Comment ADEQUATE Poikilocytosis 1+ Anisocytosis 1+ Ovalocytes 1+ Schistocytes SLIGHT Sodium 142.2 Potassium 4.5 Chloride 102 Carbon Dioxide 27 Anion Gap 13 BUN 27 H Creatinine 0.94 Est GFR ( Amer) > 60 Est GFR (Non-Af Amer) 57 L Glucose 155 H Calcium 9.0 Total Bilirubin 0.4 Direct Bilirubin 0.3 Neonat Total Bilirubin Not Reportable Neonat Direct Bilirubin Not Reportable Neonat Indirect Bili Not Reportable AST 10 L ALT 12 Alkaline Phosphatase 67 Creatine Kinase < 20 L CK-MB (CK-2) 1.18 Troponin I 0.032 Total Protein 5.7 L Albumin 3.1 L Chest X-Ray 04/26/19 10:56 IMPRESSION: 1. Stable examination since the prior study dated 04/18/2019. No acute findings. - Vital Signs Vital signs: Temp Pulse Resp BP Pulse Ox 97.6 F 177 H 21 H 118/69 63 L 04/26/19 10:49 04/26/19 10:49 04/26/19 12:46 04/26/19 12:46 04/26/19 12:46 - Laboratory Result Diagrams: 04/26/19 11:10 04/26/19 11:10 Laboratory results interpreted by me: 04/26/19 04/26/19 11:10 11:10 WBC 21.0 H Hgb 11.4 L Hct 35.9 L MCHC 31.7 L RDW 16.2 H Seg Neuts % (Manual) 88 H Lymphocytes % (Manual) 7 L Monocytes % (Manual) 1 L Metamyelocytes % 1 H Abs Neuts (Manual) 18.7 H BUN 27 H Est GFR (Non-Af Amer) 57 L Glucose 155 H AST 10 L Creatine Kinase < 20 L Total Protein 5.7 L Albumin 3.1 L Critical Care Note - Critical Care Note Total time excluding time spent on procedures (mins): 60 Comments: Hypotension, tachycardia, medication management, consultation with specialist. Discharge - Discharge Clinical Impression: Atrial fibrillation with rapid ventricular response Condition: Fair Disposition: ADMITTED INPATIENT Admitting Provider: Bindu (Hospitalist) Unit Admitted: IMCU Referrals: JEANIE CANADA PA-C [Primary Care Provider] - Follow up as needed
--- NOTE | 2019-04-26 11:45 | RADIOLOGY REPORT (SQ) ---
EXAM DESCRIPTION: CHEST SINGLE VIEW COMPLETED DATE/TIME: 04/26/2019 11:22 am REASON FOR STUDY: bed 1 elevated hr COMPARISON: 04/18/2019 EXAM PARAMETERS: NUMBER OF VIEWS: One view. TECHNIQUE: Single frontal radiographic view of the chest acquired. RADIATION DOSE: NA LIMITATIONS: None. FINDINGS: LUNGS AND PLEURA: Emphysema, stable finding. Stable 8 mm nodule at the right lung base. No acute pulmonary consolidation. Minimal scarring or atelectasis at the left base. No pneumothora x or pleural effusion. MEDIASTINUM AND HILAR STRUCTURES: No masses. Contour normal. HEART AND VASCULAR STRUCTURES: Heart normal in size. Normal vasculature. BONES: No acute findings. HARDWARE: None in the chest. OTHER: No other significant finding. IMPRESSION: 1. Stable examination since the prior study dated 04/18/2019. No acute findings. TECHNICAL DOCUMENTATION: JOB ID: [id number] [employer]- All Rights Reserved Reading location - IP/workstation name: [email or web address]
[2019-04-26 11:52] LABS: ALANINE AMINOTRANSFERASE 12 U/L (9-52); ALBUMIN 3.1 g/dL (3.5-5.0); ALKALINE PHOSPHATASE 67 U/L (38-126); ANION GAP 13 (5-19); ASPARTATE AMINO TRANSFERASE 10 U/L (14-36); BILIRUBIN,DIRECT 0.3 mg/dL (0.0-0.4); BILIRUBIN,TOTAL 0.4 mg/dL (0.2-1.3); BLOOD UREA NITROGEN 27 mg/dL (7-20); CARBON DIOXIDE 27 mmol/L (22-30); CHLORIDE 102 mmol/L (98-107); GLUCOSE 155 mg/dL (75-110); POTASSIUM 4.5 mmol/L (3.6-5.0); SODIUM 142.2 mmol/L (137-145); TOTAL PROTEIN 5.7 g/dL (6.3-8.2)
[2019-04-26 12:03] LABS: CREATINE KINASE < 20 U/L (30-135)
[2019-04-26 12:06] LABS: CREATINE KINASE MB 1.18 ng/mL (<4.55); TROPONIN I 0.032 ng/mL
[2019-04-26 12:10] LABS: ABSOLUTE LYMPHOCYTES# (MANUAL) 1.7 10^3/uL (0.5-4.7); ABSOLUTE MONOCYTES # (MANUAL) 0.2 10^3/uL (0.1-1.4); ABSOLUTE NEUTROPHILS# (MANUAL) 18.7 10^3/uL (1.7-8.2); BASOPHILS % (MANUAL) 0 % (0-2); EOSINOPHILS % (MANUAL) 2 % (0-6); LYMPHOCYTES % (MANUAL) 7 % (13-45); METAMYELOCYTES % (MANUAL) 1 % (0); MONOCYTES % (MANUAL) 1 % (3-13); SEGMENTED NEUTROPHILS % (MAN) 88 % (42-78); TOTAL CELLS COUNTED 100
[2019-04-26 12:11] LABS: ANISOCYTOSIS 1+; OVALOCYTES 1+; PLATELET COMMENT ADEQUATE; POIKILOCYTOSIS 1+; SCHISTOCYTES SLIGHT
[2019-04-26] MEDS ORDERED: DILTIAZEM HCL 60 MG TABLET PO ONE (12:16)
--- NOTE | 2019-04-26 13:17 | EKG REPORT ---
SEVERITY:- ABNORMAL ECG - SUPRAVENTRICULAR TACHYCARDIA( ATRIAL FLUTTER) BORDERLINE IVCD WITH LAD : Confirmed by: Zay Rader MD 26-Apr-2019 13:17:09
--- NOTE | 2019-04-26 13:18 | EKG REPORT ---
SEVERITY:- ABNORMAL ECG - ATRIAL FIBRILLATION BORDERLINE LEFT AXIS DEVIATION : Confirmed by: Zay Rader MD 26-Apr-2019 13:17:27
--- NOTE | 2019-04-26 13:38 | PDOC H&P ---
History of Present Illness Admission Date/PCP: 04/26/19 13:18 JEANIE CAANDA PA-C History of Present Illness: JOSE DANIEL LONG is a 78 year old female with past medical history of Cr ohn's disease, COPD, coronary 3 disease, atrial fibrillation, type 2 diabetes mellitus, chronic anemia, hypertension, everyday smoker brought by family members with chief complaint of palpitation and shortness of breath. Patient is agitated and has some underlying dementia. She could not give me any meaningful history. No family member in the room during my encounter. History is obtained from ER attending note and reviewing previous medical charts. Presentation patient was in A. fib with RVR with heart rate of 177 initially she was given a bolus of Cardizem the heart rate seems trending down but it bounced back again so at this point she was put on Cardizem drip and referred to hospitalist for admission. Past Medical History Cardiac Medical History: Reports: Atrial Fibrillation, Hypertension Pulmonary Medical History: Reports: Chronic Obstructive Pulmonary Disease (COPD) Neurological Medical History: Denies: Seizures Endocrine Medical History: Reports: Diabetes Mellitus Type 2 GI Medical History: Reports: Crohn's Disease Psychiatric Medical History: Reports: Depression Past Surgical History Past Surgical History: Reports: Orthopedic Surgery Social History Lives with: Family Smoking Status: Current Every Day Smoker Frequency of Alcohol Use: None Hx Recreational Drug Use: No Drugs: None Hx Prescription Drug Abuse: No - Advance Directive Resuscitation Status: Full Code Family History Family History: Hypertension Parental Family History Reviewed: Yes Children Family History Reviewed: Yes Sibling(s) Family History Reviewed.: Yes Medication/Allergy Home Medications: Cranberry Conc/Ascorbic Acid [Cranberry Plus Vitamin C Sftgl] 1 each PO ASDIR PRN 04/18/19 Diltiazem HCl [Cartia Xt] 120 mg PO DAILY 04/18/19 Donepezil HCl [Aricept] 5 mg PO QHS 04/18/19 Duloxetine HCl [Cymbalta] 30 mg PO DAILY 04/18/19 Ergocalciferol (Vitamin D2) [Drisdol] 50,000 unit PO Q7D 04/18/19 Furosemide [Lasix] 20 mg PO DAILY 04/18/19 Glimepiride [Amaryl 1 mg Tablet] 1 mg PO QAM 04/18/19 Lisinopril [Prinivil 40 mg Tablet] 40 mg PO DAILY 04/18/19 Magnesium 250 mg PO ASDIR 04/18/19 Mesalamine [Lialda] 2 tab PO DAILY 04/18/19 Metformin HCl 500 mg PO BID 04/18/19 Naproxen [Naprosyn 250 mg Tablet] 250 mg PO DAILY PRN 04/18/19 Potassium Chloride [Klor-Con 10 Meq Capsule ER] 10 meq PO DAILY 04/18/19 Tizanidine HCl 1 tab PO Q8 PRN 04/18/19 Buspirone HCl [Buspar 5 mg Tablet] 1 tab PO BID #30 tab 04/19/19 Divalproex Sodium [Depakote] 250 mg PO BID #30 tablet. 04/19/19 Risperidone [Risperdal 0.25 Mg Tablet] 0.25 mg PO BID #30 tablet 04/19/19 Allergies/Adverse Reactions: No Known Allergies Allergy (Verified 04/26/19 10:46) Review of Systems ROS unobtainable: Due to mental status Physical Exam Vital Signs: Temp Pulse Resp BP Pulse Ox 97.6 F 177 H 26 H 113/63 86 L 04/26/19 10:49 04/26/19 10:49 04/26/19 13:15 04/26/19 13:15 04/26/19 13:01 Intake & Output 04/25/19 04/26/19 04/27/19 06:59 06:59 06:59 Intake Total 4 Balance 4 Weight 61.5 kg General appearance: PRESENT: mild distress Head exam: PRESENT: atraumatic Eye exam: PRESENT: conjunctiva pink Mouth exam: PRESENT: dry mucosa Respiratory exam: PRESENT: wheezes Cardiovascular exam: PRESENT: irregular rhythm, tachycardia GI/Abdominal exam: PRESENT: normal bowel sounds, soft. ABSENT: distended, guarding, mass, organolmegaly, rebound, tenderness Neurological exam: PRESENT: alert, awake Results Laboratory Results: 04/26/19 11:10 04/26/19 11:10 04/26/19 04/26/19 11:10 11:10 WBC 21.0 H RBC 4.15 Hgb 11.4 L Hct 35.9 L MCV 87 MCH 27.4 MCHC 31.7 L RDW 16.2 H Plt Count 356 Seg Neutrophils % Not Reportable Lymphocytes % Not Reportable Monocytes % Not Reportable Eosinophils % Not Reportable Basophils % Not Reportable Absolute Neutrophils Not Reportable Absolute Lymphocytes Not Reportable Absolute Monocytes Not Reportable Absolute Eosinophils Not Reportable Absolute Basophils Not Reportable Sodium 142.2 Potassium 4.5 Chloride 102 Carbon Dioxide 27 Anion Gap 13 BUN 27 H Creatinine 0.94 Est GFR ( Amer) > 60 Est GFR (Non-Af Amer) 57 L Glucose 155 H Calcium 9.0 Total Bilirubin 0.4 AST 10 L ALT 12 Alkaline Phosphatase 67 Total Protein 5.7 L Albumin 3.1 L 04/26/19 04/26/19 04/26/19 11:10 11:10 11:39 Creatine Kinase < 20 L CK-MB (CK-2) 1.18 Troponin I 0.032 NT-Pro-B Natriuret Pep 2010 H Impressions: Chest X-Ray 04/26/19 10:56 IMPRESSION: 1. Stable examination since the prior study dated 04/18/2019. No acute findings. Assessment and Plan - Diagnosis (1) Atrial fibrillation with RVR Is this a current diagnosis for this admission?: Yes Plan: I will continue her Cardizem drip and admitted to [facility]. Continuous trust manager assistant. (2) Leukocytosis Qualifiers: Leukocytosis type: unspecified Qualified Code(s): D72.829 - Elevated white blood cell count, unspecified Is this a current diagnosis for this admission?: Yes Plan: No sign of infection. We will monitor CBC. (3) COPD (chronic obstructive pulmonary disease) Qualifiers: Emphysema type: unspecified Is this a current diagnosis for this admission?: Yes Plan: Put her PRN bronchodilator. (4) Coronary artery disease Is this a current diagnosis for this admission?: Yes Plan: No anginal symptoms. (5) Type 2 diabetes mellitus Is this a current diagnosis for this admission?: Yes Plan: Her home meds and sliding scale. (6) Crohns disease Is this a current diagnosis for this admission?: Yes Plan: In remission.
[2019-04-26] MEDS ORDERED: NICOTINE 14 MG/24 HR PATCH.TD24 TD PRN (13:51)
[2019-04-26] MEDS ORDERED: DEXTROSE 50%-WATER 25 GM/50 ML DISP.SYRIN IV PRN ×2 (13:52)
[2019-04-26] MEDS ORDERED: GLUCAGON,HUMAN RECOMB 1 MG INJ IM PRN (13:52)
[2019-04-26] MEDS ORDERED: DEXTROSE 40% GEL 15 GM TUBE PO PRN ×2 (13:52)
[2019-04-26] MEDS ORDERED: DILTIAZEM HCL 180 MG CAPSULE.CR PO ONE (13:52)
[2019-04-26] MEDS: IPRATROPIUM/ALBUTEROL 0.5-2.5 MG/3 ML AMPUL NEB SCH ×2 (14:21→20:21)
[2019-04-26] MEDS: ENOXAPARIN SODIUM INJ 30 MG/0.3 ML DISP.SYRIN SUBCUT SCH (16:56)
[2019-04-26] MEDS: INSULIN LISPRO 100 UNIT/ML 3 ML VIAL SUBCUT SCH ×2 (17:01→22:58)
[2019-04-26] MEDS: LORAZEPAM INJ 2 MG/1 ML VIAL IV PRN (21:20)
[2019-04-27] MEDS: IPRATROPIUM/ALBUTEROL 0.5-2.5 MG/3 ML AMPUL NEB SCH ×3 (02:06→14:02)
[2019-04-27] MEDS: LORAZEPAM INJ 2 MG/1 ML VIAL IV PRN ×4 (05:39→21:47)
[2019-04-27 05:43] LABS: ANION GAP 9 (5-19); BLOOD UREA NITROGEN 24 mg/dL (7-20); CALCIUM 8.4 mg/dL (8.4-10.2); CARBON DIOXIDE 28 mmol/L (22-30); CHLORIDE 105 mmol/L (98-107); GLUCOSE 98 mg/dL (75-110); POTASSIUM 3.6 mmol/L (3.6-5.0); SODIUM 141.9 mmol/L (137-145)
[2019-04-27 05:48] LABS: ABSOLUTE MONOCYTES (AUTO) 0.5 10^3/uL (0.1-1.4); ABSOLUTE NEUT (AUTO) 8.6 10^3/uL (1.7-8.2); BASOPHILS % (AUTO) 0.5 % (0-2); EOSINOPHILS % (AUTO) 0.3 % (0-6); HEMATOCRIT 34.5 % (36.0-47.0); HEMOGLOBIN 11.1 g/dL (12.0-15.5); LYMPHOCYTES % (AUTO) 9.6 % (13-45); MEAN CORPUSCULAR HEMOGLOBIN 27.6 pg (27.0-33.4); MEAN CORPUSCULAR HGB CONC 32.1 g/dL (32.0-36.0); MEAN CORPUSCULAR VOLUME 86 fl (80-97); MONOCYTES % (AUTO) 4.6 % (3-13); PLATELET COUNT 233 10^3/uL (150-450); RED CELL DISTRIBUTION WIDTH 16.5 % (11.5-14.0); TOTAL CELLS COUNTED % (AUTO) 100 %; WHITE BLOOD COUNT 10.1 10^3/uL (4.0-10.5)
[2019-04-27] MEDS ORDERED: ENOXAPARIN SODIUM INJ 30 MG/0.3 ML DISP.SYRIN SUBCUT SCH (10:00)
[2019-04-27] MEDS: DILTIAZEM HCL 180 MG CAPSULE.CR PO SCH (10:06)
[2019-04-27 12:37] LABS: APPEARANCE,URINE SLIGHTLY-CLOUDY; BILIRUBIN,URINE NEGATIVE (NEGATIVE); COLOR,URINE YELLOW; GLUCOSE, URINE NEGATIVE (NEGATIVE); KETONES,URINE NEGATIVE (NEGATIVE); LEUKOCYTE ESTERASE,URINE MODERATE (NEGATIVE); NITRITE,URINE POSITIVE (NEGATIVE); PROTEIN,URINE NEGATIVE (NEGATIVE); URINE SPECIFIC GRAVITY 1.012; UROBILINOGEN,URINE NEGATIVE mg/dL (<2.0)
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
[2019-04-27] MEDS: INSULIN LISPRO 100 UNIT/ML 3 ML VIAL SUBCUT SCH ×4 (13:33→21:48)
[2019-04-27] MEDS: ENOXAPARIN SODIUM INJ 30 MG/0.3 ML DISP.SYRIN SUBCUT SCH (13:34)
[2019-04-27] MEDS ORDERED: IPRATROPIUM/ALBUTEROL 0.5-2.5 MG/3 ML AMPUL NEB PRN (14:40)
[2019-04-27] MEDS: SULFAMETHOXAZOLE/TRIMETHOPRIM 800-160 MG TABLET PO SCH (18:24)
[2019-04-27] MEDS: BUSPIRONE HCL 10 MG TABLET PO SCH (21:47)
[2019-04-27] MEDS: DIVALPROEX SODIUM 250 MG TABLET.DR PO SCH (21:48)
[2019-04-27] MEDS ORDERED: DONEPEZIL HCL 5 MG TABLET PO SCH (22:00)
[2019-04-28] MEDS: LORAZEPAM INJ 2 MG/1 ML VIAL IV PRN ×2 (01:35→05:50)
[2019-04-28 05:10] LABS: ABSOLUTE BASOPHILS # (AUTO) 0.1 10^3/uL (0.0-0.2); ABSOLUTE EOSINOPHILS # (AUTO) 0.2 10^3/uL (0.0-0.6); ABSOLUTE LYMPHOCYTES (AUTO) 1.1 10^3/uL (0.5-4.7); ABSOLUTE MONOCYTES (AUTO) 0.8 10^3/uL (0.1-1.4); BASOPHILS % (AUTO) 0.7 % (0-2); HEMATOCRIT 30.4 % (36.0-47.0); HEMOGLOBIN 9.9 g/dL (12.0-15.5); LYMPHOCYTES % (AUTO) 10.6 % (13-45); MEAN CORPUSCULAR HEMOGLOBIN 27.9 pg (27.0-33.4); MEAN CORPUSCULAR HGB CONC 32.5 g/dL (32.0-36.0); MEAN CORPUSCULAR VOLUME 86 fl (80-97); MONOCYTES % (AUTO) 8.2 % (3-13); PLATELET COUNT 262 10^3/uL (150-450); RED BLOOD COUNT 3.55 10^6/uL (3.72-5.28); RED CELL DISTRIBUTION WIDTH 16.4 % (11.5-14.0); SEGMENTED NEUTROPHILS % (AUTO) 78.5 % (42-78); TOTAL CELLS COUNTED % (AUTO) 100 %; WHITE BLOOD COUNT 10.2 10^3/uL (4.0-10.5)
[2019-04-28 07:30] VITALS: BP 135/57
[2019-04-28] MEDS ORDERED: RISPERIDONE 0.25 MG TABLET PO SCH (08:00)
[2019-04-28] MEDS: INSULIN LISPRO 100 UNIT/ML 3 ML VIAL SUBCUT SCH ×2 (09:04→12:33)
[2019-04-28] MEDS ORDERED: TIOTROPIUM BROMIDE DPI 5 CAP/KIT (18 MCG/CAP) IH SCH (10:00)
[2019-04-28] MEDS ORDERED: LISINOPRIL 10 MG TABLET PO SCH (10:00)
[2019-04-28] MEDS ORDERED: DULOXETINE HCL 30 MG CAPSULE.DR PO SCH (10:00)
[2019-04-28] MEDS: SULFAMETHOXAZOLE/TRIMETHOPRIM 800-160 MG TABLET PO SCH (12:10)
[2019-04-28] MEDS: DILTIAZEM HCL 180 MG CAPSULE.CR PO SCH (12:11)
[2019-04-28] MEDS: BUSPIRONE HCL 10 MG TABLET PO SCH (12:12)
[2019-04-28] MEDS: DIVALPROEX SODIUM 250 MG TABLET.DR PO SCH (12:14)
[2019-04-28] MEDS: ENOXAPARIN SODIUM INJ 30 MG/0.3 ML DISP.SYRIN SUBCUT SCH (12:24)
--- NOTE | 2019-04-28 19:33 | PDOC PROGRESS REPORT ---
Subjective Progress Note for:: 04/27/19 Subjective:: The patient was quite agitated earlier. She is currently somnolent. She does remain in restraints as she can be violent at times. Reason For Visit: AFIB WITH RVR Physical Exam Vital Signs: Temp Pulse Resp BP Pulse Ox 97.4 F 87 19 138/75 H 99 04/27/19 03:37 04/27/19 14:02 04/27/19 14:02 04/27/19 03:37 04/27/19 14:02 Intake & Output 04/26/19 04/27/19 04/28/19 06:59 06:59 06:59 Intake Total 354 Balance 354 Weight 61.9 kg General appearance: PRESENT: no acute distress, other - Somnolent Head exam: PRESENT: atraumatic, normocephalic Respiratory exam: PRESENT: clear to auscultation jasson, symmetrical, unlabored. ABSENT: rales, rhonchi, wheezes Cardiovascular exam: PRESENT: irregular rhythm GI/Abdominal exam: PRESENT: normal bowel sounds, soft. ABSENT: distended, tenderness Rectal exam: PRESENT: deferred Neurological exam: PRESENT: awake. ABSENT: alert - Patient is somnolent. Psychiatric exam: PRESENT: agitated - Was agitated earlier. Focused psych exam: PRESENT: other - Somnolent Results Laboratory Results: 04/27/19 04:52 04/27/19 04:52 04/27/19 04/27/19 04/27/19 04:52 04:52 12:05 WBC 10.1 RBC 4.00 Hgb 11.1 L Hct 34.5 L MCV 86 MCH 27.6 MCHC 32.1 RDW 16.5 H Plt Count 233 Seg Neutrophils % 85.0 H Lymphocytes % 9.6 L Monocytes % 4.6 Eosinophils % 0.3 Basophils % 0.5 Absolute Neutrophils 8.6 H Absolute Lymphocytes 1.0 Absolute Monocytes 0.5 Absolute Eosinophils 0.0 Absolute Basophils 0.0 Sodium 141.9 Potassium 3.6 Chloride 105 Carbon Dioxide 28 Anion Gap 9 BUN 24 H Creatinine 0.80 Est GFR ( Amer) > 60 Est GFR (Non-Af Amer) > 60 Glucose 98 Calcium 8.4 Urine Color YELLOW Urine Appearance SLIGHTLY-CLOUDY Urine pH 5.0 Ur Specific Basye 1.012 Urine Protein NEGATIVE Urine Glucose (UA) NEGATIVE Urine Ketones NEGATIVE Urine Blood NEGATIVE Urine Nitrite POSITIVE H Ur Leukocyte Esterase MODERATE H Urine WBC (Auto) 24 Urine RBC (Auto) 1 04/26/19 04/26/19 04/26/19 11:10 11:10 11:39 Creatine Kinase < 20 L CK-MB (CK-2) 1.18 Troponin I 0.032 NT-Pro-B Natriuret Pep 2010 H 04/26/19 18:25 Creatine Kinase CK-MB (CK-2) Troponin I 0.028 NT-Pro-B Natriuret Pep Impressions: Chest X-Ray 04/26/19 10:56 IMPRESSION: 1. Stable examination since the prior study dated 04/18/2019. No acute findings. Assessment and Plan - Diagnosis (1) Atrial fibrillation with RVR Is this a current diagnosis for this admission?: Yes Plan: 04/27/2019-the patient has weaned off of the diltiazem drip and is now on long- acting diltiazem 180 mg daily. Pulse is still occasionally above 100 but some of this is likely due to agitation. Continue to monitor heart rate and adjust medications accordingly. (2) Leukocytosis Qualifiers: Leukocytosis type: other Qualified Code(s): D72.828 - Other elevated white blood cell count Is this a current diagnosis for this admission?: Yes Plan: 04/27/2019-patient has a left shift but the white blood cell count is actually back to normal. Urinalysis revealed positive white blood cells, leukocyte esterase and nitrites. This is most likely causing the elevated white blood cell count. (3) COPD (chronic obstructive pulmonary disease) Qualifiers: Emphysema type: unspecified Is this a current diagnosis for this admission?: Yes Plan: 04/27/2019-currently on Spiriva and DuoNeb's. Will look to wean back. It appears that the patient has an albuterol inhaler at home but possibly no combination inhaler. Will review further tomorrow. (4) Coronary artery disease Qualifiers: Coronary Disease-Associated Artery/Lesion type: [place] artery Is this a current diagnosis for this admission?: Yes Plan: 04/27/2019-the patient has a history of coronary disease. We will continue her antihypertensive medications. It does not appear that she is on aspirin. Will look into this further tomorrow. (5) Crohns disease Qualifiers: Gastrointestinal tract location: unspecified location Is this a current diagnosis for this admission?: Yes Plan: 04/27/2019-the patient has a history of Crohn's disease. She is currently on Lialda for maintenance therapy. Continue current dosing. (6) Type 2 diabetes mellitus Qualifiers: Diabetes mellitus mcc insulin use: without mcc use Is this a current diagnosis for this admission?: Yes Plan: 04/27/2019-the patient is currently on a sliding scale. At home she is on metformin and glimepiride. We will try and work back to her regular medications during her hospitalization. For now continue the sliding scale. (7) Acute cystitis Qualifiers: Hematuria presence: without hematuria Qualified Code(s): N30.00 - Acute cystitis without hematuria Is this a current diagnosis for this admission?: Yes Plan: 04/27/2019-as noted above when the patient does have an episode of cystitis she tends to become more agitated. We did obtain a urinalysis and it showed evidence of infection. A specimen was sent for culture. I did start the patient on Bactrim DS 1 tablet twice daily as this should help in general with r aaronard to her agitation as well as her leukocytosis. Once the final culture results are obtained we will be able to streamline the antibiotic therapy. (8) Dementia Qualifiers: Dementia type: Alzheimer's disease Is this a current diagnosis for this admission?: Yes Plan: 04/27/2019-the patient will be given her cadre of home medications. She is on Depakote, duloxetine, BuSpar, Risperdal, lorazepam and Aricept. We will not make any changes but rather defer to her outpatient physicians. - Time Time Spent with patient: 25-34 minutes Medications reviewed and adjusted accordingly: Yes Anticipated discharge: Home Within: within 24 hours - Plan Summary Plan Summary: After lengthy discussion with the patient's daughters they are prepared to take care of at home. We both agreed that she will likely be more settled when she is back in her normal environment. If the urinary tract infection is what triggered this acute change then treatment will also be beneficial. If the patient has a stable night and is tolerating the antibiotic therapy I will most likely discharge her to home tomorrow. Patient's daughters are in agreement with this plan.
--- NOTE | 2019-04-28 19:36 | Left Against Medical Advice ---
Against Medical Advice Admission Date/Time: 04/26/19 13:18 Primary Care Provider: JEANIE CANADA PA-C Date of Patient Emigration: 04/28/19 - Diagnosis: (1) Atrial fibrillation with RVR Is this a current diagnosis for this admission?: Yes (2) Leukocytosis Is this a current diagnosis for this admission?: Yes (3) COPD (chronic obstructive pulmonary disease) Is this a current diagnosis for this admission?: Yes (4) Coronary artery disease Is this a current diagnosis for this admission?: Yes (5) Crohns disease Is this a current diagnosis for this admission?: Yes (6) Type 2 diabetes mellitus Is this a current diagnosis for this admission?: Yes (7) Acute cystitis Is this a current diagnosis for this admission?: Yes (8) Dementia Is this a current diagnosis for this admission?: Yes - Summary: Summary: Please see Admission and Progress Notes as well. JOSE DANIEL LONG is a 78 F, who LEFT AGAINST MEDICAL ADVICE. The Patient was admitted on 04/26/19 13:18. The patient was clearly more agitated than baseline during the admission. It was felt that this was likely due to the urinary tract infection. She was also on oxygen and receiving nebulizer treatments. I did discuss with the family yesterday the fact that I would most likely discharge the patient home today. Unfortunately acutely ill patients delayed my arrival time to see the patient. Her daughters became quite upset. The nurse tried to explain multiple times that I was doing her best to get there. They felt that this was unsatisfactory. Please also see the nurse's notes. They opted to take her mother home. Unfortunately she does not have a prescription for antibiotics as was planned. The daughters reported that they would take her to urgent care if she needed antibiotics.
== END 2019-04-28 13:00 | disposition left against medical advice (07) ==
LOC: ER 10:42 → INTOOBSV 13:18 → EH 13:18 → 3S 15:49
PROVIDERS: ADMIT Internal Medicine; ATTEND Internal Medicine
DX: I48.91 Unspecified atrial fibrillation (principal); D72.828 Other elevated white blood cell count; J43.9 Emphysema, unspecified; I25.10 Atherosclerotic heart disease of native coronary artery without angina pectoris; K50.90 Crohn's disease, unspecified, without complications; E11.9 Type 2 diabetes mellitus without complications; N30.00 Acute cystitis without hematuria; G30.9 Alzheimer's disease, unspecified; F02.81 Dementia in other diseases classified elsewhere, unspecified severity, with behavioral disturbance; F17.200 Nicotine dependence, unspecified, uncomplicated; I10 Essential (primary) hypertension; I95.9 Hypotension, unspecified; Z82.49 Family history of ischemic heart disease and other diseases of the circulatory system; Z79.84 Long term (current) use of oral hypoglycemic drugs; Z79.899 Other long term (current) drug therapy; Z78.1 Physical restraint status
CPT/HCPCS: 93005; 96376; 99285; 96365; 96366; 36415 ×3; 82553; 82962 ×2; 82550; 85025 ×3; 80048; 80053; 81001; 84484; 83880; 71045; 93010; 94640 ×3; G0378 ×4; A9270 ×15; J3490 ×2; J2060 ×3; J7030; J7620

== ENCOUNTER 2019-06-02 20:30 | Inpatient (IN) | payer MEDICARE, MEDICAID ==
[2019-06-02] MEDS ORDERED: DILTIAZEM HCL/D5W 125 MG/125 ML RTUINJ IV PRN (21:30)
--- NOTE | 2019-06-02 21:34 | ER Document Report ---
ED General - General Chief Complaint: Altered Mental Status Stated Complaint: ALTERED MENTAL STATUS Time Seen by Provider: 06/02/19 20:35 Primary Care Provider: JEANIE CANADA PA-C [Primary Care Provider] - Follow up as needed Notes: 78-year-old female with history of congestive heart failure, atrial fibrillation with RVR, dementia brought in by ambulance to the emergency department for altered mental status, chronic UTIs, and SI. Patient is a difficult historian asked her why she was here she stated "I came here to ". She knew she was in the hospital but did not know she was in the emergency department. She does not know how she got here or who brought her here. She states that she lives by herself although from previous documentation shows that she lives with HER-2 daughters. Patient denies any headache, vision changes, acute shortness of breath or chest pain, acute weakness, abdominal pain, denies any urinary symptoms. No other complaints TRAVEL OUTSIDE OF THE [place] IN LAST 30 DAYS: No - Related Data Allergies/Adverse Reactions: No Known Allergies Allergy (Verified 04/26/19 10:46) Past Medical History - Social History Smoking Status: Unknown if Ever Smoked Family History: Hypertension - Past Medical History Cardiac Medical History: Reports: Hx Atrial Fibrillation, Hx Hypertension Pulmonary Medical History: Reports: Hx COPD Neurological Medical History: Denies: Hx Seizures Endocrine Medical History: Reports: Hx Diabetes Mellitus Type 2 Renal/ Medical History: Denies: Hx Peritoneal Dialysis GI Medical History: Reports: Hx Crohn's Disease Psychiatric Medical History: Reports: Hx Depression Past Surgical History: Reports: Hx Abdominal Surgery - untwist intestine, Hx Orthopedic Surgery Review of Systems - Review of Systems Constitutional: See HPI EENT: No symptoms reported Cardiovascular: See HPI Respiratory: See HPI Gastrointestinal: See HPI Genitourinary: See HPI Female Genitourinary: No symptoms reported Musculoskeletal: No symptoms reported Skin: No symptoms reported Hematologic/Lymphatic: No symptoms reported Neurological/Psychological: See HPI Physical Exam - Vital signs Vitals: Pulse Resp BP Pulse Ox 112 H 20 165/75 H 95 06/02/19 20:31 06/02/19 20:31 06/02/19 20:31 06/02/19 20:31 - Notes Notes: PHYSICAL EXAMINATION: Reviewed vital signs and charting by RN GENERAL: Alert, interacts well. No acute distress. HEAD: Normocephalic, atraumatic. EYES: Pupils equal and round. Extraocular movements intact. ENT: Oral mucosa moist, tongue midline. NECK: Full range of motion. Trachea midline. LUNGS: Diffuse wheezes heard throughout, no respiratory distress. HEART: Irregularly irregular rhythm, rate less than 100. No murmur ABDOMEN: soft, non-tender. No distention. Bowel sounds present EXTREMITIES: Moves all 4 extremities spontaneously. No edema, No cyanosis. PSYCH: Normal affect, normal mood. SKIN: Warm, dry, normal turgor. No rashes or lesions noted. Course - Re-evaluation Re-evalutation: 06/02/19 21:38 Patient appears depressed and states that she no longer wants to live. She has a recent history of this. Upon initial interview she was in A. fib with a normal rhythm but then she went into what appears to be a flutter with a 2:1 ratio with a consistent rate of 157. Briefly discussed with Dr. Heber Mooney, attending. I did order a Cardizem drip and it is not been hung yet but patient's heart rate has come down to about 119-124 and she appears to be in A. fib with RVR. SPO2 has been steady at 92 to 93%. Blood pressure stable. No incidents of hypotension. 06/02/19 22:21 Daughters arrived to the bedside and gave me the background. They were the ones that called EMS because they said she has had some mental changes where she becoming more angry and difficult to work with. She has not taken Keflex which she is using for UTI prophylaxis and at least a week and they are concerned that she might have a UTI. Cardizem drip has been initiated but patient is still in what appears to be a flutter. Blood pressure 141/90 and SPO2 95%. 06/02/19 23:09 Patient did not convert on the Cardizem drip so digoxin 500 mcg was given IV 1 time. About 15 minutes after she received a dose her heart rate dropped to 90 and she converted out of RVR. Still waiting on urinalysis prior to initiating admission. 06/02/19 23:24 Patient became confused and agitated and tried to get out of the bed and leave. Charge was approached and asked if we could place soft limb restraints due to patient safety risk. They have been ordered 06/03/19 01:32 A troponin was added as I overlooked it initially. It was negative. I called Dr. Meeks, hospitalist, who accepted the patient for full admission to the IMCU. - Vital Signs Vital signs: Temp Pulse Resp BP Pulse Ox 98.0 F 112 H 19 148/55 H 99 06/02/19 20:49 06/02/19 20:31 06/02/19 23:11 06/02/19 23:11 06/02/19 23:11 - Laboratory Result Diagrams: 06/02/19 21:20 06/02/19 21:20 Laboratory results interpreted by me: 06/02/19 06/02/19 06/02/19 21:20 21:20 21:20 WBC 13.1 H RBC 3.16 L Hgb 8.6 L Hct 26.9 L RDW 17.1 H Seg Neutrophils % 83.2 H Lymphocytes % 7.7 L Absolute Neutrophils 10.9 H BUN 22 H AST 9 L NT-Pro-B Natriuret Pep 2350 H Total Protein 5.7 L Albumin 3.0 L Critical Care Note - Critical Care Note Total time excluding time spent on procedures (mins): 35 Comments: Critical care time spent obtaining history from patient or surrogate, discussions with consultants, development of treatment plan with patient or surrogate, evaluation of patient's response to treatment, examination of patient, ordering and performing treatments and interventions, ordering and review of laboratory studies, re-evaluation of patient's condition, ordering and review of radiographic studies and review of old charts Discharge - Discharge Clinical Impression: Atrial fibrillation with RVR, Acute hyperactive delirium due to another medical condition Atrial flutter Qualifiers: Atrial flutter type: unspecified Qualified Code(s): I48.92 - Unspecified atrial flutter Condition: Stable Disposition: ADMITTED INPATIENT Admitting Provider: Constantino (Hospitalist) Unit Admitted: [facility] Referrals: JEANIE CANADA PA-C [Primary Care Provider] - Follow up as needed
[2019-06-02 21:42] LABS: ABSOLUTE BASOPHILS # (AUTO) 0.1 10^3/uL (0.0-0.2); ABSOLUTE EOSINOPHILS # (AUTO) 0.2 10^3/uL (0.0-0.6); ABSOLUTE MONOCYTES (AUTO) 0.8 10^3/uL (0.1-1.4); ABSOLUTE NEUT (AUTO) 10.9 10^3/uL (1.7-8.2); EOSINOPHILS % (AUTO) 1.6 % (0-6); HEMATOCRIT 26.9 % (36.0-47.0); HEMOGLOBIN 8.6 g/dL (12.0-15.5); LYMPHOCYTES % (AUTO) 7.7 % (13-45); MEAN CORPUSCULAR HEMOGLOBIN 27.3 pg (27.0-33.4); MEAN CORPUSCULAR VOLUME 85 fl (80-97); MONOCYTES % (AUTO) 6.5 % (3-13); PLATELET COUNT 392 10^3/uL (150-450); RED BLOOD COUNT 3.16 10^6/uL (3.72-5.28); RED CELL DISTRIBUTION WIDTH 17.1 % (11.5-14.0); SEGMENTED NEUTROPHILS % (AUTO) 83.2 % (42-78); TOTAL CELLS COUNTED % (AUTO) 100 %; WHITE BLOOD COUNT 13.1 10^3/uL (4.0-10.5)
[2019-06-02 22:04] LABS: ALANINE AMINOTRANSFERASE 14 U/L (9-52); ALKALINE PHOSPHATASE 68 U/L (38-126); ANION GAP 6 (5-19); ASPARTATE AMINO TRANSFERASE 9 U/L (14-36); BILIRUBIN,DIRECT 0.2 mg/dL (0.0-0.4); BILIRUBIN,TOTAL 0.2 mg/dL (0.2-1.3); BLOOD UREA NITROGEN 22 mg/dL (7-20); CALCIUM 8.9 mg/dL (8.4-10.2); CARBON DIOXIDE 28 mmol/L (22-30); CHLORIDE 106 mmol/L (98-107); GLUCOSE 101 mg/dL (75-110); POTASSIUM 4.5 mmol/L (3.6-5.0); TOTAL PROTEIN 5.7 g/dL (6.3-8.2)
[2019-06-02] MEDS ORDERED: DIGOXIN INJ 0.5 MG/2 ML AMPULE IV ONE (22:32)
[2019-06-03] MEDS ORDERED: ZIPRASIDONE MESYLATE INJ/PF 20 MG SDV IM ONE (00:16)
--- NOTE | 2019-06-03 00:21 | ER Document Report ---
Doctor's Note Notes: I personally and independently obtained patient history and examined the patient in conjunction with the APC and agree with the assessment, treatment plan and disposition of the patient as recorded by the APC, and have reviewed the APC's note. HISTORY OF PRESENT ILLNESS: Patient is a 78-year-old female with atrial fibrillation and dementia that presents to the emergency department for chief complaint of altered mental status. According to patient's family, she is been more altered recently, they are concerned about urinary tract infection. ROS: Complete review of systems is unobtainable at this time secondary to the patient's dementia. PHYSICAL EXAMINATION: Vital signs reviewed, nursing noted reviewed. GENERAL: Elderly female, agitated HEAD: Atraumatic, normocephalic. EYES: Eyes appear normal, conjunctiva are normal. ENT: nares patent, oropharynx clear without exudates. Moist mucous membranes. NECK: Normal range of motion, supple without lymphadenopathy LUNGS: Breath sounds clear to auscultation bilaterally and equal. No wheezes rales or rhonchi. HEART: Heart rate tachycardic, irregular rhythm ABDOMEN: Soft, nontender, normoactive bowel sounds. No rebound, guarding, or rigidity. No masses appreciated. EXTREMITIES: Nontender, good range of motion, no pitting or edema. NEUROLOGICAL: No focal neurological deficits. Moves all extremities spontaneously Motor and sensory grossly intact on exam. PSYCH: Agitated SKIN: Warm, Dry, normal turgor, no rashes or lesions noted on exposed skin MEDICAL DECISION MAKING: Patient seen and examined, vital signs reviewed, she is somewhat agitated at this time, likely sundowning from her dementia, she was in A. fib with RVR, initially looked like a flutter, with a 2-1 AV block, was not improving much after bolus of Cardizem and infusion, this point we decided to give the patient a bolus of digoxin, 500 mcg, which the patient did convert to a normal sinus rhythm afterwards, she then did go back into atrial fibrillation with RVR, but her rate for the most part was less than 120, and then she reconverted back to a sinus rhythm, with a stable blood pressure. Case was discussed with the hospitalist, who accepted the patient under service. Please review detail APC documentation. *Note is created using voice recognition software and may contain spelling, syntax or grammatical errors. 06/03/19 02:48
[2019-06-03] MEDS ORDERED: MAGNESIUM HYDROXIDE SUSP 30 ML UDCUP PO PRN (01:20)
[2019-06-03] MEDS ORDERED: MAG HYDROX/AL HYDROX/SIMETH SUSP 30 ML UDCUP PO PRN (01:20)
[2019-06-03] MEDS ORDERED: DILTIAZEM HCL/D5W 125 MG/125 ML RTUINJ IV PRN (01:20)
[2019-06-03] MEDS ORDERED: DIAZEPAM INJ 10 MG/2 ML DISP.SYRIN IV PRN (01:27)
[2019-06-03 01:37] LABS: ABSOLUTE RETICS # 0.075 10^6/uL (0.028-0.122); RETICULOCYTE COUNT (AUTO) 2.33 % (0.66-2.85)
[2019-06-03 01:57] LABS: IRON(TIBC) 40.9 ug/dL (37-170)
[2019-06-03 01:59] LABS: CREATINE KINASE < 20 U/L (30-135)
--- NOTE | 2019-06-03 05:14 | PDOC H&P ---
History of Present Illness Admission Date/PCP: 06/03/19 01:43 JEANIE CANADA PA-C Patient complains of: Altered mental status History of Present Illness: JOSE DANIEL LONG is a 78 year old female with a past medical history of advanced dementia, atrial fibrillation, congestive heart failure and recurrent UTIs. Patient is brought by family members who are no longer present but had concern for worsening mental status over the last 2 weeks. Patient is sedated following severe agitation, unable to obtain history aside from the chart. Work-up reveals A. fib with RVR she requires restraint, sedation, IV Cardizem and digoxin 0.5 IV results again conversion to normal sinus rhythm. She appears comfortable, is unable to provide history resides with HER-2 daughters. Past Medical History Cardiac Medical History: Reports: Atrial Fibrillation, Hypertension Pulmonary Medical History: Reports: Chronic Obstructive Pulmonary Disease (COPD) Neurological Medical History: Denies: Seizures Endocrine Medical History: Reports: Diabetes Mellitus Type 2 GI Medical History: Reports: Crohn's Disease Psychiatric Medical History: Reports: Dementia, Depression Past Surgical History Past Surgical History: Reports: Orthopedic Surgery Social History Information Source: [facility], [facility] Records Lives with: Family Smoking Status: Unknown if Ever Smoked Frequency of Alcohol Use: None Hx Recreational Drug Use: No Drugs: None Hx Prescription Drug Abuse: No - Advance Directive Resuscitation Status: Full Code Family History Family History: Hypertension Parental Family History Reviewed: Yes Children Family History Reviewed: Yes Sibling(s) Family History Reviewed.: Yes Medication/Allergy Home Medications: Diltiazem HCl [Cartia Xt] 120 mg PO DAILY 04/18/19 Donepezil HCl [Aricept] 5 mg PO QHS 04/18/19 Duloxetine HCl [Cymbalta] 30 mg PO DAILY 04/18/19 Ergocalciferol (Vitamin D2) [Drisdol] 50,000 unit PO MO@0800 04/18/19 Furosemide [Lasix] 20 mg PO DAILY 04/18/19 Glimepiride [Amaryl 1 mg Tablet] 1 mg PO QAM 04/18/19 Lisinopril [Prinivil 40 mg Tablet] 40 mg PO DAILY 04/18/19 Mesalamine [Lialda] 2.4 gm PO DAILY 04/18/19 Metformin HCl 500 mg PO BID 04/18/19 Naproxen [Naprosyn 250 mg Tablet] 250 mg PO DAILYP PRN 04/18/19 Potassium Chloride [Klor-Con 10 Meq Capsule ER] 10 meq PO DAILY 04/18/19 Tizanidine HCl 1 tab PO Q8HP PRN 04/18/19 Albuterol Sulfate [Proair HFA Inhalation Aerosol 8.5 gm MDI] 1 puff IH Q6HP PRN 04/26/19 Buspirone HCl [Buspar 5 mg Tablet] 1 tab PO Q12 04/26/19 Divalproex Sodium [Depakote] 250 mg PO Q12 04/26/19 Risperidone [Risperdal 0.25 Mg Tablet] 0.25 mg PO BID@0800,1600 04/26/19 Tiotropium [place] [Spiriva Handihaler 5 Cap/Kit (18 Mcg/Cap)] 1 puff IH DAILY 04/26/19 Allergies/Adverse Reactions: No Known Allergies Allergy (Verified 04/26/19 10:46) Review of Systems ROS unobtainable: Due to mental status Constitutional: ABSENT: chills, fever(s), headache(s), weight gain, weight loss Eyes: ABSENT: visual disturbances Ears: ABSENT: hearing changes Cardiovascular: ABSENT: chest pain, dyspnea on exertion, edema, orthropnea, palpitations Respiratory: ABSENT: cough, hemoptysis Gastrointestinal: ABSENT: abdominal pain, constipation, diarrhea, hematemesis, hematochezia, nausea, vomiting Genitourinary: ABSENT: dysuria, hematuria Musculoskeletal: ABSENT: joint swelling Integumentary: ABSENT: rash, wounds Neurological: ABSENT: abnormal gait, abnormal speech, confusion, dizziness, focal weakness, syncope Psychiatric: ABSENT: anxiety, depression, homidical ideation, suicidal ideation Endocrine: ABSENT: cold intolerance, heat intolerance, polydipsia, polyuria Hematologic/Lymphatic: ABSENT: easy bleeding, easy bruising Physical Exam Vital Signs: Temp Pulse Resp BP Pulse Ox 98.0 F 112 H 20 141/57 H 96 06/02/19 20:49 06/02/19 20:31 06/03/19 03:01 06/03/19 03:01 06/03/19 00:36 Intake & Output 06/01/19 06/02/19 06/03/19 11:59 11:59 11:59 Intake Total 59 Balance 59 General appearance: PRESENT: no acute distress, thin. ABSENT: severe distress Head exam: PRESENT: atraumatic, normocephalic Eye exam: PRESENT: conjunctiva pink, EOMI, PERRLA. ABSENT: scleral icterus Ear exam: PRESENT: normal external ear exam Mouth exam: PRESENT: dry mucosa, tongue midline Neck exam: ABSENT: carotid bruit, JVD, lymphadenopathy, thyromegaly Respiratory exam: PRESENT: clear to auscultation jasson, crackles, prolonged expiratory phas. ABSENT: rales, rhonchi, wheezes Cardiovascular exam: PRESENT: RRR. ABSENT: diastolic murmur, rubs, systolic murmur Pulses: PRESENT: normal dorsalis pedis pul Vascular exam: PRESENT: normal capillary refill GI/Abdominal exam: PRESENT: normal bowel sounds, soft. ABSENT: distended, guarding, mass, organolmegaly, rebound, tenderness Rectal exam: PRESENT: deferred Extremities exam: PRESENT: full ROM, +1 edema. ABSENT: calf tenderness, clubbing, pedal edema Neurological exam: PRESENT: altered, oriented to person, oriented to place, oriented to time, CN II-XII grossly intact Psychiatric exam: PRESENT: agitated Skin exam: PRESENT: dry, intact, warm. ABSENT: cyanosis, rash Results Laboratory Results: 06/02/19 21:20 06/02/19 21:20 06/02/19 06/02/19 06/02/19 21:20 21:20 21:20 WBC 13.1 H RBC 3.16 L Hgb 8.6 L Hct 26.9 L MCV 85 MCH 27.3 MCHC 32.0 RDW 17.1 H Plt Count 392 Seg Neutrophils % 83.2 H Lymphocytes % 7.7 L Monocytes % 6.5 Eosinophils % 1.6 Basophils % 1.0 Absolute Neutrophils 10.9 H Absolute Lymphocytes 1.0 Absolute Monocytes 0.8 Absolute Eosinophils 0.2 Absolute Basophils 0.1 Retic Count (auto) 2.33 Absolute Retic 0.075 Sodium 139.9 Potassium 4.5 Chloride 106 Carbon Dioxide 28 Anion Gap 6 BUN 22 H Creatinine 0.89 Est GFR ( Amer) > 60 Est GFR (Non-Af Amer) > 60 Glucose 101 Calcium 8.9 Magnesium 1.8 Iron TIBC % Saturation Ferritin Total Bilirubin 0.2 AST 9 L ALT 14 Alkaline Phosphatase 68 Total Protein 5.7 L Albumin 3.0 L Vitamin B12 Folate TSH Urine Color Urine Appearance Urine pH Ur Specific [place] Urine Protein Urine Glucose (UA) Urine Ketones Urine Blood Urine Nitrite Ur Leukocyte Esterase Urine WBC (Auto) Urine RBC (Auto) 06/03/19 06/03/19 06/03/19 00:06 00:30 00:30 WBC RBC Hgb Hct MCV MCH MCHC RDW Plt Count Seg Neutrophils % Lymphocytes % Monocytes % Eosinophils % Basophils % Absolute Neutrophils Absolute Lymphocytes Absolute Monocytes Absolute Eosinophils Absolute Basophils Retic Count (auto) Absolute Retic Sodium Potassium Chloride Carbon Dioxide Anion Gap BUN Creatinine Est GFR ( Amer) Est GFR (Non-Af Amer) Glucose Calcium Magnesium Iron 40.9 TIBC 278 % Saturation 15 Ferritin 49.70 Total Bilirubin AST ALT Alkaline Phosphatase Total Protein Albumin Vitamin B12 223.0 L Folate 10.10 TSH 2.03 Urine Color Cancelled Urine Appearance Cancelled Urine pH Cancelled Ur Specific [place] Cancelled Urine Protein Cancelled Urine Glucose (UA) Cancelled Urine Ketones Cancelled Urine Blood Cancelled Urine Nitrite Cancelled Ur Leukocyte Esterase Cancelled Urine WBC (Auto) Cancelled Urine RBC (Auto) Cancelled 06/02/19 06/03/19 06/03/19 21:20 00:30 00:30 Creatine Kinase < 20 L Troponin I 0.012 NT-Pro-B Natriuret Pep 2350 H Assessment and Plan - Diagnosis (1) Atrial fibrillation with RVR Is this a current diagnosis for this admission?: Yes Plan: Suspecting dementia related delirium prevented scheduled p.o. Cardizem. Continue IV Cardizem, patient not a candidate for chronic anticoagulation secondary to severe dementia with delirium (2) Acute hyperactive delirium due to another medical condition Is this a current diagnosis for this admission?: Yes Plan: No obvious acute occult infection or condition. Follow-up UA, supportive measures (3) Anemia Is this a current diagnosis for this admission?: Yes Plan: Possibly contributing to uncontrolled A. fib, unclear cause, follow-up anemia labs and CBC - Time Time Spent with patient: 25-34 minutes - Inpatient Certification Medical Necessity: Need Close Monitoring Due to Risk of Patient Decompensation
[2019-06-03] MEDS: HEPARIN SOD (PORCINE) 5,000 UNIT/ML 1 ML VIAL SUBCUT SCH ×3 (06:23→21:45)
--- NOTE | 2019-06-03 06:54 | RADIOLOGY REPORT (SQ) ---
EXAM DESCRIPTION: XR CHEST 1 VIEW COMPLETED DATE/TME: 06/02/2019 20:39 CLINICAL HISTORY: 78 years Female, AMS COMPARISON: 04/26/19 NUMBER OF VIEWS/TECHNIQUE: 1/AP FINDINGS: Adequate lung volume, clear parenchyma, normal cardiac silhouette, deformity of the right humeral head, atherosclerosis. IMPRESSION: No acute cardiopulmonary findings.
[2019-06-03] MEDS: NORMAL SALINE 1000 ML 1,000 ML IV PRN ×2 (07:37→12:30)
[2019-06-03 07:47] LABS: ABSOLUTE BASOPHILS # (AUTO) 0.1 10^3/uL (0.0-0.2); ABSOLUTE EOSINOPHILS # (AUTO) 0.2 10^3/uL (0.0-0.6); ABSOLUTE LYMPHOCYTES (AUTO) 0.9 10^3/uL (0.5-4.7); ABSOLUTE MONOCYTES (AUTO) 0.7 10^3/uL (0.1-1.4); ABSOLUTE NEUT (AUTO) 10.7 10^3/uL (1.7-8.2); BASOPHILS % (AUTO) 0.9 % (0-2); EOSINOPHILS % (AUTO) 1.7 % (0-6); HEMATOCRIT 25.8 % (36.0-47.0); HEMOGLOBIN 8.1 g/dL (12.0-15.5); LYMPHOCYTES % (AUTO) 6.8 % (13-45); MEAN CORPUSCULAR HEMOGLOBIN 26.8 pg (27.0-33.4); MEAN CORPUSCULAR HGB CONC 31.5 g/dL (32.0-36.0); MEAN CORPUSCULAR VOLUME 85 fl (80-97); MONOCYTES % (AUTO) 5.6 % (3-13); PLATELET COUNT 341 10^3/uL (150-450); RED BLOOD COUNT 3.03 10^6/uL (3.72-5.28); TOTAL CELLS COUNTED % (AUTO) 100 %; WHITE BLOOD COUNT 12.6 10^3/uL (4.0-10.5)
[2019-06-03 08:02] LABS: ANION GAP 5 (5-19); BLOOD UREA NITROGEN 19 mg/dL (7-20); CALCIUM 8.5 mg/dL (8.4-10.2); CARBON DIOXIDE 29 mmol/L (22-30); CHLORIDE 107 mmol/L (98-107); GLUCOSE 90 mg/dL (75-110); POTASSIUM 4.4 mmol/L (3.6-5.0)
[2019-06-03 08:15] LABS: CREATINE KINASE MB 1.21 ng/mL (<4.55); TROPONIN I 0.012 ng/mL
--- NOTE | 2019-06-03 09:04 | EKG REPORT ---
SEVERITY:- ABNORMAL ECG - SUPRAVENTRICULAR TACHYCARDIA = ATRIAL FLUTTER CONSIDER ANTEROSEPTAL INFARCT REPOLARIZATION ABNORMALITY, RELATED TO FLUTTER WAVES. : Confirmed by: Zay Rader MD 03-Jun-2019 09:03:32
[2019-06-03] MEDS: DOCUSATE SODIUM 100 MG CAPSULE PO SCH ×2 (10:45→18:11)
[2019-06-03 11:34] LABS: APPEARANCE,URINE CLEAR; BILIRUBIN,URINE NEGATIVE (NEGATIVE); COLOR,URINE YELLOW; GLUCOSE, URINE NEGATIVE (NEGATIVE); KETONES,URINE NEGATIVE (NEGATIVE); LEUKOCYTE ESTERASE,URINE NEGATIVE (NEGATIVE); NITRITE,URINE POSITIVE (NEGATIVE); PROTEIN,URINE NEGATIVE (NEGATIVE); URINE SPECIFIC GRAVITY 1.011; UROBILINOGEN,URINE NEGATIVE mg/dL (<2.0)
[2019-06-03] MEDS ORDERED: HALOPERIDOL LACTATE INJ 5 MG/1 ML VIAL IV ONE (13:37)
[2019-06-03] MEDS ORDERED: CYANOCOBALAMIN (VITAMIN B-12) INJ 1000 MCG/1 ML VIAL IM ONE (13:45)
[2019-06-03] MEDS ORDERED: CEFTRIAXONE 1 GM/D5W RTU 1 GM/50 ML RTUPB IV SCH (14:00)
[2019-06-03] MEDS: DIVALPROEX SODIUM 250 MG TABLET.DR PO SCH ×2 (14:50→21:45)
[2019-06-03] MEDS: DILTIAZEM HCL 120 MG CAP.SR.24H PO SCH (14:50)
[2019-06-03 14:58] LABS: CREATINE KINASE MB 1.25 ng/mL (<4.55)
[2019-06-03 15:03] LABS: TROPONIN I < 0.012 ng/mL
[2019-06-03 15:08] LABS: FREE T3 2.51 pg/mL (2.77-5.27); FREE T4 (FREE THYROXINE) 1.1 ng/dL (0.78-2.19)
[2019-06-03] MEDS ORDERED: THIAMINE HCL 100 MG, FOLIC ACID 1 MG in NORMAL SALINE 250 ML IV ONE (15:30)
[2019-06-03] MEDS: MESALAMINE 400 MG CAPSULE.DR PO SCH (18:47)
[2019-06-03 19:51] LABS: CREATINE KINASE MB 1.38 ng/mL (<4.55)
[2019-06-03 19:52] LABS: TROPONIN I < 0.012 ng/mL
[2019-06-03] MEDS: TRAZODONE HCL 50 MG TABLET PO SCH (21:45)
[2019-06-04] MEDS: HEPARIN SOD (PORCINE) 5,000 UNIT/ML 1 ML VIAL SUBCUT SCH ×3 (05:10→21:34)
[2019-06-04] MEDS: DIVALPROEX SODIUM 250 MG TABLET.DR PO SCH ×3 (05:10→21:34)
[2019-06-04 05:12] LABS: ABSOLUTE BASOPHILS # (AUTO) 0.1 10^3/uL (0.0-0.2); ABSOLUTE EOSINOPHILS # (AUTO) 0.2 10^3/uL (0.0-0.6); ABSOLUTE LYMPHOCYTES (AUTO) 0.8 10^3/uL (0.5-4.7); ABSOLUTE MONOCYTES (AUTO) 0.7 10^3/uL (0.1-1.4); ABSOLUTE NEUT (AUTO) 9.2 10^3/uL (1.7-8.2); EOSINOPHILS % (AUTO) 1.5 % (0-6); HEMATOCRIT 25.1 % (36.0-47.0); LYMPHOCYTES % (AUTO) 7.5 % (13-45); MEAN CORPUSCULAR HGB CONC 31.8 g/dL (32.0-36.0); MEAN CORPUSCULAR VOLUME 85 fl (80-97); MONOCYTES % (AUTO) 6.1 % (3-13); PLATELET COUNT 333 10^3/uL (150-450); RED BLOOD COUNT 2.95 10^6/uL (3.72-5.28); SEGMENTED NEUTROPHILS % (AUTO) 83.9 % (42-78); TOTAL CELLS COUNTED % (AUTO) 100 %
[2019-06-04 05:32] LABS: BLOOD UREA NITROGEN 14 mg/dL (7-20); CALCIUM 8.6 mg/dL (8.4-10.2); GLUCOSE 101 mg/dL (75-110); POTASSIUM 4.5 mmol/L (3.6-5.0)
[2019-06-04 05:38] LABS: CARBON DIOXIDE 29 mmol/L (22-30); CHLORIDE 107 mmol/L (98-107)
[2019-06-04 06:01] LABS: ANION GAP 4 (5-19)
[2019-06-04] MEDS: DOCUSATE SODIUM 100 MG CAPSULE PO SCH ×2 (09:45→18:11)
[2019-06-04] MEDS: DILTIAZEM HCL 120 MG CAP.SR.24H PO SCH (09:45)
[2019-06-04] MEDS: DULOXETINE HCL 30 MG CAPSULE.DR PO SCH (09:45)
[2019-06-04] MEDS: MESALAMINE 400 MG CAPSULE.DR PO SCH ×3 (09:48→19:27)
[2019-06-04] MEDS: CYANOCOBALAMIN (VITAMIN B-12) INJ 1000 MCG/1 ML VIAL IM SCH (09:48)
[2019-06-04] MEDS ORDERED: CEFTRIAXONE SODIUM 1,000 MG in DEXTROSE 5%-WATER 50 ML IV SCH (10:00)
--- NOTE | 2019-06-04 10:33 | PDOC PROGRESS REPORT ---
Subjective Progress Note for:: 06/04/19 Subjective:: JOSE DANIEL LONG is a 78 year old female with a past medical history of advanced dementia, atrial fibrillation, congestive heart failure and recurrent UTIs. Patient is brought by family members who are no longer present but had concern for worsening mental status over the last 2 weeks. Patient is sedated following severe agitation, unable to obtain history aside from the chart. Work-up reveals A. fib with RVR she requires restraint, sedation, IV Cardizem and digox in 0.5 IV results again conversion to normal sinus rhythm. She appears comfortable, is unable to provide history resides with her 2 daughters. 06/04/2019. Patient is delirious, actively hallucinating, when asked how she is doing she is stating that she is talking to her Max. She is awake and c ooperative with physical examination, denies any fever, chills, nausea, vomiting, diarrhea, constipation or any urinary symptoms. Reason For Visit: ATRIAL FLUTTER,ATRIAL FIBRILLATION WITH RVR,ACUTE Physical Exam Vital Signs: Temp Pulse Resp BP Pulse Ox 97.8 F 89 20 149/73 H 98 06/03/19 19:39 06/04/19 07:00 06/03/19 19:39 06/03/19 19:39 06/04/19 04:05 Intake & Output 06/03/19 06/04/19 06/05/19 06:59 06:59 06:59 Intake Total 59 1794.2 120 Balance 59 1794.2 120 Weight 65.77 kg 70.2 kg General appearance: PRESENT: no acute distress, well-developed, well-nourished Head exam: PRESENT: atraumatic, normocephalic Respiratory exam: PRESENT: clear to auscultation jasson. ABSENT: rales, rhonchi, wheezes Cardiovascular exam: PRESENT: RRR. ABSENT: diastolic murmur, rubs, systolic murmur GI/Abdominal exam: PRESENT: normal bowel sounds, soft. ABSENT: distended, guarding, mass, organolmegaly, rebound, tenderness Extremities exam: PRESENT: full ROM. ABSENT: calf tenderness, clubbing, pedal edema Neurological exam: PRESENT: altered Results Laboratory Results: 06/04/19 04:42 06/04/19 04:42 06/03/19 06/03/19 06/03/19 11:23 13:40 13:40 WBC RBC Hgb Hct MCV MCH MCHC RDW Plt Count Seg Neutrophils % Lymphocytes % Monocytes % Eosinophils % Basophils % Absolute Neutrophils Absolute Lymphocytes Absolute Monocytes Absolute Eosinophils Absolute Basophils Sodium Potassium Chloride Carbon Dioxide Anion Gap BUN Creatinine Est GFR ( Amer) Est GFR (Non-Af Amer) Glucose Calcium TSH 1.46 Free T4 1.10 Free T3 pg/mL 2.51 L Urine Color YELLOW Urine Appearance CLEAR Urine pH 6.0 Ur Specific [place] 1.011 Urine Protein NEGATIVE Urine Glucose (UA) NEGATIVE Urine Ketones NEGATIVE Urine Blood NEGATIVE Urine Nitrite POSITIVE H Ur Leukocyte Esterase NEGATIVE Urine WBC (Auto) 2 06/04/19 06/04/19 04:42 04:42 WBC 11.0 H RBC 2.95 L Hgb 8.0 L Hct 25.1 L MCV 85 MCH 27.0 MCHC 31.8 L RDW 17.0 H Plt Count 333 Seg Neutrophils % 83.9 H Lymphocytes % 7.5 L Monocytes % 6.1 Eosinophils % 1.5 Basophils % 1.0 Absolute Neutrophils 9.2 H Absolute Lymphocytes 0.8 Absolute Monocytes 0.7 Absolute Eosinophils 0.2 Absolute Basophils 0.1 Sodium 139.7 Potassium 4.5 Chloride 107 Carbon Dioxide 29 Anion Gap 4 L BUN 14 Creatinine 0.68 Est GFR ( Amer) > 60 Est GFR (Non-Af Amer) > 60 Glucose 101 Calcium 8.6 TSH Free T4 Free T3 pg/mL Urine Color Urine Appearance Urine pH Ur Specific [place] Urine Protein Urine Glucose (UA) Urine Ketones Urine Blood Urine Nitrite Ur Leukocyte Esterase Urine WBC (Auto) 06/02/19 06/03/19 06/03/19 21:20 00:30 00:30 Creatine Kinase < 20 L CK-MB (CK-2) Troponin I 0.012 NT-Pro-B Natriuret Pep 2350 H 06/03/19 06/03/19 06/03/19 07:33 13:40 13:40 Creatine Kinase 22 L CK-MB (CK-2) 1.21 1.25 Troponin I 0.012 < 0.012 NT-Pro-B Natriuret Pep 06/03/19 06/03/19 19:12 19:12 Creatine Kinase 24 L CK-MB (CK-2) 1.38 Troponin I < 0.012 NT-Pro-B Natriuret Pep Impressions: Chest X-Ray 06/02/19 20:39 IMPRESSION: No acute cardiopulmonary findings. Assessment and Plan - Diagnosis (1) Acute encephalopathy Is this a current diagnosis for this admission?: Yes Plan: Metabolic encephalopathy due to underlying UTI complicated by underlying dementia. Continue treatment for underlying UTI. Restart home meds. Seizure, fall, aspiration precautions. (2) Complicated UTI (urinary tract infection) Is this a current diagnosis for this admission?: Yes Plan: Likely due to gram-negative rods. History of recurrent UTIs. Review of chart shows patient has had UTI due to Pseudomonas and E. coli. Urine culture positive for gram-negative rods. Pending sensitivity. Day 2 IV antibiotics. Received 1 dose of ceftriaxone. DC ceftriaxone. Day 1 IV levofloxacin. Notes: Due to the fact that patient has had history of UTI due to Pseudomonas we will switch to levofloxacin to cover for Pseudomonas. (3) Atrial fibrillation with RVR Is this a current diagnosis for this admission?: Yes Plan: Rate controlled. Not a candidate for anticoagulation. Initially was placed on Cardizem drip. Switch to p.o. Cardizem. Continue p.o. Cardizem. Monitor vitals. (4) COPD (chronic obstructive pulmonary disease) Qualifiers: Emphysema type: unspecified Is this a current diagnosis for this admission?: Yes Plan: Currently not exacerbated. Continue duo nebs, Proventil oxygen, PRN BiPAP, LABA's/LAMA's. Outpatient pulmonary follow-up. (5) Crohns disease Is this a current diagnosis for this admission?: Yes Plan: Restart home meds. Outpatient GI follow-up. 12/31/2018. Colonoscopy by Dr. Mcgarry. Positive for internal hemorrhoids and terminal ileitis. Biopsy positive for mild chronic inflammation, granulation tissue pyloric gland metaplasia. Negative for dysplasia or malignancy. (6) Dementia Qualifiers: Dementia behavioral disturbance: with behavioral disturbance Is this a current diagnosis for this admission?: Yes Plan: Restart home meds. Fall, aspiration, seizure precautions. Supportive measures. TSH, T3, T4 WNL. Low B12 4. B12 250. Will start on B12 injections. (7) Diabetes mellitus Qualifiers: Diabetes mellitus type: type 2 Is this a current diagnosis for this admission?: Yes Plan: Controlled. 03/17/2019 A1c 5.9. Takes glyburide as outpatient. Diabetic diet, sliding scale insulin, Accu-Chek, hypoglycemia protocol, adjust dosage as needed. Restart home meds upon discharge. Outpatient PCP follow-up. (8) Hypertension Is this a current diagnosis for this admission?: Yes Plan: Not optimized. Restart home meds. PRN hydralazine. Adjust dosage as needed. Outpatient PCP follow-up. (9) Anemia Is this a current diagnosis for this admission?: Yes Plan: Chronic. H&H stable. This is possibly due to underlying Crohn's and internal hemorrhoids. 12/31/2018. Colonoscopy by Dr. Mcgarry. Positive for internal hemorrhoids and terminal ileitis. Biopsy positive for mild chronic inflammation, granulation tissue pyloric gland metaplasia. Negative for dysplasia or malignancy. Monitor H&H, supportive transfusions, restart treatment for underlying Crohn's disease. (10) Vitamin B12 deficiency Is this a current diagnosis for this admission?: Yes Plan: Likely due to defective absorption. Patient has Crohn's disease with terminal ileitis. B12 deficiency may have had to contribute to her dementia. Continue daily B12 injections. To transition to p.o. upon discharge. Outpatient PCP follow-up. 12/31/2018. Colonoscopy by Dr. Mcgarry. Positive for internal hemorrhoids and terminal ileitis. Biopsy positive for mild chronic inflammation, granulation tissue pyloric gland metaplasia. Negative for dysplasia or malignancy.
[2019-06-04] MEDS ORDERED: LEVOFLOXACIN 500 MG/D5W RTU 500 MG/100 ML RTUPB IV SCH (12:00)
[2019-06-04 12:55] LABS: ARTERIAL BLOOD BASE EXCESS 2.2 mmol/L; ARTERIAL BLOOD H2CO3 1.38 mmol/L (1.05-1.35); ARTERIAL BLOOD HCO3 27.4 mmol/L (20-24); ARTERIAL BLOOD O2 SATURATION 96.6 % (94-98); ARTERIAL BLOOD PCO2 45.7 mmHg (35-45); ARTERIAL BLOOD PO2 87.5 mmHg (80-100); ARTERIAL BLOOD TOTAL CO2 28.8 mmol/L (21-25)
[2019-06-04 12:57] LABS: ARTERIAL BLOOD FIO2 28%
[2019-06-04] MEDS: TIOTROPIUM BROMIDE DPI 5 CAP/KIT (18 MCG/CAP) IH SCH (15:02)
[2019-06-04] MEDS: RISPERIDONE 0.25 MG TABLET PO SCH (15:10)
[2019-06-04] MEDS: LISINOPRIL 10 MG TABLET PO SCH (15:11)
[2019-06-04] MEDS ORDERED: DIPHENHYDRAMINE HCL 25 MG CAPSULE PO ONE (17:00)
[2019-06-04] MEDS: HALOPERIDOL LACTATE INJ 5 MG/1 ML VIAL IV PRN (20:48)
[2019-06-04] MEDS: TRAZODONE HCL 50 MG TABLET PO SCH (21:34)
[2019-06-04] MEDS: DONEPEZIL HCL 5 MG TABLET PO SCH (21:37)
[2019-06-05] MEDS: DIVALPROEX SODIUM 250 MG TABLET.DR PO SCH ×3 (05:44→21:30)
[2019-06-05] MEDS: HEPARIN SOD (PORCINE) 5,000 UNIT/ML 1 ML VIAL SUBCUT SCH ×3 (05:44→21:30)
--- NOTE | 2019-06-05 08:00 | PDOC PROGRESS REPORT ---
Subjective Progress Note for:: 06/05/19 Subjective:: JOSE DANIEL LONG is a 78 year old female with a past medical history of advanced dementia, atrial fibrillation, congestive heart failure and recurrent UTIs. Patient is brought by family members who are no longer present but had concern for worsening mental status over the last 2 weeks. Patient is sedated following severe agitation, unable to obtain history aside from the chart. Work-up reveals A. fib with RVR she requires restraint, sedation, IV Cardizem and digox in 0.5 IV results again conversion to normal sinus rhythm. She appears comfortable, is unable to provide history resides with her 2 daughters. 06/04/2019. Patient is delirious, actively hallucinating, when asked how she is doing she is stating that she is talking to her Max. She is awake and c ooperative with physical examination, denies any fever, chills, nausea, vomiting, diarrhea, constipation or any urinary symptoms. 06/05/2019. Overnight patient became agitated and was given Haldol after which she has not been agitated, calm. On my encounter patient is sleeping, easily arousable, oriented to self and place, denies any fever, chills, nausea, vomiting, diarrhea, constipation or any urinary symptoms. Reason For Visit: ATRIAL FLUTTER,ATRIAL FIBRILLATION WITH RVR,ACUTE Physical Exam Vital Signs: Temp Pulse Resp BP Pulse Ox 97.3 F 70 24 H 147/85 H 93 06/05/19 06:03 06/05/19 07:00 06/04/19 19:50 06/05/19 06:03 06/05/19 06:03 Intake & Output 06/04/19 06/05/19 06/06/19 06:59 06:59 06:59 Intake Total 1794.2 940 Balance 1794.2 940 Weight 70.2 kg 67.7 kg General appearance: PRESENT: no acute distress, well-developed, well-nourished Head exam: PRESENT: atraumatic, normocephalic Respiratory exam: PRESENT: clear to auscultation jasson. ABSENT: rales, rhonchi, wheezes Cardiovascular exam: PRESENT: RRR. ABSENT: diastolic murmur, rubs, systolic murmur GI/Abdominal exam: PRESENT: normal bowel sounds, soft. ABSENT: distended, guarding, mass, organolmegaly, rebound, tenderness Extremities exam: PRESENT: full ROM. ABSENT: calf tenderness, clubbing, pedal edema Neurological exam: PRESENT: alert, awake, oriented to person, oriented to place, CN II-XII grossly intact. ABSENT: motor sensory deficit Results Laboratory Results: 06/04/19 04:42 06/04/19 04:42 06/04/19 12:38 Carbonic Acid 1.38 H HCO3/H2CO3 Ratio 19:1 ABG pH 7.40 ABG pCO2 45.7 H ABG pO2 87.5 ABG HCO3 27.4 H ABG O2 Saturation 96.6 ABG Base Excess 2.2 FiO2 28% 06/02/19 06/03/19 06/03/19 21:20 00:30 00:30 Creatine Kinase < 20 L CK-MB (CK-2) Troponin I 0.012 NT-Pro-B Natriuret Pep 2350 H 06/03/19 06/03/19 06/03/19 07:33 13:40 13:40 Creatine Kinase 22 L CK-MB (CK-2) 1.21 1.25 Troponin I 0.012 < 0.012 NT-Pro-B Natriuret Pep 06/03/19 06/03/19 19:12 19:12 Creatine Kinase 24 L CK-MB (CK-2) 1.38 Troponin I < 0.012 NT-Pro-B Natriuret Pep Impressions: Chest X-Ray 06/02/19 20:39 IMPRESSION: No acute cardiopulmonary findings. Assessment and Plan - Diagnosis (1) Acute encephalopathy Is this a current diagnosis for this admission?: Yes Plan: Improving. Metabolic encephalopathy due to underlying UTI complicated by underlying dementia. Continue treatment for underlying UTI. Restart home meds. Seizure, fall, aspiration precautions. (2) Complicated UTI (urinary tract infection) Is this a current diagnosis for this admission?: Yes Plan: Likely due to gram-negative rods. History of recurrent UTIs. Review of chart shows patient has had UTI due to Pseudomonas and E. coli. Urine culture positive for gram-negative rods. Pending sensitivity. Day 3 IV antibiotics. Received 1 dose of ceftriaxone. DC ceftriaxone. Received 1 day of levofloxacin. Had to be DC'd because patient started complaining of itching. Cefepime day 1. Notes: Due to the fact that patient has had history of UTI due to Pseudomonas we will switch to cefepime to cover for Pseudomonas. (3) Atrial fibrillation with RVR Is this a current diagnosis for this admission?: Yes Plan: Rate controlled. Not a candidate for anticoagulation. Initially was placed on Cardizem drip. Switch to p.o. Cardizem. Continue p.o. Cardizem. Monitor vitals. (4) COPD (chronic obstructive pulmonary disease) Qualifiers: Emphysema type: unspecified Is this a current diagnosis for this admission?: Yes Plan: Currently not exacerbated. Continue duo nebs, Proventil oxygen, PRN BiPAP, LABA's/LAMA's. Outpatient pulmonary follow-up. (5) Crohns disease Is this a current diagnosis for this admission?: Yes Plan: Restart home meds. Outpatient GI follow-up. 12/31/2018. Colonoscopy by Dr. Mcgarry. Positive for internal hemorrhoids and terminal ileitis. Biopsy positive for mild chronic inflammation, granulation tissue pyloric gland metaplasia. Negative for dysplasia or malignancy. (6) Dementia Qualifiers: Dementia behavioral disturbance: with behavioral disturbance Is this a current diagnosis for this admission?: Yes Plan: Restart home meds. Fall, aspiration, seizure precautions. Supportive measures. TSH, T3, T4 WNL. Low B12 4. B12 250. Day 2 subcutaneous B12 injection. (7) Diabetes mellitus Qualifiers: Diabetes mellitus type: type 2 Is this a current diagnosis for this admission?: Yes Plan: Controlled. 03/17/2019 A1c 5.9. Takes glyburide as outpatient. Diabetic diet, sliding scale insulin, Accu-Chek, hypoglycemia protocol, adjust dosage as needed. Restart home meds upon discharge. Outpatient PCP follow-up. (8) Hypertension Is this a current diagnosis for this admission?: Yes Plan: Not optimized. Restart home meds. PRN hydralazine. Adjust dosage as needed. Outpatient PCP follow-up. (9) Anemia Is this a current diagnosis for this admission?: Yes Plan: Chronic. H&H stable. This is possibly due to underlying Crohn's and internal hemorrhoids. 12/31/2018. Colonoscopy by Dr. Mcgarry. Positive for internal hemorrhoids and terminal ileitis. Biopsy positive for mild chronic inflammation, granulation tissue pyloric gland metaplasia. Negative for dysplasia or malignancy. Monitor H&H, supportive transfusions, restart treatment for underlying Crohn's disease. (10) Vitamin B12 deficiency Is this a current diagnosis for this admission?: Yes Plan: Likely due to defective absorption. Patient has Crohn's disease with terminal ileitis. B12 deficiency may have had to contribute to her dementia. Day #2 subcutaneous B12 injection. Continue daily B12 injections. To transition to p.o. upon discharge. Outpatient PCP follow-up. 12/31/2018. Colonoscopy by Dr. Mcgarry. Positive for internal hemorrhoids and terminal ileitis. Biopsy positive for mild chronic inflammation, granulation tissue pyloric gland metaplasia. Negative for dysplasia or malignancy.
[2019-06-05] MEDS: CEFEPIME 1 GM/D5W RTU 1 GM/50 ML RTUPB IV SCH ×2 (09:30→21:29)
[2019-06-05] MEDS: CYANOCOBALAMIN (VITAMIN B-12) INJ 1000 MCG/1 ML VIAL IM SCH (09:31)
[2019-06-05] MEDS: DILTIAZEM HCL 120 MG CAP.SR.24H PO SCH (09:31)
[2019-06-05] MEDS: LISINOPRIL 10 MG TABLET PO SCH (09:31)
[2019-06-05] MEDS: DOCUSATE SODIUM 100 MG CAPSULE PO SCH ×2 (09:31→17:35)
[2019-06-05] MEDS: MESALAMINE 400 MG CAPSULE.DR PO SCH ×3 (09:31→17:35)
[2019-06-05] MEDS: TIOTROPIUM BROMIDE DPI 5 CAP/KIT (18 MCG/CAP) IH SCH (09:32)
[2019-06-05] MEDS: DULOXETINE HCL 30 MG CAPSULE.DR PO SCH (09:32)
[2019-06-05] MEDS: RISPERIDONE 0.25 MG TABLET PO SCH ×2 (09:35→17:35)
[2019-06-05] MEDS: ACETAMINOPHEN 325 MG TABLET PO PRN (09:46)
[2019-06-05] MEDS: HALOPERIDOL LACTATE INJ 5 MG/1 ML VIAL IV PRN ×2 (13:29→21:29)
[2019-06-05] MEDS: AMLODIPINE BESYLATE 5 MG TABLET PO SCH (13:29)
[2019-06-05] MEDS: HYDRALAZINE HCL INJ/PF 20 MG/1 ML SDV IV PRN (20:39)
[2019-06-05] MEDS: DONEPEZIL HCL 5 MG TABLET PO SCH (21:30)
[2019-06-05] MEDS: TRAZODONE HCL 50 MG TABLET PO SCH (21:30)
[2019-06-06 04:49] LABS: ABSOLUTE BASOPHILS # (AUTO) 0.1 10^3/uL (0.0-0.2); ABSOLUTE EOSINOPHILS # (AUTO) 0.1 10^3/uL (0.0-0.6); ABSOLUTE LYMPHOCYTES (AUTO) 0.9 10^3/uL (0.5-4.7); ABSOLUTE MONOCYTES (AUTO) 0.6 10^3/uL (0.1-1.4); BASOPHILS % (AUTO) 0.6 % (0-2); EOSINOPHILS % (AUTO) 1.3 % (0-6); HEMATOCRIT 23.4 % (36.0-47.0); LYMPHOCYTES % (AUTO) 10.3 % (13-45); MEAN CORPUSCULAR HEMOGLOBIN 27.2 pg (27.0-33.4); MEAN CORPUSCULAR HGB CONC 32.3 g/dL (32.0-36.0); MEAN CORPUSCULAR VOLUME 84 fl (80-97); MONOCYTES % (AUTO) 6.5 % (3-13); PLATELET COUNT 293 10^3/uL (150-450); RED BLOOD COUNT 2.79 10^6/uL (3.72-5.28); RED CELL DISTRIBUTION WIDTH 17.1 % (11.5-14.0); SEGMENTED NEUTROPHILS % (AUTO) 81.3 % (42-78); TOTAL CELLS COUNTED % (AUTO) 100 %; WHITE BLOOD COUNT 8.6 10^3/uL (4.0-10.5)
[2019-06-06 05:14] LABS: HEMOGLOBIN 7.6 g/dL (12.0-15.5)
[2019-06-06] MEDS: DIVALPROEX SODIUM 250 MG TABLET.DR PO SCH ×3 (06:31→22:18)
[2019-06-06] MEDS: HEPARIN SOD (PORCINE) 5,000 UNIT/ML 1 ML VIAL SUBCUT SCH ×3 (06:32→22:26)
[2019-06-06] MEDS: DILTIAZEM HCL 120 MG CAP.SR.24H PO SCH (09:28)
[2019-06-06] MEDS: AMLODIPINE BESYLATE 5 MG TABLET PO SCH (09:28)
[2019-06-06] MEDS: DULOXETINE HCL 30 MG CAPSULE.DR PO SCH (09:28)
[2019-06-06] MEDS: DOCUSATE SODIUM 100 MG CAPSULE PO SCH ×2 (09:28→17:41)
[2019-06-06] MEDS: RISPERIDONE 0.25 MG TABLET PO SCH ×2 (09:28→17:46)
[2019-06-06] MEDS: CEFEPIME 1 GM/D5W RTU 1 GM/50 ML RTUPB IV SCH ×2 (09:28→22:27)
[2019-06-06] MEDS: LISINOPRIL 10 MG TABLET PO SCH (09:28)
[2019-06-06] MEDS: MESALAMINE 400 MG CAPSULE.DR PO SCH ×3 (09:29→17:41)
[2019-06-06] MEDS: TIOTROPIUM BROMIDE DPI 5 CAP/KIT (18 MCG/CAP) IH SCH (09:29)
[2019-06-06] MEDS: CYANOCOBALAMIN (VITAMIN B-12) INJ 1000 MCG/1 ML VIAL IM SCH (09:30)
--- NOTE | 2019-06-06 10:35 | PDOC PROGRESS REPORT ---
Subjective Progress Note for:: 06/06/19 Subjective:: JOSE DANIEL LONG is a 78 year old female with a past medical history of advanced dementia, atrial fibrillation, congestive heart failure and recurrent UTIs. Patient is brought by family members who are no longer present but had concern for worsening mental status over the last 2 weeks. Patient is sedated following severe agitation, unable to obtain history aside from the chart. Work-up reveals A. fib with RVR she requires restraint, sedation, IV Cardizem and digox in 0.5 IV results again conversion to normal sinus rhythm. She appears comfortable, is unable to provide history resides with her 2 daughters. 06/04/2019. Patient is delirious, actively hallucinating, when asked how she is doing she is stating that she is talking to her Max. She is awake and c ooperative with physical examination, denies any fever, chills, nausea, vomiting, diarrhea, constipation or any urinary symptoms. 06/05/2019. Overnight patient became agitated and was given Haldol after which she has not been agitated, calm. On my encounter patient is sleeping, easily arousable, oriented to self and place, denies any fever, chills, nausea, vomiting, diarrhea, constipation or any urinary symptoms. 06/06/2019. Patient sleeping comfortably, easily arousable, overnight agitated a nd we collide probably due to sundowning. Received Haldol. Oriented to self. Denies any fever, chills, nausea, vomiting, diarrhea, constipation or any urinary symptoms. Pending placement. Reason For Visit: ATRIAL FLUTTER,ATRIAL FIBRILLATION WITH RVR,ACUTE Physical Exam Vital Signs: Temp Pulse Resp BP Pulse Ox 97.4 F 89 20 129/83 H 100 06/06/19 03:41 06/06/19 03:41 06/06/19 03:41 06/06/19 03:41 06/06/19 03:41 Intake & Output 06/05/19 06/06/19 06/07/19 06:59 06:59 06:59 Intake Total 940 100 Balance 940 100 Weight 67.7 kg 67.9 kg General appearance: PRESENT: no acute distress, well-developed, well-nourished Head exam: PRESENT: atraumatic, normocephalic Respiratory exam: PRESENT: clear to auscultation jasson. ABSENT: rales, rhonchi, wheezes Cardiovascular exam: PRESENT: RRR. ABSENT: diastolic murmur, rubs, systolic murmur Pulses: PRESENT: normal dorsalis pedis pul Extremities exam: PRESENT: full ROM. ABSENT: calf tenderness, clubbing, pedal edema Neurological exam: PRESENT: alert, awake, oriented to person, CN II-XII grossly intact. ABSENT: motor sensory deficit Results Laboratory Results: 06/06/19 03:54 06/04/19 04:42 06/06/19 03:54 WBC 8.6 RBC 2.79 L Hgb 7.6 L Hct 23.4 L MCV 84 MCH 27.2 MCHC 32.3 RDW 17.1 H Plt Count 293 Seg Neutrophils % 81.3 H Lymphocytes % 10.3 L Monocytes % 6.5 Eosinophils % 1.3 Basophils % 0.6 Absolute Neutrophils 7.0 Absolute Lymphocytes 0.9 Absolute Monocytes 0.6 Absolute Eosinophils 0.1 Absolute Basophils 0.1 06/03/19 00:06 Catheterized Urine Urine Culture - Final Klebsiella Pneumoniae 06/02/19 06/03/19 06/03/19 21:20 00:30 00:30 Creatine Kinase < 20 L CK-MB (CK-2) Troponin I 0.012 NT-Pro-B Natriuret Pep 2350 H 06/03/19 06/03/19 06/03/19 07:33 13:40 13:40 Creatine Kinase 22 L CK-MB (CK-2) 1.21 1.25 Troponin I 0.012 < 0.012 NT-Pro-B Natriuret Pep 06/03/19 06/03/19 19:12 19:12 Creatine Kinase 24 L CK-MB (CK-2) 1.38 Troponin I < 0.012 NT-Pro-B Natriuret Pep Impressions: Chest X-Ray 06/02/19 20:39 IMPRESSION: No acute cardiopulmonary findings. Assessment and Plan - Diagnosis (1) Acute encephalopathy Is this a current diagnosis for this admission?: Yes Plan: Improving. Metabolic encephalopathy due to underlying UTI complicated by underlying dementia. Continue treatment for underlying UTI. Restart home meds. Seizure, fall, aspir ation precautions. (2) Complicated UTI (urinary tract infection) Is this a current diagnosis for this admission?: Yes Plan: Urine culture positive for Klebsiella pansensitive. History of recurrent UTIs. Review of chart shows patient has had UTI due to Pseudomonas and E. coli. Culture positive for Klebsiella pansensitive. Day 4/7 antibiotics. Day 1 p.o. levofloxacin. Received 3 days of IV antibiotics. Received 1 dose of ceftriaxone. DC ceftriaxone. Received 1 day of levofloxacin. Had to be DC'd because patient started complaining of itching. Cefepime day 1. Switch to p.o. antibiotics. Patient pending for placement. (3) Atrial fibrillation with RVR Is this a current diagnosis for this admission?: Yes Plan: Rate controlled. Not a candidate for anticoagulation. Initially was placed on Cardizem drip. Switch to p.o. Cardizem. Continue p.o. Cardizem. Monitor vitals. (4) COPD (chronic obstructive pulmonary disease) Qualifiers: Emphysema type: unspecified Is this a current diagnosis for this admission?: Yes Plan: Currently not exacerbated. Continue duo nebs, Proventil oxygen, PRN BiPAP, LABA's/LAMA's. Outpatient pulmonary follow-up. (5) Crohns disease Is this a current diagnosis for this admission?: Yes Plan: Restart home meds. Outpatient GI follow-up. 12/31/2018. Colonoscopy by Dr. Mcgarry. Positive for internal hemorrhoids and terminal ileitis. Biopsy positive for mild chronic inflammation, granulation tissue pyloric gland metaplasia. Negative for dysplasia or malignancy. (6) Dementia Qualifiers: Dementia behavioral disturbance: with behavioral disturbance Is this a current diagnosis for this admission?: Yes Plan: Restart home meds. Fall, aspiration, seizure precautions. Supportive measures. TSH, T3, T4 WNL. Low B12 4. B12 250. Day 2 subcutaneous B12 injection. (7) Diabetes mellitus Qualifiers: Diabetes mellitus type: type 2 Is this a current diagnosis for this admission?: Yes Plan: Controlled. 03/17/2019 A1c 5.9. Takes glyburide as outpatient. Diabetic diet, sliding scale insulin, Accu-Chek, hypoglycemia protocol, adjust dosage as needed. Restart home meds upon discharge. Outpatient PCP follow-up. (8) Hypertension Is this a current diagnosis for this admission?: Yes Plan: Not optimized. Restart home meds. PRN hydralazine. Adjust dosage as needed. Outpatient PCP follow-up. (9) Anemia Is this a current diagnosis for this admission?: Yes Plan: Chronic. H&H stable. This is possibly due to underlying Crohn's and internal hemorrhoids. 12/31/2018. Colonoscopy by Dr. Mcgarry. Positive for internal hemorrhoids and terminal ileitis. Biopsy positive for mild chronic inflammation, granulation tissue pyloric gland metaplasia. Negative for dysplasia or malignancy. Monitor H&H, supportive transfusions, restart treatment for underlying Crohn's disease. (10) Vitamin B12 deficiency Is this a current diagnosis for this admission?: Yes Plan: Likely due to defective absorption. Patient has Crohn's disease with terminal ileitis. B12 deficiency may have had to contribute to her dementia. Day #3 subcutaneous B12 injection. Continue daily B12 injections. To transition to p.o. upon discharge. Outpatient PCP follow-up. 12/31/2018. Colonoscopy by Dr. Mcgarry. Positive for internal hemorrhoids and terminal ileitis. Biopsy positive for mild chronic inflammation, granulation tissue pyloric gland metaplasia. Negative for dysplasia or malignancy.
[2019-06-06] MEDS: HALOPERIDOL LACTATE INJ 5 MG/1 ML VIAL IV PRN (20:23)
[2019-06-06] MEDS: DONEPEZIL HCL 5 MG TABLET PO SCH (22:18)
[2019-06-06] MEDS: TRAZODONE HCL 50 MG TABLET PO SCH (22:18)
[2019-06-07] MEDS: HYDRALAZINE HCL INJ/PF 20 MG/1 ML SDV IV PRN (03:51)
[2019-06-07] MEDS: HALOPERIDOL LACTATE INJ 5 MG/1 ML VIAL IV PRN ×2 (04:21→17:53)
[2019-06-07] MEDS: DIVALPROEX SODIUM 250 MG TABLET.DR PO SCH ×3 (05:44→23:30)
[2019-06-07] MEDS: HEPARIN SOD (PORCINE) 5,000 UNIT/ML 1 ML VIAL SUBCUT SCH ×3 (05:45→23:30)
[2019-06-07] MEDS: RISPERIDONE 0.25 MG TABLET PO SCH ×2 (08:25→18:13)
[2019-06-07] MEDS: CEFEPIME 1 GM/D5W RTU 1 GM/50 ML RTUPB IV SCH (09:54)
[2019-06-07] MEDS: CYANOCOBALAMIN (VITAMIN B-12) INJ 1000 MCG/1 ML VIAL IM SCH (09:57)
[2019-06-07] MEDS: AMLODIPINE BESYLATE 5 MG TABLET PO SCH (09:58)
[2019-06-07] MEDS: DOCUSATE SODIUM 100 MG CAPSULE PO SCH ×2 (09:58→17:48)
[2019-06-07] MEDS: DILTIAZEM HCL 120 MG CAP.SR.24H PO SCH (09:59)
[2019-06-07] MEDS: LISINOPRIL 10 MG TABLET PO SCH (09:59)
[2019-06-07] MEDS: DULOXETINE HCL 30 MG CAPSULE.DR PO SCH (10:00)
[2019-06-07] MEDS: TIOTROPIUM BROMIDE DPI 5 CAP/KIT (18 MCG/CAP) IH SCH (10:01)
[2019-06-07] MEDS: MESALAMINE 400 MG CAPSULE.DR PO SCH ×3 (10:03→17:48)
[2019-06-07] MEDS: ACETAMINOPHEN 325 MG TABLET PO PRN (10:26)
[2019-06-07] MEDS: LEVOFLOXACIN 500 MG TABLET PO SCH (13:06)
[2019-06-07] MEDS ORDERED: GLUCAGON,HUMAN RECOMB 1 MG INJ IM PRN (18:30)
[2019-06-07] MEDS ORDERED: DEXTROSE 50%-WATER 25 GM/50 ML DISP.SYRIN IV PRN ×2 (18:30)
[2019-06-07] MEDS ORDERED: DEXTROSE 40% GEL 15 GM TUBE PO PRN ×2 (18:30)
--- NOTE | 2019-06-07 18:32 | PDOC PROGRESS REPORT ---
Subjective Progress Note for:: 06/07/19 Subjective:: JOSE DANIEL LONG is a 78 year old female with a past medical history of advanced dementia, atrial fibrillation, congestive heart failure and recurrent UTIs. Patient is brought by family members who are no longer present but had concern for worsening mental status over the last 2 weeks. Patient is sedated following severe agitation, unable to obtain history aside from the chart. Work-up reveals A. fib with RVR she requires restraint, sedation, IV Cardizem and digox in 0.5 IV results again conversion to normal sinus rhythm. She appears comfortable, is unable to provide history resides with her 2 daughters. 06/04/2019. Patient is delirious, actively hallucinating, when asked how she is doing she is stating that she is talking to her Max. She is awake and c ooperative with physical examination, denies any fever, chills, nausea, vomiting, diarrhea, constipation or any urinary symptoms. 06/05/2019. Overnight patient became agitated and was given Haldol after which she has not been agitated, calm. On my encounter patient is sleeping, easily arousable, oriented to self and place, denies any fever, chills, nausea, vomiting, diarrhea, constipation or any urinary symptoms. 06/06/2019. Patient sleeping comfortably, easily arousable, overnight agitated a nd we collide probably due to sundowning. Received Haldol. Oriented to self. Denies any fever, chills, nausea, vomiting, diarrhea, constipation or any urinary symptoms. Pending placement. Reason For Visit: ATRIAL FLUTTER,ATRIAL FIBRILLATION WITH RVR,ACUTE Physical Exam Vital Signs: Temp Pulse Resp BP Pulse Ox 97.5 F 85 18 158/87 H 91 L 06/07/19 08:00 06/07/19 14:00 06/07/19 08:00 06/07/19 08:00 06/07/19 08:00 Intake & Output 06/06/19 06/07/19 06/08/19 06:59 06:59 06:59 Intake Total 100 580 50 Balance 100 580 50 Weight 67.9 kg 66.1 kg Results Laboratory Results: 06/06/19 03:54 06/04/19 04:42 06/02/19 06/03/19 06/03/19 21:20 00:30 00:30 Creatine Kinase < 20 L CK-MB (CK-2) Troponin I 0.012 NT-Pro-B Natriuret Pep 2350 H 06/03/19 06/03/19 06/03/19 07:33 13:40 13:40 Creatine Kinase 22 L CK-MB (CK-2) 1.21 1.25 Troponin I 0.012 < 0.012 NT-Pro-B Natriuret Pep 06/03/19 06/03/19 19:12 19:12 Creatine Kinase 24 L CK-MB (CK-2) 1.38 Troponin I < 0.012 NT-Pro-B Natriuret Pep Impressions: Chest X-Ray 06/02/19 20:39 IMPRESSION: No acute cardiopulmonary findings. Assessment and Plan - Diagnosis (1) Acute encephalopathy Is this a current diagnosis for this admission?: Yes Plan: Improving. Metabolic encephalopathy due to underlying UTI complicated by underlying dementia. Continue treatment for underlying UTI. Restart home meds. Seizure, fall, aspiration precautions. (2) Complicated UTI (urinary tract infection) Is this a current diagnosis for this admission?: Yes Plan: Urine culture positive for Klebsiella pansensitive. History of recurrent UTIs. Review of chart shows patient has had UTI due to Pseudomonas and E. coli. Culture positive for Klebsiella pansensitive. Day 4/7 antibiotics. Day 1 p.o. levofloxacin. Received 3 days of IV antibiotics. Received 1 dose of ceftriaxone. DC ceftriaxone. Received 1 day of levofloxacin. Had to be DC'd because patient started complaining of itching. Cefepime day 1. Switch to p.o. antibiotics. Patient pending for placement. (3) Atrial fibrillation with RVR Is this a current diagnosis for this admission?: Yes Plan: Rate controlled. Not a candidate for anticoagulation. Initially was placed on Cardizem drip. Switch to p.o. Cardizem. Continue p.o. Cardizem. Monitor vitals. (4) COPD (chronic obstructive pulmonary disease) Qualifiers: Emphysema type: unspecified Is this a current diagnosis for this admission?: Yes Plan: Currently not exacerbated. Continue duo nebs, Proventil oxygen, PRN BiPAP, LABA's/LAMA's. Outpatient pulmonary follow-up. (5) Crohns disease Is this a current diagnosis for this admission?: Yes Plan: Restart home meds. Outpatient GI follow-up. 12/31/2018. Colonoscopy by Dr. Mcgarry. Positive for internal hemorrhoids and terminal ileitis. Biopsy positive for mild chronic inflammation, granulation tissue pyloric gland metaplasia. Negative for dysplasia or malignancy. (6) Dementia Qualifiers: Dementia behavioral disturbance: with behavioral disturbance Is this a current diagnosis for this admission?: Yes Plan: Restart home meds. Fall, aspiration, seizure precautions. Supportive measures. TSH, T3, T4 WNL. Low B12 4. B12 250. Day 2 subcutaneous B12 injection. (7) Diabetes mellitus Qualifiers: Diabetes mellitus type: type 2 Is this a current diagnosis for this admission?: Yes Plan: Controlled. 03/17/2019 A1c 5.9. Takes glyburide as outpatient. Diabetic diet, sliding scale insulin, Accu-Chek, hypoglycemia protocol, adjust dosage as needed. Restart home meds upon discharge. Outpatient PCP follow-up. (8) Hypertension Is this a current diagnosis for this admission?: Yes Plan: Not optimized. Restart home meds. PRN hydralazine. Adjust dosage as needed. Outpatient PCP follow-up. (9) Anemia Is this a current diagnosis for this admission?: Yes Plan: Chronic. H&H stable. This is possibly due to underlying Crohn's and internal hemorrhoids. 12/31/2018. Colonoscopy by Dr. Mcgarry. Positive for internal hemorrhoids and terminal ileitis. Biopsy positive for mild chronic inflammation, granulation tissue pyloric gland metaplasia. Negative for dysplasia or malignancy. Monitor H&H, supportive transfusions, restart treatment for underlying Crohn's disease. (10) Vitamin B12 deficiency Is this a current diagnosis for this admission?: Yes Plan: Likely due to defective absorption. Patient has Crohn's disease with terminal ileitis. B12 deficiency may have had to contribute to her dementia. Day #3 subcutaneous B12 injection. Continue daily B12 injections. To transition to p.o. upon discharge. Outpatient PCP follow-up. 12/31/2018. Colonoscopy by Dr. Mcgarry. Positive for internal hemorrhoids and terminal ileitis. Biopsy positive for mild chronic inflammation, granulation tissue pyloric gland metaplasia. Negative for dysplasia or malignancy.
[2019-06-07] MEDS: DEXTROSE 5%-NORMAL SALINE 1,000 ML IV PRN (18:54)
[2019-06-07] MEDS: TRAZODONE HCL 50 MG TABLET PO SCH (23:30)
[2019-06-07] MEDS: DONEPEZIL HCL 5 MG TABLET PO SCH (23:30)
[2019-06-07] MEDS: INSULIN LISPRO 100 UNIT/ML 3 ML VIAL SUBCUT SCH (23:35)
[2019-06-08] MEDS: ACETAMINOPHEN 325 MG TABLET PO PRN (03:55)
[2019-06-08] MEDS: HALOPERIDOL LACTATE INJ 5 MG/1 ML VIAL IV PRN ×2 (03:56→13:41)
[2019-06-08] MEDS: HEPARIN SOD (PORCINE) 5,000 UNIT/ML 1 ML VIAL SUBCUT SCH ×3 (06:23→22:11)
[2019-06-08] MEDS: DIVALPROEX SODIUM 250 MG TABLET.DR PO SCH ×3 (06:23→22:11)
[2019-06-08] MEDS: INSULIN LISPRO 100 UNIT/ML 3 ML VIAL SUBCUT SCH ×4 (08:04→22:12)
[2019-06-08] MEDS: CYANOCOBALAMIN (VITAMIN B-12) INJ 1000 MCG/1 ML VIAL IM SCH (09:50)
[2019-06-08] MEDS: TIOTROPIUM BROMIDE DPI 5 CAP/KIT (18 MCG/CAP) IH SCH (09:51)
[2019-06-08] MEDS: DILTIAZEM HCL 120 MG CAP.SR.24H PO SCH (09:51)
[2019-06-08] MEDS: LEVOFLOXACIN 500 MG TABLET PO SCH (09:51)
[2019-06-08] MEDS: MESALAMINE 400 MG CAPSULE.DR PO SCH ×3 (09:51→17:29)
[2019-06-08] MEDS: DOCUSATE SODIUM 100 MG CAPSULE PO SCH ×2 (09:51→17:29)
[2019-06-08] MEDS: LISINOPRIL 10 MG TABLET PO SCH (09:51)
[2019-06-08] MEDS: DULOXETINE HCL 30 MG CAPSULE.DR PO SCH (09:51)
[2019-06-08] MEDS: AMLODIPINE BESYLATE 5 MG TABLET PO SCH (09:52)
[2019-06-08] MEDS: RISPERIDONE 0.25 MG TABLET PO SCH ×2 (10:12→17:29)
--- NOTE | 2019-06-08 11:33 | PDOC PROGRESS REPORT ---
Subjective Progress Note for:: 06/08/19 Subjective:: JOSE DANIEL LONG is a 78 year old female with a past medical history of advanced dementia, atrial fibrillation, congestive heart failure and recurrent UTIs. Patient is brought by family members who are no longer present but had concern for worsening mental status over the last 2 weeks. Patient is sedated following severe agitation, unable to obtain history aside from the chart. Work-up reveals A. fib with RVR she requires restraint, sedation, IV Cardizem and digox in 0.5 IV results again conversion to normal sinus rhythm. She appears comfortable, is unable to provide history resides with her 2 daughters. 06/04/2019. Patient is delirious, actively hallucinating, when asked how she is doing she is stating that she is talking to her Max. She is awake and c ooperative with physical examination, denies any fever, chills, nausea, vomiting, diarrhea, constipation or any urinary symptoms. 06/05/2019. Overnight patient became agitated and was given Haldol after which she has not been agitated, calm. On my encounter patient is sleeping, easily arousable, oriented to self and place, denies any fever, chills, nausea, vomiting, diarrhea, constipation or any urinary symptoms. 06/06/2019. Patient sleeping comfortably, easily arousable, overnight agitated a nd we collide probably due to sundowning. Received Haldol. Oriented to self. Denies any fever, chills, nausea, vomiting, diarrhea, constipation or any urinary symptoms. Pending placement. 06/07/2019. Patient sleeping comfortably, easily arousable, overnight agitated and we collide probably due to sundowning. Received Haldol. Oriented to self. Denies any fever, chills, nausea, vomiting, diarrhea, constipation or any urinary symptoms. Pending placement. 06/08/2019. No acute events overnight. Patient seems to have been less agitated overnight. Sleeps most of the day however easily arousable, only oriented to self, however due to severe dementia does not communicate any symptoms. When asked if she is doing okay she says she does not know. When asked if she is any is any pain she says she does not know. Reason For Visit: ATRIAL FLUTTER,ATRIAL FIBRILLATION WITH RVR,ACUTE Physical Exam Vital Signs: Temp Pulse Resp BP Pulse Ox 97.7 F 77 20 139/75 H 92 06/08/19 07:57 06/08/19 07:57 06/08/19 07:57 06/08/19 09:39 06/08/19 07:57 Intake & Output 06/07/19 06/08/19 06/09/19 06:59 06:59 06:59 Intake Total 580 290 Balance 580 290 Weight 66.1 kg 67 kg General appearance: PRESENT: no acute distress, well-developed, well-nourished Head exam: PRESENT: atraumatic, normocephalic Eye exam: PRESENT: conjunctiva pink, EOMI, PERRLA. ABSENT: scleral icterus Ear exam: PRESENT: normal external ear exam Mouth exam: PRESENT: moist, tongue midline Neck exam: ABSENT: carotid bruit, JVD, lymphadenopathy, thyromegaly Respiratory exam: PRESENT: clear to auscultation jasson. ABSENT: rales, rhonchi, wheezes Cardiovascular exam: PRESENT: RRR. ABSENT: diastolic murmur, rubs, systolic murmur Pulses: PRESENT: normal dorsalis pedis pul Vascular exam: PRESENT: normal capillary refill GI/Abdominal exam: PRESENT: normal bowel sounds, soft. ABSENT: distended, guarding, mass, organolmegaly, rebound, tenderness Rectal exam: PRESENT: deferred Extremities exam: PRESENT: full ROM. ABSENT: calf tenderness, clubbing, pedal edema Neurological exam: PRESENT: alert, awake, oriented to person, CN II-XII grossly intact Psychiatric exam: PRESENT: appropriate affect, normal mood. ABSENT: homicidal ideation, suicidal ideation Skin exam: PRESENT: dry, intact, warm. ABSENT: cyanosis, rash Results Laboratory Results: 06/06/19 03:54 06/04/19 04:42 06/02/19 06/03/19 06/03/19 21:20 00:30 00:30 Creatine Kinase < 20 L CK-MB (CK-2) Troponin I 0.012 NT-Pro-B Natriuret Pep 2350 H 06/03/19 06/03/19 06/03/19 07:33 13:40 13:40 Creatine Kinase 22 L CK-MB (CK-2) 1.21 1.25 Troponin I 0.012 < 0.012 NT-Pro-B Natriuret Pep 06/03/19 06/03/19 19:12 19:12 Creatine Kinase 24 L CK-MB (CK-2) 1.38 Troponin I < 0.012 NT-Pro-B Natriuret Pep Impressions: Chest X-Ray 06/02/19 20:39 IMPRESSION: No acute cardiopulmonary findings. Assessment and Plan - Diagnosis (1) Acute encephalopathy Is this a current diagnosis for this admission?: Yes Plan: Improving. Metabolic encephalopathy due to underlying UTI complicated by underlying dementia. Continue treatment for underlying UTI. Restart home meds. Seizure, fall, aspiration precautions. (2) Complicated UTI (urinary tract infection) Is this a current diagnosis for this admission?: Yes Plan: Urine culture positive for Klebsiella pansensitive. History of recurrent UTIs. Review of chart shows patient has had UTI due to Pseudomonas and E. coli. Culture positive for Klebsiella pansensitive. Day 5/7 antibiotics. Day 2 p.o. levofloxacin. Received 3 days of IV antibiotics. Received 1 dose of ceftriaxone. DC ceftriaxone. Received 1 day of levofloxacin. Had to be DC'd because patient started complaining of itching. Cefepime day 1. Switch to p.o. antibiotics. Patient pending for placement. (3) Atrial fibrillation with RVR Is this a current diagnosis for this admission?: Yes Plan: Rate controlled. Not a candidate for anticoagulation. Initially was placed on Cardizem drip. Switch to p.o. Cardizem. Continue p.o. Cardizem. Monitor vitals. (4) COPD (chronic obstructive pulmonary disease) Qualifiers: Emphysema type: unspecified Is this a current diagnosis for this admission?: Yes Plan: Currently not exacerbated. Continue duo nebs, Proventil oxygen, PRN BiPAP, LABA's/LAMA's. Outpatient pulmonary follow-up. (5) Crohns disease Is this a current diagnosis for this admission?: Yes Plan: Restart home meds. Outpatient GI follow-up. 12/31/2018. Colonoscopy by Dr. Mcgarry. Positive for internal hemorrhoids and terminal ileitis. Biopsy positive for mild chronic inflammation, granulation tissue pyloric gland metaplasia. Negative for dysplasia or malignancy. (6) Dementia Qualifiers: Dementia behavioral disturbance: with behavioral disturbance Is this a current diagnosis for this admission?: Yes Plan: Restart home meds. Fall, aspiration, seizure precautions. Supportive measures. TSH, T3, T4 WNL. Low B12 4. B12 250. Day 2 subcutaneous B12 injection. (7) Diabetes mellitus Qualifiers: Diabetes mellitus type: type 2 Is this a current diagnosis for this admission?: Yes Plan: Controlled. 03/17/2019 A1c 5.9. Takes glyburide as outpatient. Diabetic diet, sliding scale insulin, Accu-Chek, hypoglycemia protocol, adjust dosage as needed. Restart home meds upon discharge. Outpatient PCP follow-up. (8) Hypertension Is this a current diagnosis for this admission?: Yes Plan: Not optimized. Restart home meds. PRN hydralazine. Adjust dosage as needed. Outpatient PCP follow-up. (9) Anemia Is this a current diagnosis for this admission?: Yes Plan: Chronic. H&H stable. This is possibly due to underlying Crohn's and internal hemorrhoids. 12/31/2018. Colonoscopy by Dr. Mcgarry. Positive for internal hemorrhoids and terminal ileitis. Biopsy positive for mild chronic inflammation, granulation tissue pyloric gland metaplasia. Negative for dysplasia or malignancy. Monitor H&H, supportive transfusions, restart treatment for underlying Crohn's disease. (10) Vitamin B12 deficiency Is this a current diagnosis for this admission?: Yes Plan: Likely due to defective absorption. Patient has Crohn's disease with terminal ileitis. B12 deficiency may have had to contribute to her dementia. Day #4 subcutaneous B12 injection. Continue daily B12 injections. To transition to p.o. upon discharge. Outpatient PCP follow-up. 12/31/2018. Colonoscopy by Dr. Mcgarry. Positive for internal hemorrhoids and terminal ileitis. Biopsy positive for mild chronic inflammation, granulation tissue pyloric gland metaplasia. Negative for dysplasia or malignancy.
[2019-06-08] MEDS: DEXTROSE 5%-NORMAL SALINE 1,000 ML IV PRN (11:46)
[2019-06-08] MEDS: DONEPEZIL HCL 5 MG TABLET PO SCH (22:12)
[2019-06-08] MEDS: TRAZODONE HCL 50 MG TABLET PO SCH (22:12)
[2019-06-09] MEDS: DEXTROSE 5%-NORMAL SALINE 1,000 ML IV PRN (00:42)
[2019-06-09 05:37] LABS: ABSOLUTE BASOPHILS # (AUTO) 0.1 10^3/uL (0.0-0.2); ABSOLUTE EOSINOPHILS # (AUTO) 0.1 10^3/uL (0.0-0.6); ABSOLUTE NEUT (AUTO) 8.1 10^3/uL (1.7-8.2); BASOPHILS % (AUTO) 0.7 % (0-2); HEMATOCRIT 25.6 % (36.0-47.0); HEMOGLOBIN 8.2 g/dL (12.0-15.5); LYMPHOCYTES % (AUTO) 9.6 % (13-45); MEAN CORPUSCULAR HEMOGLOBIN 27.5 pg (27.0-33.4); MEAN CORPUSCULAR HGB CONC 32.3 g/dL (32.0-36.0); MEAN CORPUSCULAR VOLUME 85 fl (80-97); MONOCYTES % (AUTO) 9.4 % (3-13); PLATELET COUNT 254 10^3/uL (150-450); RED CELL DISTRIBUTION WIDTH 18.1 % (11.5-14.0); SEGMENTED NEUTROPHILS % (AUTO) 79.3 % (42-78); TOTAL CELLS COUNTED % (AUTO) 100 %; WHITE BLOOD COUNT 10.2 10^3/uL (4.0-10.5)
[2019-06-09] MEDS: HEPARIN SOD (PORCINE) 5,000 UNIT/ML 1 ML VIAL SUBCUT SCH ×3 (05:50→22:31)
[2019-06-09] MEDS: DIVALPROEX SODIUM 250 MG TABLET.DR PO SCH ×3 (05:50→22:31)
[2019-06-09 05:59] LABS: ALANINE AMINOTRANSFERASE 17 U/L (9-52); ALBUMIN 2.5 g/dL (3.5-5.0); ALKALINE PHOSPHATASE 63 U/L (38-126); ASPARTATE AMINO TRANSFERASE 9 U/L (14-36); BILIRUBIN,DIRECT 0.2 mg/dL (0.0-0.4); BILIRUBIN,TOTAL 0.2 mg/dL (0.2-1.3); BLOOD UREA NITROGEN 5 mg/dL (7-20); CALCIUM 8.3 mg/dL (8.4-10.2); GLUCOSE 118 mg/dL (75-110); POTASSIUM 3.7 mmol/L (3.6-5.0); TOTAL PROTEIN 4.9 g/dL (6.3-8.2)
[2019-06-09 06:04] LABS: CARBON DIOXIDE 29 mmol/L (22-30); CHLORIDE 107 mmol/L (98-107)
[2019-06-09 06:11] LABS: ANION GAP 4 (5-19)
[2019-06-09] MEDS: INSULIN LISPRO 100 UNIT/ML 3 ML VIAL SUBCUT SCH ×4 (08:48→22:39)
[2019-06-09] MEDS: RISPERIDONE 0.25 MG TABLET PO SCH ×3 (17:28→18:18)
[2019-06-09] MEDS: MESALAMINE 400 MG CAPSULE.DR PO SCH ×2 (17:29→21:51)
[2019-06-09] MEDS: DILTIAZEM HCL 120 MG CAP.SR.24H PO SCH (17:35)
[2019-06-09] MEDS: LEVOFLOXACIN 500 MG TABLET PO SCH (17:36)
[2019-06-09] MEDS: AMLODIPINE BESYLATE 5 MG TABLET PO SCH (17:36)
[2019-06-09] MEDS: DULOXETINE HCL 30 MG CAPSULE.DR PO SCH (17:36)
[2019-06-09] MEDS: DOCUSATE SODIUM 100 MG CAPSULE PO SCH ×2 (17:36→18:18)
[2019-06-09] MEDS: TIOTROPIUM BROMIDE DPI 5 CAP/KIT (18 MCG/CAP) IH SCH (17:37)
[2019-06-09] MEDS: LISINOPRIL 10 MG TABLET PO SCH (17:37)
[2019-06-09] MEDS: CYANOCOBALAMIN (VITAMIN B-12) INJ 1000 MCG/1 ML VIAL IM SCH (17:49)
[2019-06-09] MEDS: DONEPEZIL HCL 5 MG TABLET PO SCH (22:31)
[2019-06-09] MEDS: TRAZODONE HCL 50 MG TABLET PO SCH (22:31)
[2019-06-10] MEDS ORDERED: DILTIAZEM HCL 30 MG TABLET ONE (03:36)
[2019-06-10] MEDS ORDERED: DILTIAZEM HCL 90 MG TABLET PO ONE (03:45)
[2019-06-10] MEDS ORDERED: DILTIAZEM HCL 90 MG TABLET PO SCH (06:00)
[2019-06-10] MEDS: DIVALPROEX SODIUM 250 MG TABLET.DR PO SCH ×3 (06:59→21:26)
[2019-06-10] MEDS: HEPARIN SOD (PORCINE) 5,000 UNIT/ML 1 ML VIAL SUBCUT SCH ×3 (06:59→21:26)
[2019-06-10] MEDS: INSULIN LISPRO 100 UNIT/ML 3 ML VIAL SUBCUT SCH ×4 (08:27→21:35)
[2019-06-10] MEDS ORDERED: HALOPERIDOL 0.5 MG TABLET PO PRN (09:48)
[2019-06-10] MEDS ORDERED: FUROSEMIDE INJ/PF 20 MG/2 ML SDV IV ONE (10:00)
[2019-06-10] MEDS ORDERED: HALOPERIDOL 1 MG TABLET PO SCH (10:00)
[2019-06-10] MEDS ORDERED: DILTIAZEM HCL 120 MG CAP.SR.24H PO SCH (10:00)
[2019-06-10] MEDS: LISINOPRIL 10 MG TABLET PO SCH (10:10)
[2019-06-10] MEDS ORDERED: METOPROLOL TARTRATE PF/INJ 5 MG/5 ML SDV IV ONE (11:42)
[2019-06-10] MEDS: LEVOFLOXACIN 500 MG TABLET PO SCH (12:23)
[2019-06-10] MEDS: FUROSEMIDE 20 MG TABLET PO SCH (12:23)
[2019-06-10] MEDS: DOCUSATE SODIUM 100 MG CAPSULE PO SCH ×2 (12:23→18:50)
[2019-06-10] MEDS: CYANOCOBALAMIN (VITAMIN B-12) INJ 1000 MCG/1 ML VIAL IM SCH (12:24)
[2019-06-10] MEDS: RISPERIDONE 0.25 MG TABLET PO SCH ×2 (12:24→16:59)
[2019-06-10] MEDS: TIOTROPIUM BROMIDE DPI 5 CAP/KIT (18 MCG/CAP) IH SCH (12:26)
[2019-06-10] MEDS: MESALAMINE 400 MG CAPSULE.DR PO SCH ×3 (12:27→18:50)
[2019-06-10] MEDS ORDERED: FUROSEMIDE INJ/PF 20 MG/2 ML SDV ONE (12:29)
--- NOTE | 2019-06-10 14:57 | PDOC PROGRESS REPORT ---
Subjective Progress Note for:: 06/10/19 Subjective:: JOSE DANIEL LONG is a 78 year old female with a past medical history of advanced dementia, atrial fibrillation, congestive heart failure and recurrent UTIs. Patient is brought by family members who are no longer present but had concern for worsening mental status over the last 2 weeks. Patient is sedated following severe agitation, unable to obtain history aside from the chart. Work-up reveals A. fib with RVR she requires restraint, sedation, IV Cardizem and digox in 0.5 IV results again conversion to normal sinus rhythm. She appears comfortable, is unable to provide history resides with her 2 daughters. 06/04/2019. Patient is delirious, actively hallucinating, when asked how she is doing she is stating that she is talking to her Max. She is awake and c ooperative with physical examination, denies any fever, chills, nausea, vomiting, diarrhea, constipation or any urinary symptoms. 06/05/2019. Overnight patient became agitated and was given Haldol after which she has not been agitated, calm. On my encounter patient is sleeping, easily arousable, oriented to self and place, denies any fever, chills, nausea, vomiting, diarrhea, constipation or any urinary symptoms. 06/06/2019. Patient sleeping comfortably, easily arousable, overnight agitated a nd we collide probably due to sundowning. Received Haldol. Oriented to self. Denies any fever, chills, nausea, vomiting, diarrhea, constipation or any urinary symptoms. Pending placement. 06/07/2019. Patient sleeping comfortably, easily arousable, overnight agitated and we collide probably due to sundowning. Received Haldol. Oriented to self. Denies any fever, chills, nausea, vomiting, diarrhea, constipation or any urinary symptoms. Pending placement. 06/08/2019. No acute events overnight. Patient seems to have been less agitated overnight. Sleeps most of the day however easily arousable, only oriented to self, however due to severe dementia does not communicate any symptoms. When asked if she is doing okay she says she does not know. When asked if she is any is any pain she says she does not know. 06/10/2019. Overnight patient developed A. fib RVR was started on Cardizem p.o. Otherwise no acute events overnight. Patient sleeping but easily arousable, does not communicate much due to severe dementia. Pending placement. Reason For Visit: ATRIAL FLUTTER,ATRIAL FIBRILLATION WITH RVR,ACUTE Physical Exam Vital Signs: Temp Pulse Resp BP Pulse Ox 98.1 F 159 H 22 H 139/85 H 92 06/10/19 11:42 06/10/19 11:42 06/10/19 11:42 06/10/19 11:42 06/10/19 11:42 Intake & Output 06/09/19 06/10/19 06/11/19 06:59 06:59 06:59 Intake Total 2059 150 Balance 2059 150 Weight 67.7 kg 67.1 kg General appearance: PRESENT: no acute distress, well-developed, well-nourished Head exam: PRESENT: atraumatic, normocephalic Respiratory exam: PRESENT: clear to auscultation jasson. ABSENT: rales, rhonchi, wheezes Cardiovascular exam: PRESENT: RRR. ABSENT: diastolic murmur, rubs, systolic murmur GI/Abdominal exam: PRESENT: normal bowel sounds, soft. ABSENT: distended, guarding, mass, organolmegaly, rebound, tenderness Extremities exam: PRESENT: full ROM. ABSENT: calf tenderness, clubbing, pedal edema Neurological exam: PRESENT: alert, awake, oriented to person, CN II-XII grossly intact Results Laboratory Results: 06/09/19 05:18 06/09/19 05:18 06/02/19 06/03/19 06/03/19 21:20 00:30 00:30 Creatine Kinase < 20 L CK-MB (CK-2) Troponin I 0.012 NT-Pro-B Natriuret Pep 2350 H 06/03/19 06/03/19 06/03/19 07:33 13:40 13:40 Creatine Kinase 22 L CK-MB (CK-2) 1.21 1.25 Troponin I 0.012 < 0.012 NT-Pro-B Natriuret Pep 06/03/19 06/03/19 19:12 19:12 Creatine Kinase 24 L CK-MB (CK-2) 1.38 Troponin I < 0.012 NT-Pro-B Natriuret Pep Impressions: Chest X-Ray 06/02/19 20:39 IMPRESSION: No acute cardiopulmonary findings. Assessment and Plan - Diagnosis (1) Acute encephalopathy Is this a current diagnosis for this admission?: Yes Plan: Improving. Metabolic encephalopathy due to underlying UTI complicated by underlying dementia. Continue treatment for underlying UTI. Restart home meds. Seizure, fall, aspiration precautions. (2) Complicated UTI (urinary tract infection) Is this a current diagnosis for this admission?: Yes Plan: Urine culture positive for Klebsiella pansensitive. History of recurrent UTIs. Review of chart shows patient has had UTI due to Pseudomonas and E. coli. Culture positive for Klebsiella pansensitive. Received 7 days of antibiotics. DC antibiotics 06/10/2019. Day 4 p.o. levofloxacin. Received 3 days of IV antibiotics. Received 1 dose of ceftriaxone. DC ceftriaxone. Received 1 day of levofloxacin. Had to be DC'd because patient started complaining of itching. Cefepime day 1. (3) Atrial fibrillation with RVR Is this a current diagnosis for this admission?: Yes Plan: Overnight developed A. fib RVR currently rate controlled. Not a candidate for anticoagulation. Initially was placed on Cardizem drip. Switch to p.o. Cardizem. Continue p.o. Cardizem. Monitor vitals. (4) COPD (chronic obstructive pulmonary disease) Qualifiers: Emphysema type: unspecified Is this a current diagnosis for this admission?: Yes Plan: Currently not exacerbated. Continue duo nebs, Proventil oxygen, PRN BiPAP, LABA's/LAMA's. Outpatient pulmonary follow-up. (5) Crohns disease Is this a current diagnosis for this admission?: Yes Plan: Restart home meds. Outpatient GI follow-up. 12/31/2018. Colonoscopy by Dr. Mcgarry. Positive for internal hemorrhoids and terminal ileitis. Biopsy positive for mild chronic inflammation, granulation tissue pyloric gland metaplasia. Negative for dysplasia or malignancy. (6) Dementia Qualifiers: Dementia behavioral disturbance: with behavioral disturbance Is this a current diagnosis for this admission?: Yes Plan: Restart home meds. Fall, aspiration, seizure precautions. Supportive measures. TSH, T3, T4 WNL. Low B12 4. B12 250. Day 2 subcutaneous B12 injection. (7) Diabetes mellitus Qualifiers: Diabetes mellitus type: type 2 Is this a current diagnosis for this admission?: Yes Plan: Controlled. 03/17/2019 A1c 5.9. Takes glyburide as outpatient. Diabetic diet, sliding scale insulin, Accu-Chek, hypoglycemia protocol, adjust dosage as needed. Restart home meds upon discharge. Outpatient PCP follow-up. (8) Hypertension Is this a current diagnosis for this admission?: Yes Plan: Not optimized. Restart home meds. PRN hydralazine. Adjust dosage as needed. Outpatient PCP follow-up. (9) Anemia Is this a current diagnosis for this admission?: Yes Plan: Chronic. H&H stable. This is possibly due to underlying Crohn's and internal hemorrhoids. 12/31/2018. Colonoscopy by Dr. Mcgarry. Positive for internal hemorrhoids and terminal ileitis. Biopsy positive for mild chronic inflammation, granulation tissue pyloric gland metaplasia. Negative for dysplasia or malignancy. Monitor H&H, supportive transfusions, restart treatment for underlying Crohn's disease. (10) Vitamin B12 deficiency Is this a current diagnosis for this admission?: Yes Plan: Likely due to defective absorption. Patient has Crohn's disease with terminal ileitis. B12 deficiency may have had to contribute to her dementia. Day #4 subcutaneous B12 injection. Continue daily B12 injections. To transition to p.o. upon discharge. Outpatient PCP follow-up. 12/31/2018. Colonoscopy by Dr. Mcgarry. Positive for internal hemorrhoids and terminal ileitis. Biopsy positive for mild chronic inflammation, granulation tissue pyloric gland metaplasia. Negative for dysplasia or malignancy.
[2019-06-10] MEDS: DONEPEZIL HCL 5 MG TABLET PO SCH (21:26)
[2019-06-10] MEDS: TRAZODONE HCL 50 MG TABLET PO SCH (21:26)
[2019-06-11] MEDS: DIVALPROEX SODIUM 250 MG TABLET.DR PO SCH ×3 (05:39→22:12)
[2019-06-11] MEDS: HEPARIN SOD (PORCINE) 5,000 UNIT/ML 1 ML VIAL SUBCUT SCH ×3 (05:40→22:12)
[2019-06-11 06:46] LABS: ABSOLUTE BASOPHILS # (AUTO) 0.1 10^3/uL (0.0-0.2); ABSOLUTE EOSINOPHILS # (AUTO) 0.1 10^3/uL (0.0-0.6); ABSOLUTE LYMPHOCYTES (AUTO) 0.9 10^3/uL (0.5-4.7); ABSOLUTE MONOCYTES (AUTO) 0.8 10^3/uL (0.1-1.4); ABSOLUTE NEUT (AUTO) 7.1 10^3/uL (1.7-8.2); BASOPHILS % (AUTO) 0.6 % (0-2); EOSINOPHILS % (AUTO) 0.7 % (0-6); HEMATOCRIT 26.3 % (36.0-47.0); HEMOGLOBIN 8.6 g/dL (12.0-15.5); LYMPHOCYTES % (AUTO) 9.9 % (13-45); MEAN CORPUSCULAR HEMOGLOBIN 27.8 pg (27.0-33.4); MEAN CORPUSCULAR HGB CONC 32.8 g/dL (32.0-36.0); MEAN CORPUSCULAR VOLUME 85 fl (80-97); MONOCYTES % (AUTO) 9.1 % (3-13); PLATELET COUNT 249 10^3/uL (150-450); RED CELL DISTRIBUTION WIDTH 18.7 % (11.5-14.0); SEGMENTED NEUTROPHILS % (AUTO) 79.7 % (42-78); TOTAL CELLS COUNTED % (AUTO) 100 %; WHITE BLOOD COUNT 8.9 10^3/uL (4.0-10.5)
[2019-06-11 07:15] LABS: ANION GAP 5 (5-19); BLOOD UREA NITROGEN 5 mg/dL (7-20); CALCIUM 8.4 mg/dL (8.4-10.2); CARBON DIOXIDE 30 mmol/L (22-30); CHLORIDE 106 mmol/L (98-107); GLUCOSE 120 mg/dL (75-110)
[2019-06-11 07:20] LABS: POTASSIUM 2.9 mmol/L (3.6-5.0)
[2019-06-11] MEDS ORDERED: POTASSIUM CHLORIDE 10 MEQ CAPSULE.ER PO ONE ×4 (09:00→18:00)
--- NOTE | 2019-06-11 11:27 | PDOC PROGRESS REPORT ---
Subjective Progress Note for:: 06/11/19 Subjective:: JOSE DANIEL LONG is a 78 year old female with a past medical history of advanced dementia, atrial fibrillation, congestive heart failure and recurrent UTIs. Patient is brought by family members who are no longer present but had concern for worsening mental status over the last 2 weeks. Patient is sedated following severe agitation, unable to obtain history aside from the chart. Work-up reveals A. fib with RVR she requires restraint, sedation, IV Cardizem and digox in 0.5 IV results again conversion to normal sinus rhythm. She appears comfortable, is unable to provide history resides with her 2 daughters. 06/04/2019. Patient is delirious, actively hallucinating, when asked how she is doing she is stating that she is talking to her Max. She is awake and c ooperative with physical examination, denies any fever, chills, nausea, vomiting, diarrhea, constipation or any urinary symptoms. 06/05/2019. Overnight patient became agitated and was given Haldol after which she has not been agitated, calm. On my encounter patient is sleeping, easily arousable, oriented to self and place, denies any fever, chills, nausea, vomiting, diarrhea, constipation or any urinary symptoms. 06/06/2019. Patient sleeping comfortably, easily arousable, overnight agitated a nd we collide probably due to sundowning. Received Haldol. Oriented to self. Denies any fever, chills, nausea, vomiting, diarrhea, constipation or any urinary symptoms. Pending placement. 06/07/2019. Patient sleeping comfortably, easily arousable, overnight agitated and we collide probably due to sundowning. Received Haldol. Oriented to self. Denies any fever, chills, nausea, vomiting, diarrhea, constipation or any urinary symptoms. Pending placement. 06/08/2019. No acute events overnight. Patient seems to have been less agitated overnight. Sleeps most of the day however easily arousable, only oriented to self, however due to severe dementia does not communicate any symptoms. When asked if she is doing okay she says she does not know. When asked if she is any is any pain she says she does not know. 06/10/2019. Overnight patient developed A. fib RVR was started on Cardizem p.o. Otherwise no acute events overnight. Patient sleeping but easily arousable, does not communicate much due to severe dementia. Pending placement. 06/11/2019. As per primary nurse patient was agitated overnight and threatening to head the PANEL WIRER and RN. Otherwise no acute events overnight, patient comfortably sleeping and easily arousable. Patient daughter at the bedside who was updated about patient's status. Patient still pending placement. Reason For Visit: ATRIAL FLUTTER,ATRIAL FIBRILLATION WITH RVR,ACUTE Physical Exam Vital Signs: Temp Pulse Resp BP Pulse Ox 97.5 F 81 16 150/72 H 98 06/11/19 07:41 06/11/19 07:41 06/11/19 07:41 06/11/19 07:41 06/11/19 07:41 Intake & Output 06/10/19 06/11/19 06/12/19 06:59 06:59 06:59 Intake Total 150 168 Balance 150 168 Weight 67.1 kg 64 kg General appearance: PRESENT: no acute distress, well-developed, well-nourished Head exam: PRESENT: atraumatic, normocephalic Neck exam: ABSENT: carotid bruit, JVD, lymphadenopathy, thyromegaly Respiratory exam: PRESENT: clear to auscultation jasson. ABSENT: rales, rhonchi, wheezes Cardiovascular exam: PRESENT: RRR. ABSENT: diastolic murmur, rubs, systolic murmur Pulses: PRESENT: normal dorsalis pedis pul Vascular exam: PRESENT: normal capillary refill GI/Abdominal exam: PRESENT: normal bowel sounds, soft. ABSENT: distended, guarding, mass, organolmegaly, rebound, tenderness Extremities exam: ABSENT: calf tenderness, clubbing, pedal edema Neurological exam: PRESENT: oriented to person, other - Comfortably sleeping, easily arousable.. ABSENT: motor sensory deficit Psychiatric exam: PRESENT: appropriate affect, normal mood. ABSENT: homicidal ideation, suicidal ideation Skin exam: PRESENT: dry, intact, warm. ABSENT: cyanosis, rash Results Laboratory Results: 06/11/19 05:38 06/11/19 05:38 06/11/19 06/11/19 05:38 05:38 WBC 8.9 RBC 3.10 L Hgb 8.6 L Hct 26.3 L MCV 85 MCH 27.8 MCHC 32.8 RDW 18.7 H Plt Count 249 Seg Neutrophils % 79.7 H Lymphocytes % 9.9 L Monocytes % 9.1 Eosinophils % 0.7 Basophils % 0.6 Absolute Neutrophils 7.1 Absolute Lymphocytes 0.9 Absolute Monocytes 0.8 Absolute Eosinophils 0.1 Absolute Basophils 0.1 Sodium 140.9 Potassium 2.9 L* Chloride 106 Carbon Dioxide 30 Anion Gap 5 BUN 5 L Creatinine 0.62 Est GFR ( Amer) > 60 Est GFR (Non-Af Amer) > 60 Glucose 120 H Calcium 8.4 Magnesium 1.7 06/02/19 06/03/19 06/03/19 21:20 00:30 00:30 Creatine Kinase < 20 L CK-MB (CK-2) Troponin I 0.012 NT-Pro-B Natriuret Pep 2350 H 06/03/19 06/03/19 06/03/19 07:33 13:40 13:40 Creatine Kinase 22 L CK-MB (CK-2) 1.21 1.25 Troponin I 0.012 < 0.012 NT-Pro-B Natriuret Pep 06/03/19 06/03/19 19:12 19:12 Creatine Kinase 24 L CK-MB (CK-2) 1.38 Troponin I < 0.012 NT-Pro-B Natriuret Pep Impressions: Chest X-Ray 06/02/19 20:39 IMPRESSION: No acute cardiopulmonary findings. Assessment and Plan - Diagnosis (1) Complicated UTI (urinary tract infection) Is this a current diagnosis for this admission?: Yes Plan: Urine culture positive for Klebsiella pansensitive. History of recurrent UTIs. Review of chart shows patient has had UTI due to Pseudomonas and E. coli. Culture positive for Klebsiella pansensitive. Received 7 days of antibiotics. DC antibiotics 06/10/2019. Day 4 p.o. levofloxacin. Received 3 days of IV antibiotics. Received 1 dose of ceftriaxone. DC ceftriaxone. Received 1 day of levofloxacin. Had to be DC'd because patient started complaining of itching. Cefepime day 1. (2) Acute encephalopathy Is this a current diagnosis for this admission?: Yes Plan: Stable. Metabolic encephalopathy due to underlying UTI complicated by underlying dementia. Continue home meds, seizure, fall, aspiration precautions. Pending placement. (3) Atrial fibrillation with RVR Is this a current diagnosis for this admission?: Yes Plan: Improving. Not rate controlled. HR 96-106. Not a candidate for anticoagulation. Increase Cardizem to 180 from 120. Patient was initially was placed on Cardizem drip. Monitor vitals. Adjust meds as needed. (4) COPD (chronic obstructive pulmonary disease) Qualifiers: Emphysema type: unspecified Is this a current diagnosis for this admission?: Yes Plan: Currently not exacerbated. Continue duo nebs, Proventil oxygen, PRN BiPAP, LABA's/LAMA's. Outpatient pulmonary follow-up. (5) Crohns disease Is this a current diagnosis for this admission?: Yes Plan: Restart home meds. Outpatient GI follow-up. 12/31/2018. Colonoscopy by Dr. Mcgarry. Positive for internal hemorrhoids and terminal ileitis. Biopsy positive for mild chronic inflammation, granulation tissue pyloric gland metaplasia. Negative for dysplasia or malignancy. (6) Dementia Qualifiers: Dementia behavioral disturbance: with behavioral disturbance Is this a current diagnosis for this admission?: Yes Plan: Restart home meds. Fall, aspiration, seizure precautions. Supportive measures. TSH, T3, T4 WNL. Low B12 4. B12 250. (7) Diabetes mellitus Qualifiers: Diabetes mellitus type: type 2 Is this a current diagnosis for this admission?: Yes Plan: Controlled. 03/17/2019 A1c 5.9. Takes glyburide as outpatient. Diabetic diet, sliding scale insulin, Accu-Chek, hypoglycemia protocol, adjust d [place] as needed. Restart home meds upon discharge. Outpatient PCP follow-up. (8) Hypertension Is this a current diagnosis for this admission?: Yes Plan: Normotensive. Continue lisinopril, Cardizem. PRN hydralazine. Adjust dosage as needed. Outpatient PCP follow-up. (9) Anemia Is this a current diagnosis for this admission?: Yes Plan: Chronic. H&H stable. This is possibly due to underlying Crohn's and internal hemorrhoids. 12/31/2018. Colonoscopy by Dr. Mcgarry. Positive for internal hemorrhoids and terminal ileitis. Biopsy positive for mild chronic inflammation, granulation tissue pyloric gland metaplasia. Negative for dysplasia or malignancy. Monitor H&H, supportive transfusions, restart treatment for underlying Crohn's disease. (10) Vitamin B12 deficiency Is this a current diagnosis for this admission?: Yes Plan: Likely due to defective absorption. Patient has Crohn's disease with terminal ileitis. B12 deficiency may have had to contribute to her dementia. Day #5 subcutaneous B12 injection. Continue daily B12 injections. To transition to p.o. upon discharge. O utpatient PCP follow-up. 12/31/2018. Colonoscopy by Dr. Mcgarry. Positive for internal hemorrhoids and terminal ileitis. Biopsy positive for mild chronic inflammation, granulation tissue pyloric gland metaplasia. Negative for dysplasia or malignancy. (11) Hypokalemia Is this a current diagnosis for this admission?: Yes Plan: Due to low p.o. intake and Lasix. Replaced Potassium level this afternoon. BMP tomorrow.
[2019-06-11] MEDS: INSULIN LISPRO 100 UNIT/ML 3 ML VIAL SUBCUT SCH ×4 (11:31→22:13)
[2019-06-11] MEDS: TIOTROPIUM BROMIDE DPI 5 CAP/KIT (18 MCG/CAP) IH SCH (11:32)
[2019-06-11] MEDS: MESALAMINE 400 MG CAPSULE.DR PO SCH ×3 (14:14→22:12)
[2019-06-11] MEDS: MEGESTROL ACETATE SUSP 400 MG/10 ML UDCUP PO SCH (14:20)
[2019-06-11] MEDS: LISINOPRIL 10 MG TABLET PO SCH (14:21)
[2019-06-11] MEDS: DILTIAZEM HCL 180 MG CAPSULE.CR PO SCH (14:22)
[2019-06-11] MEDS: DULOXETINE HCL 30 MG CAPSULE.DR PO SCH (14:30)
[2019-06-11] MEDS: DOCUSATE SODIUM 100 MG CAPSULE PO SCH ×2 (14:39→18:01)
[2019-06-11] MEDS: CYANOCOBALAMIN (VITAMIN B-12) INJ 1000 MCG/1 ML VIAL IM SCH (14:40)
[2019-06-11] MEDS: RISPERIDONE 0.25 MG TABLET PO SCH ×4 (14:46→22:41)
[2019-06-11] MEDS ORDERED: HALOPERIDOL 0.5 MG TABLET PO PRN (17:07)
[2019-06-11] MEDS ORDERED: POTASSIUM CHLORIDE 10 MEQ CAPSULE.ER PO SCH (18:00)
[2019-06-11] MEDS: TRAZODONE HCL 50 MG TABLET PO SCH (22:12)
[2019-06-11] MEDS: DONEPEZIL HCL 5 MG TABLET PO SCH (22:12)
[2019-06-11] MEDS: FUROSEMIDE 20 MG TABLET PO SCH (22:40)
[2019-06-12 05:02] LABS: ANION GAP 5 (5-19); BLOOD UREA NITROGEN 7 mg/dL (7-20); CALCIUM 8.6 mg/dL (8.4-10.2); CARBON DIOXIDE 30 mmol/L (22-30); CHLORIDE 106 mmol/L (98-107); GLUCOSE 118 mg/dL (75-110); POTASSIUM 3.3 mmol/L (3.6-5.0)
[2019-06-12] MEDS: DIVALPROEX SODIUM 250 MG TABLET.DR PO SCH ×3 (06:49→21:37)
[2019-06-12] MEDS: HEPARIN SOD (PORCINE) 5,000 UNIT/ML 1 ML VIAL SUBCUT SCH ×3 (06:49→21:38)
[2019-06-12] MEDS: INSULIN LISPRO 100 UNIT/ML 3 ML VIAL SUBCUT SCH ×4 (09:06→21:38)
[2019-06-12] MEDS: FUROSEMIDE 20 MG TABLET PO SCH (10:17)
[2019-06-12] MEDS: DILTIAZEM HCL 180 MG CAPSULE.CR PO SCH (10:17)
[2019-06-12] MEDS: MEGESTROL ACETATE SUSP 400 MG/10 ML UDCUP PO SCH (10:17)
[2019-06-12] MEDS: MESALAMINE 400 MG CAPSULE.DR PO SCH ×3 (10:17→17:28)
[2019-06-12] MEDS: CYANOCOBALAMIN (VITAMIN B-12) INJ 1000 MCG/1 ML VIAL IM SCH (10:18)
[2019-06-12] MEDS: DULOXETINE HCL 30 MG CAPSULE.DR PO SCH (10:18)
[2019-06-12] MEDS: DOCUSATE SODIUM 100 MG CAPSULE PO SCH ×2 (10:18→17:24)
[2019-06-12] MEDS: TIOTROPIUM BROMIDE DPI 5 CAP/KIT (18 MCG/CAP) IH SCH (10:18)
[2019-06-12] MEDS: LISINOPRIL 10 MG TABLET PO SCH (10:18)
[2019-06-12] MEDS: RISPERIDONE 0.25 MG TABLET PO SCH ×2 (10:18→21:37)
--- NOTE | 2019-06-12 10:22 | PDOC PROGRESS REPORT ---
Subjective Progress Note for:: 06/12/19 Subjective:: No complaints at this time, patient resting comfortably in bed and per RN no complaints overnight. Reason For Visit: ATRIAL FLUTTER,ATRIAL FIBRILLATION WITH RVR,ACUTE Physical Exam Vital Signs: Temp Pulse Resp BP Pulse Ox 97.8 F 99 13 125/54 L 98 06/12/19 07:32 06/12/19 07:32 06/12/19 07:32 06/12/19 07:32 06/12/19 07:32 Intake & Output 06/11/19 06/12/19 06/13/19 06:59 06:59 06:59 Intake Total 168 50 Balance 168 50 Weight 64 kg 63.4 kg General appearance: PRESENT: no acute distress, well-developed, well-nourished Neck exam: ABSENT: carotid bruit, JVD, lymphadenopathy, thyromegaly Respiratory exam: PRESENT: clear to auscultation jasson. ABSENT: rales, rhonchi, wheezes Cardiovascular exam: PRESENT: RRR. ABSENT: diastolic murmur, rubs, systolic murmur Pulses: PRESENT: +1 pedal pulses bilateral Vascular exam: PRESENT: normal capillary refill GI/Abdominal exam: PRESENT: normal bowel sounds, soft. ABSENT: distended, guarding, mass, organolmegaly, rebound, tenderness Extremities exam: PRESENT: full ROM. ABSENT: calf tenderness, clubbing, pedal edema Results Laboratory Results: 06/11/19 05:38 06/12/19 04:18 06/11/19 06/12/19 13:41 04:18 Sodium 140.9 Potassium 3.2 L 3.3 L Chloride 106 Carbon Dioxide 30 Anion Gap 5 BUN 7 Creatinine 0.70 Est GFR ( Amer) > 60 Est GFR (Non-Af Amer) > 60 Glucose 118 H Calcium 8.6 Magnesium 1.7 06/02/19 06/03/19 06/03/19 21:20 00:30 00:30 Creatine Kinase < 20 L CK-MB (CK-2) Troponin I 0.012 NT-Pro-B Natriuret Pep 2350 H 06/03/19 06/03/19 06/03/19 07:33 13:40 13:40 Creatine Kinase 22 L CK-MB (CK-2) 1.21 1.25 Troponin I 0.012 < 0.012 NT-Pro-B Natriuret Pep 06/03/19 06/03/19 19:12 19:12 Creatine Kinase 24 L CK-MB (CK-2) 1.38 Troponin I < 0.012 NT-Pro-B Natriuret Pep Impressions: Chest X-Ray 06/02/19 20:39 IMPRESSION: No acute cardiopulmonary findings. Assessment and Plan - Diagnosis (1) Complicated UTI (urinary tract infection) Is this a current diagnosis for this admission?: Yes Plan: Urine culture positive for Klebsiella pansensitive. History of recurrent UTIs. Review of chart shows patient has had UTI due to Pseudomonas and E. coli. Culture positive for Klebsiella pansensitive. Received 7 days of antibiotics. DC antibiotics 06/10/2019. Day 4 p.o. levofloxacin. Received 3 days of IV antibiotics. Received 1 dose of ceftriaxone. DC ceftriaxone. Received 1 day of levofloxacin. Had to be DC'd because patient started complaining of itching. Cefepime day 1. 06/12/2019-resolved at this time. Patient awaiting placement. (2) Acute encephalopathy Is this a current diagnosis for this admission?: Yes Plan: Stable. Metabolic encephalopathy due to underlying UTI complicated by underlying dementia. Continue home meds, seizure, fall, aspiration precautions. Pending placement. 06/12/2019-stable. Continue seizure fall aspiration precautions. Awaiting placement. (3) Atrial fibrillation with RVR Is this a current diagnosis for this admission?: Yes Plan: Suspecting dementia related delirium prevented scheduled p.o. Cardizem. Continue IV Cardizem, patient not a candidate for chronic anticoagulation secondary to severe dementia with delirium 06/12/2019-rate controlled at this time. Continue oral Cardizem. (4) COPD (chronic obstructive pulmonary disease) Qualifiers: Emphysema type: unspecified Is this a current diagnosis for this admission?: Yes Plan: Currently not exacerbated. Continue duo nebs, Proventil oxygen, PRN BiPAP, LABA's/LAMA's. Outpatient pulmonary follow-up. 06/12/2019-stable. Will continue duo nebs oxygen and as needed BiPAP. Patient will follow-up with primary and pulmonology on outpatient basis. (5) Diabetes mellitus Qualifiers: Diabetes mellitus type: type 2 Is this a current diagnosis for this admission?: Yes Plan: Controlled. 03/17/2019 A1c 5.9. Takes glyburide as outpatient. Diabetic diet, sliding scale insulin, Accu-Chek, hypoglycemia protocol, adjust dosage as needed. Restart home meds upon discharge. Outpatient PCP follow-up. 06/12/2019-stable. Continue sliding scale insulin before meals and at bedtime adjust as needed per patient needs. Restart home medications on upon placement. - Time Time Spent with patient: 15-24 minutes - Inpatient Certification Based on my medical assessment, after consideration of the patient's comorbidities, presenting symptoms, or acuity I expect that the services needed warrant INPATIENT care.: Yes I certify that my determination is in accordance with my understanding of Medicare's requirements for reasonable and necessary INPATIENT services [42 CFR 412.3e].: Yes Medical Necessity: Other - Cardiac monitoring, placement pending.
[2019-06-12] MEDS: METOPROLOL TARTRATE PF/INJ 5 MG/5 ML SDV IV PRN (15:28)
[2019-06-12] MEDS: NYSTATIN TOPICAL POWDER 15 GM TP SCH (17:29)
[2019-06-12] MEDS: TRAZODONE HCL 50 MG TABLET PO SCH (21:37)
[2019-06-12] MEDS: DONEPEZIL HCL 5 MG TABLET PO SCH (21:38)
[2019-06-13] MEDS: HEPARIN SOD (PORCINE) 5,000 UNIT/ML 1 ML VIAL SUBCUT SCH ×3 (06:11→22:30)
--- NOTE | 2019-06-13 09:56 | PDOC PROGRESS REPORT ---
Subjective Progress Note for:: 06/13/19 Subjective:: No complaints at this time, patient resting comfortably in bed and per RN no complaints overnight. 06/13/2019-no complaints at this time. No complaints overnight per RN. Reason For Visit: ATRIAL FLUTTER,ATRIAL FIBRILLATION WITH RVR,ACUTE Physical Exam Vital Signs: Temp Pulse Resp BP Pulse Ox 97.8 F 93 16 112/42 L 99 06/13/19 07:38 06/13/19 07:38 06/13/19 07:38 06/13/19 07:38 06/13/19 07:38 Intake & Output 06/12/19 06/13/19 06/14/19 06:59 06:59 06:59 Intake Total 50 400 Balance 50 400 Weight 63.4 kg 61.4 kg General appearance: PRESENT: no acute distress, well-developed, well-nourished Neck exam: ABSENT: carotid bruit, JVD, lymphadenopathy, thyromegaly Respiratory exam: PRESENT: decreased breath sounds, symmetrical, unlabored Cardiovascular exam: PRESENT: RRR. ABSENT: diastolic murmur, rubs, systolic murmur Vascular exam: PRESENT: normal capillary refill GI/Abdominal exam: PRESENT: normal bowel sounds, soft. ABSENT: distended, guarding, mass, organolmegaly, rebound, tenderness Extremities exam: PRESENT: full ROM, other - Upper extremities with dependent edema. ABSENT: calf tenderness, clubbing, pedal edema Neurological exam: PRESENT: alert, awake Psychiatric exam: PRESENT: appropriate affect, normal mood. ABSENT: homicidal ideation, suicidal ideation Results Laboratory Results: 06/11/19 05:38 06/12/19 04:18 06/02/19 06/03/19 06/03/19 21:20 00:30 00:30 Creatine Kinase < 20 L CK-MB (CK-2) Troponin I 0.012 NT-Pro-B Natriuret Pep 2350 H 06/03/19 06/03/19 06/03/19 07:33 13:40 13:40 Creatine Kinase 22 L CK-MB (CK-2) 1.21 1.25 Troponin I 0.012 < 0.012 NT-Pro-B Natriuret Pep 06/03/19 06/03/19 19:12 19:12 Creatine Kinase 24 L CK-MB (CK-2) 1.38 Troponin I < 0.012 NT-Pro-B Natriuret Pep Impressions: Chest X-Ray 06/02/19 20:39 IMPRESSION: No acute cardiopulmonary findings. Assessment and Plan - Diagnosis (1) Complicated UTI (urinary tract infection) Is this a current diagnosis for this admission?: Yes Plan: Urine culture positive for Klebsiella pansensitive. History of recurrent UTIs. Review of chart shows patient has had UTI due to Pseudomonas and E. coli. Culture positive for Klebsiella pansensitive. Received 7 days of antibiotics. DC antibiotics 06/10/2019. Day 4 p.o. levofloxacin. Received 3 days of IV antibiotics. Received 1 dose of ceftriaxone. DC ceftriaxone. Received 1 day of levofloxacin. Had to be DC'd because patient started complaining of itching. Cefepime day 1. 06/12/2019-resolved at this time. Patient awaiting placement. 06/13/2019-resolved (2) Acute encephalopathy Is this a current diagnosis for this admission?: Yes Plan: Stable. Metabolic encephalopathy due to underlying UTI complicated by underlyi ng dementia. Continue home meds, seizure, fall, aspiration precautions. Pending placement. 06/12/2019-stable. Continue seizure fall aspiration precautions. Awaiting placement. 06/13/2019-stable. Continue seizure, fall, aspiration precautions. Awaiting placement (3) Atrial fibrillation with RVR Is this a current diagnosis for this admission?: Yes Plan: Suspecting dementia related delirium prevented scheduled p.o. Cardizem. Continue IV Cardizem, patient not a candidate for chronic anticoagulation secondary to severe dementia with delirium 06/12/2019-rate controlled at this time. Continue oral Cardizem. 06/13/2019-rate controlled (4) COPD (chronic obstructive pulmonary disease) Qualifiers: Emphysema type: unspecified Is this a current diagnosis for this admission?: Yes Plan: Currently not exacerbated. Continue duo nebs, Proventil oxygen, PRN BiPAP, LABA's/LAMA's. Outpatient pulmonary follow-up. 06/12/2019-stable. Will continue duo nebs oxygen and as needed BiPAP. Patient will follow-up with primary and pulmonology on outpatient basis. 06/13/2019-stable. Continue supportive measures. (5) Diabetes mellitus Qualifiers: Diabetes mellitus type: type 2 Is this a current diagnosis for this admission?: Yes Plan: Controlled. 03/17/2019 A1c 5.9. Takes glyburide as outpatient. Diabetic diet, sliding scale insulin, Accu-Chek, hypoglycemia protocol, adjust dosage as needed. Restart home meds upon discharge. Outpatient PCP follow-up. 06/12/2019-stable. Continue sliding scale insulin before meals and at bedtime adjust as needed per patient needs. Restart home medications on upon placement. 06/13/2019-stable - Time Time Spent with patient: Less than 15 minutes - Inpatient Certification Based on my medical assessment, after consideration of the patient's comorbidities, presenting symptoms, or acuity I expect that the services needed warrant INPATIENT care.: Yes I certify that my determination is in accordance with my understanding of Medicare's requirements for reasonable and necessary INPATIENT services [42 CFR 412.3e].: Yes Medical Necessity: Need For Continuous Telemetry Monitoring, Other - Awaiting placement
[2019-06-13] MEDS: INSULIN LISPRO 100 UNIT/ML 3 ML VIAL SUBCUT SCH ×4 (10:31→22:29)
[2019-06-13] MEDS: DIVALPROEX SODIUM 250 MG TABLET.DR PO SCH ×3 (10:31→22:29)
[2019-06-13 10:38] LABS: HEMATOCRIT 28.6 % (36.0-47.0); MEAN CORPUSCULAR HEMOGLOBIN 27.1 pg (27.0-33.4); MEAN CORPUSCULAR HGB CONC 31.6 g/dL (32.0-36.0); MEAN CORPUSCULAR VOLUME 86 fl (80-97); PLATELET COUNT 274 10^3/uL (150-450); RED BLOOD COUNT 3.33 10^6/uL (3.72-5.28); RED CELL DISTRIBUTION WIDTH 18.6 % (11.5-14.0); WHITE BLOOD COUNT 11.9 10^3/uL (4.0-10.5)
[2019-06-13 10:55] LABS: ANION GAP 6 (5-19); BLOOD UREA NITROGEN 12 mg/dL (7-20); CALCIUM 8.9 mg/dL (8.4-10.2); CARBON DIOXIDE 29 mmol/L (22-30); CHLORIDE 106 mmol/L (98-107); GLUCOSE 165 mg/dL (75-110); POTASSIUM 3.8 mmol/L (3.6-5.0)
[2019-06-13] MEDS: MESALAMINE 400 MG CAPSULE.DR PO SCH ×3 (10:56→17:32)
[2019-06-13] MEDS: DILTIAZEM HCL 180 MG CAPSULE.CR PO SCH (10:56)
[2019-06-13] MEDS: DULOXETINE HCL 30 MG CAPSULE.DR PO SCH (10:56)
[2019-06-13] MEDS: FUROSEMIDE 20 MG TABLET PO SCH (10:56)
[2019-06-13] MEDS: CYANOCOBALAMIN (VITAMIN B-12) INJ 1000 MCG/1 ML VIAL IM SCH (10:56)
[2019-06-13] MEDS: MEGESTROL ACETATE SUSP 400 MG/10 ML UDCUP PO SCH (10:57)
[2019-06-13] MEDS: DOCUSATE SODIUM 100 MG CAPSULE PO SCH ×2 (10:57→17:32)
[2019-06-13] MEDS: LISINOPRIL 10 MG TABLET PO SCH (10:57)
[2019-06-13] MEDS: RISPERIDONE 0.25 MG TABLET PO SCH ×2 (10:57→22:29)
[2019-06-13] MEDS: TIOTROPIUM BROMIDE DPI 5 CAP/KIT (18 MCG/CAP) IH SCH (10:57)
[2019-06-13] MEDS: NYSTATIN TOPICAL POWDER 15 GM TP SCH ×2 (10:58→17:32)
[2019-06-13] MEDS: METOPROLOL TARTRATE PF/INJ 5 MG/5 ML SDV IV PRN (13:41)
[2019-06-13] MEDS ORDERED: METOPROLOL TARTRATE PF/INJ 5 MG/5 ML SDV IV ONE (15:00)
[2019-06-13] MEDS: ACETAMINOPHEN 325 MG TABLET PO PRN (19:58)
[2019-06-13] MEDS: DONEPEZIL HCL 5 MG TABLET PO SCH (22:29)
[2019-06-13] MEDS: TRAZODONE HCL 50 MG TABLET PO SCH (22:29)
[2019-06-14] MEDS: HEPARIN SOD (PORCINE) 5,000 UNIT/ML 1 ML VIAL SUBCUT SCH ×3 (05:31→21:31)
[2019-06-14] MEDS: DIVALPROEX SODIUM 250 MG TABLET.DR PO SCH ×3 (06:24→21:30)
[2019-06-14] MEDS: INSULIN LISPRO 100 UNIT/ML 3 ML VIAL SUBCUT SCH ×4 (08:29→21:30)
[2019-06-14] MEDS: DILTIAZEM HCL 180 MG CAPSULE.CR PO SCH (09:11)
[2019-06-14] MEDS: MESALAMINE 400 MG CAPSULE.DR PO SCH ×3 (09:14→17:32)
[2019-06-14] MEDS: FUROSEMIDE 20 MG TABLET PO SCH (09:15)
[2019-06-14] MEDS: RISPERIDONE 0.25 MG TABLET PO SCH ×2 (09:16→21:30)
[2019-06-14] MEDS: LISINOPRIL 10 MG TABLET PO SCH (09:16)
[2019-06-14] MEDS: DULOXETINE HCL 30 MG CAPSULE.DR PO SCH (09:19)
[2019-06-14] MEDS: DOCUSATE SODIUM 100 MG CAPSULE PO SCH ×2 (09:20→17:32)
[2019-06-14] MEDS: MEGESTROL ACETATE SUSP 400 MG/10 ML UDCUP PO SCH (09:20)
[2019-06-14] MEDS: CYANOCOBALAMIN (VITAMIN B-12) INJ 1000 MCG/1 ML VIAL IM SCH (09:21)
[2019-06-14] MEDS: TIOTROPIUM BROMIDE DPI 5 CAP/KIT (18 MCG/CAP) IH SCH (09:21)
[2019-06-14] MEDS: NYSTATIN TOPICAL POWDER 15 GM TP SCH ×2 (09:22→17:33)
[2019-06-14 10:45] LABS: HEMATOCRIT 25.7 % (36.0-47.0); HEMOGLOBIN 8.2 g/dL (12.0-15.5); MEAN CORPUSCULAR HEMOGLOBIN 27.1 pg (27.0-33.4); MEAN CORPUSCULAR HGB CONC 31.9 g/dL (32.0-36.0); MEAN CORPUSCULAR VOLUME 85 fl (80-97); PLATELET COUNT 274 10^3/uL (150-450); RED BLOOD COUNT 3.03 10^6/uL (3.72-5.28); RED CELL DISTRIBUTION WIDTH 18.5 % (11.5-14.0); WHITE BLOOD COUNT 11.7 10^3/uL (4.0-10.5)
[2019-06-14 11:16] LABS: BLOOD UREA NITROGEN 15 mg/dL (7-20); CALCIUM 8.6 mg/dL (8.4-10.2); CHLORIDE 103 mmol/L (98-107); GLUCOSE 168 mg/dL (75-110); POTASSIUM 3.8 mmol/L (3.6-5.0)
[2019-06-14 11:21] LABS: ANION GAP 5 (5-19); CARBON DIOXIDE 30 mmol/L (22-30)
--- NOTE | 2019-06-14 12:21 | PDOC PROGRESS REPORT ---
Subjective Progress Note for:: 06/14/19 Subjective:: No complaints at this time, patient resting comfortably in bed and per RN no complaints overnight. 06/13/2019-no complaints at this time. No complaints overnight per RN. 06/14/2019- no complaints per staff nuclear medicine technologist Reason For Visit: ATRIAL FLUTTER,ATRIAL FIBRILLATION WITH RVR,ACUTE Physical Exam Vital Signs: Temp Pulse Resp BP Pulse Ox 98.4 F 81 17 142/76 H 97 06/14/19 08:00 06/14/19 08:00 06/14/19 08:00 06/14/19 08:00 06/14/19 08:00 Intake & Output 06/13/19 06/14/19 06/15/19 06:59 06:59 06:59 Intake Total 400 437 Balance 400 437 Weight 61.4 kg 66.7 kg General appearance: PRESENT: no acute distress, thin Head exam: PRESENT: atraumatic, normocephalic Eye exam: PRESENT: conjunctiva pink, EOMI, PERRLA. ABSENT: scleral icterus Ear exam: PRESENT: normal external ear exam Mouth exam: PRESENT: moist, tongue midline Neck exam: ABSENT: carotid bruit, JVD, lymphadenopathy, thyromegaly Respiratory exam: PRESENT: clear to auscultation jasson, decreased breath sounds. ABSENT: rales, rhonchi, wheezes Cardiovascular exam: PRESENT: RRR. ABSENT: diastolic murmur, rubs, systolic murmur Pulses: PRESENT: normal dorsalis pedis pul Vascular exam: PRESENT: normal capillary refill GI/Abdominal exam: PRESENT: normal bowel sounds, soft. ABSENT: distended, guarding, mass, organolmegaly, rebound, tenderness Rectal exam: PRESENT: deferred Extremities exam: PRESENT: full ROM. ABSENT: calf tenderness, clubbing, pedal edema Neurological exam: PRESENT: alert, awake. ABSENT: motor sensory deficit Psychiatric exam: PRESENT: other - Sleeping Results Laboratory Results: 06/14/19 10:14 06/14/19 10:14 06/14/19 06/14/19 10:14 10:14 WBC 11.7 H RBC 3.03 L Hgb 8.2 L Hct 25.7 L MCV 85 MCH 27.1 MCHC 31.9 L RDW 18.5 H Plt Count 274 Sodium 138.4 Potassium 3.8 Chloride 103 Carbon Dioxide 30 Anion Gap 5 BUN 15 Creatinine 0.67 Est GFR ( Amer) > 60 Est GFR (Non-Af Amer) > 60 Glucose 168 H Calcium 8.6 06/02/19 06/03/19 06/03/19 21:20 00:30 00:30 Creatine Kinase < 20 L CK-MB (CK-2) Troponin I 0.012 NT-Pro-B Natriuret Pep 2350 H 06/03/19 06/03/19 06/03/19 07:33 13:40 13:40 Creatine Kinase 22 L CK-MB (CK-2) 1.21 1.25 Troponin I 0.012 < 0.012 NT-Pro-B Natriuret Pep 06/03/19 06/03/19 19:12 19:12 Creatine Kinase 24 L CK-MB (CK-2) 1.38 Troponin I < 0.012 NT-Pro-B Natriuret Pep Impressions: Chest X-Ray 06/02/19 20:39 IMPRESSION: No acute cardiopulmonary findings. Assessment and Plan - Diagnosis (1) Complicated UTI (urinary tract infection) Is this a current diagnosis for this admission?: Yes Plan: Urine culture positive for Klebsiella pansensitive. History of recurrent UTIs. Review of chart shows patient has had UTI due to Pseudomonas and E. coli. Culture positive for Klebsiella pansensitive. Received 7 days of antibiotics. DC antibiotics 06/10/2019. Day 4 p.o. levofloxacin. Received 3 days of IV antibiotics. Received 1 dose of ceftriaxone. DC ceftriaxone. Received 1 day of levofloxacin. Had to be DC'd because patient started complaining of itching. Cefepime day 1. 06/12/2019-resolved at this time. Patient awaiting placement. 06/13/2019-resolved 06/14/2019-resolved (2) Acute encephalopathy Is this a current diagnosis for this admission?: Yes Plan: Stable. Metabolic encephalopathy due to underlying UTI complicated by underlying dementia. Continue home meds, seizure, fall, aspiration precautions. Pending placement. 06/12/2019-stable. Continue seizure fall aspiration precautions. Awaiting placement. 06/13/2019-stable. Continue seizure, fall, aspiration precautions. Awaiting placement 06/14/2019-stable, continue seizure, fall, aspiration precautions,. Awaiting placement (3) Atrial fibrillation with RVR Is this a current diagnosis for this admission?: Yes Plan: Suspecting dementia related delirium prevented scheduled p.o. Cardizem. Continue IV Cardizem, patient not a candidate for chronic anticoagulation secondary to severe dementia with delirium 06/12/2019-rate controlled at this time. Continue oral Cardizem. 06/13/2019-rate controlled 06/14/2019-controlled stable (4) COPD (chronic obstructive pulmonary disease) Qualifiers: Emphysema type: unspecified Is this a current diagnosis for this admission?: Yes Plan: Currently not exacerbated. Continue duo nebs, Proventil oxygen, PRN BiPAP, LABA's/LAMA's. Outpatient pulmonary follow-up. 06/12/2019-stable. Will continue duo nebs oxygen and as needed BiPAP. Patient will follow-up with primary and pulmonology on outpatient basis. 06/13/2019-stable. Continue supportive measures. 06/14/2019-stable continue supportive measures (5) Diabetes mellitus Qualifiers: Diabetes mellitus type: type 2 Is this a current diagnosis for this admission?: Yes Plan: Controlled. 03/17/2019 A1c 5.9. Takes glyburide as outpatient. Diabetic diet, sliding scale insulin, Accu-Chek, hypoglycemia protocol, adjust dosage as needed. Restart home meds upon discharge. Outpatient PCP follow-up. 06/12/2019-stable. Continue sliding scale insulin before meals and at bedtime adjust as needed per patient needs. Restart home medications on upon placement. 06/13/2019-stable 06/14/2019-chronic stable - Time Time Spent with patient: Less than 15 minutes - Inpatient Certification Based on my medical assessment, after consideration of the patient's comorbidities, presenting symptoms, or acuity I expect that the services needed warrant INPATIENT care.: Yes I certify that my determination is in accordance with my understanding of Medicare's requirements for reasonable and necessary INPATIENT services [42 CFR 412.3e].: Yes Medical Necessity: Other - Continuous monitoring, await placement
[2019-06-14] MEDS: METOPROLOL TARTRATE PF/INJ 5 MG/5 ML SDV IV PRN (15:40)
[2019-06-14] MEDS: DONEPEZIL HCL 5 MG TABLET PO SCH (21:30)
[2019-06-14] MEDS: TRAZODONE HCL 50 MG TABLET PO SCH (21:30)
[2019-06-15] MEDS: HEPARIN SOD (PORCINE) 5,000 UNIT/ML 1 ML VIAL SUBCUT SCH ×2 (07:01→14:59)
[2019-06-15] MEDS: DIVALPROEX SODIUM 250 MG TABLET.DR PO SCH ×2 (07:01→14:59)
[2019-06-15] MEDS: DULOXETINE HCL 30 MG CAPSULE.DR PO SCH (08:02)
[2019-06-15] MEDS: METOPROLOL TARTRATE PF/INJ 5 MG/5 ML SDV IV PRN (08:05)
[2019-06-15] MEDS: INSULIN LISPRO 100 UNIT/ML 3 ML VIAL SUBCUT SCH ×3 (08:09→17:21)
[2019-06-15] MEDS: DOCUSATE SODIUM 100 MG CAPSULE PO SCH ×2 (09:21→17:29)
[2019-06-15] MEDS: DILTIAZEM HCL 180 MG CAPSULE.CR PO SCH (09:21)
[2019-06-15] MEDS: MEGESTROL ACETATE SUSP 400 MG/10 ML UDCUP PO SCH (09:22)
[2019-06-15] MEDS: RISPERIDONE 0.25 MG TABLET PO SCH (09:22)
[2019-06-15] MEDS: FUROSEMIDE 20 MG TABLET PO SCH (09:22)
[2019-06-15] MEDS: LISINOPRIL 10 MG TABLET PO SCH (09:22)
[2019-06-15] MEDS: MESALAMINE 400 MG CAPSULE.DR PO SCH ×3 (09:23→17:29)
[2019-06-15] MEDS: CYANOCOBALAMIN (VITAMIN B-12) INJ 1000 MCG/1 ML VIAL IM SCH (09:23)
[2019-06-15] MEDS: TIOTROPIUM BROMIDE DPI 5 CAP/KIT (18 MCG/CAP) IH SCH (09:23)
[2019-06-15] MEDS: NYSTATIN TOPICAL POWDER 15 GM TP SCH ×2 (09:24→17:29)
[2019-06-15] MEDS ORDERED: CARVEDILOL 3.125 MG TABLET PO SCH (10:00)
[2019-06-15 11:21] LABS: HEMATOCRIT 25.7 % (36.0-47.0); HEMOGLOBIN 8.3 g/dL (12.0-15.5); MEAN CORPUSCULAR HEMOGLOBIN 27.7 pg (27.0-33.4); MEAN CORPUSCULAR HGB CONC 32.3 g/dL (32.0-36.0); MEAN CORPUSCULAR VOLUME 86 fl (80-97); PLATELET COUNT 240 10^3/uL (150-450); RED CELL DISTRIBUTION WIDTH 18.2 % (11.5-14.0); WHITE BLOOD COUNT 11.2 10^3/uL (4.0-10.5)
[2019-06-15 11:48] LABS: BLOOD UREA NITROGEN 15 mg/dL (7-20); CALCIUM 8.6 mg/dL (8.4-10.2); CARBON DIOXIDE 31 mmol/L (22-30); GLUCOSE 126 mg/dL (75-110)
[2019-06-15 12:08] LABS: ANION GAP 6 (5-19); CHLORIDE 102 mmol/L (98-107)
--- NOTE | 2019-06-15 15:26 | PDOC DISCHARGE SUMMARY ---
General - Admit/Disc Date/PCP Admission Date/Primary Care Provider: 06/03/19 01:43 JEANIE CANADA PA-C Discharge Date: 06/15/19 - Discharge Diagnosis (1) Atrial fibrillation with RVR Is this a current diagnosis for this admission?: Yes Summary: Suspected dementia related delirium preventive scheduled p.o. Cardizem resulting in atrial fibrillation with RVR. Patient was initially placed on IV diltiazem, has been successfully transitioned to p.o. Cardizem CD 180 mg p.o. daily with carvedilol 3.125 mg p.o. every 12 hours for rate control. Due to the patient's age, advanced dementia, frailty, fall risk and associated bleeding risk, she is not a candidate for chronic anticoagulation. (2) Acute encephalopathy Is this a current diagnosis for this admission?: Yes Summary: Resolved; at baseline per family. Secondary to UTI and possibly atrial fibrillation with RVR; complicated by underlying advanced dementia. Family members report that she is nearly returned to her baseline; she is alert and oriented to self only. She does ambulate with walker and assistance. Initially family members requested SNF placement, however, have now decided to take the patient home with 24-hour supervision provided by family members and home health services. (3) COPD (chronic obstructive pulmonary disease) Is this a current diagnosis for this admission?: Yes Summary: Stable and without exacerbation at this time. Continue home dose Spiriva and albuterol HFA as needed. (4) Complicated UTI (urinary tract infection) Is this a current diagnosis for this admission?: Yes Summary: Resolved. Urinalysis revealed urinary tract infection. Urine culture positive for pansensitive Klebsiella pneumonia. Completed 7-day course of antibiotics. (5) Diabetes mellitus Is this a current diagnosis for this admission?: Yes Summary: Well-controlled; A1c (03/17/2019) 5.9%. Recommend discontinuing glyburide secondary to age, advanced dementia, and fall risk. For patient of her age and life expectancy, it is appropriate to have a goal of less than 8.5%. Continue diabetic diet and home dose metformin. Follow-up with primary care provider for continued management. - Additional Information Resuscitation Status: Full Code Discharge Diet: Cardiac, Diabetic Discharge Activity: Activity As Tolerated, Supervised Activity Prescriptions: Carvedilol [Coreg 3.125 mg Tablet] 3.125 mg PO Q12 #60 tablet Diltiazem HCl [Cardizem Cd 180 mg Capsule] 180 mg PO DAILY #30 capsule.cr Haloperidol [Haldol 0.5 mg Tablet] 0.25 mg PO Q8HP PRN #12 tablet PRN Reason: agitation Melatonin [Melatonin 5 mg Tablet] 5 mg PO QHS #30 tablet Home Medications: Donepezil HCl [Aricept] 5 mg PO QHS 04/18/19 Duloxetine HCl [Cymbalta] 30 mg PO DAILY 04/18/19 Ergocalciferol (Vitamin D2) [Drisdol] 50,000 unit PO MO@0800 04/18/19 Furosemide [Lasix] 20 mg PO DAILY 04/18/19 Lisinopril [Prinivil 40 mg Tablet] 40 mg PO DAILY 04/18/19 Metformin HCl 500 mg PO BID 04/18/19 Potassium Chloride [Klor-Con 10 Meq Capsule ER] 10 meq PO DAILY 04/18/19 Tizanidine HCl 2 mg PO Q8HP PRN 04/18/19 Albuterol Sulfate [Proair HFA Inhalation Aerosol 8.5 gm MDI] 1 puff IH Q6HP PRN 04/26/19 Buspirone HCl [Buspar 5 mg Tablet] 5 mg PO Q12 04/26/19 Divalproex Sodium [Depakote] 250 mg PO Q8 04/26/19 Risperidone [Risperdal 0.25 mg Tablet] 0.25 mg PO BID@0800,1600 04/26/19 Tiotropium [place] [Spiriva Handihaler 5 Cap/Kit (18 Mcg/Cap)] 1 puff IH DAILY 04/26/19 Mesalamine [Asacol Sr 400 mg Capsule] 800 mg PO TID 06/03/19 Trazodone HCl [Desyrel 50 mg Tablet] 50 mg PO QHS MDD 2 TABS 06/03/19 Acetaminophen [Tylenol 325 mg Tablet] 650 mg PO Q4HP PRN tablet 06/15/19 Carvedilol [Coreg 3.125 mg Tablet] 3.125 mg PO Q12 #60 tablet 06/15/19 Diltiazem HCl [Cardizem Cd 180 mg Capsule] 180 mg PO DAILY #30 capsule.cr 06/15/19 Docusate Sodium [Colace 100 mg Capsule] 100 mg PO BID capsule 06/15/19 Haloperidol [Haldol 0.5 mg Tablet] 0.25 mg PO Q8HP PRN #12 tablet 06/15/19 Melatonin [Melatonin 5 mg Tablet] 5 mg PO QHS #30 tablet 06/15/19 History of Present Illness History of Present Illness: Per H&P by Dr. Meeks: JOSE DANIEL LONG is a 78 year old female with a past medical history of advanced dementia, atrial fibrillation, congestive heart failure and recurrent UTIs. Patient is brought by family members who are no longer present but had concern for worsening mental status over the last 2 weeks. Patient is sedated following severe agitation, unable to obtain history aside from the chart. Work-up reveals A. fib with RVR she requires restraint, sedation, IV Cardizem and digoxin 0.5 IV results again conversion to normal sinus rhythm. She appears comfortable, is unable to provide history resides with HER-2 daughters. Physical Exam Vital Signs: Temp Pulse Resp BP Pulse Ox 98.1 F 78 18 113/49 L 99 06/15/19 11:23 06/15/19 11:23 06/15/19 11:23 06/15/19 11:23 06/15/19 11:23 Intake & Output 06/14/19 06/15/19 06/16/19 06:59 06:59 06:59 Intake Total 437 720 360 Balance 437 720 360 Weight 66.7 kg 71.8 kg General appearance: PRESENT: no acute distress, hard of hearing, well-developed, well-nourished - Overweight Head exam: PRESENT: atraumatic, normocephalic Eye exam: PRESENT: conjunctiva pink, EOMI, PERRLA. ABSENT: scleral icterus Ear exam: PRESENT: normal external ear exam Mouth exam: PRESENT: moist, tongue midline Neck exam: ABSENT: carotid bruit, JVD, lymphadenopathy, thyromegaly Respiratory exam: PRESENT: clear to auscultation jasson, symmetrical, unlabored. ABSENT: rales, rhonchi, wheezes Cardiovascular exam: PRESENT: irregular rhythm, +S1, +S2. ABSENT: diastolic murmur, rubs, systolic murmur Pulses: PRESENT: normal dorsalis pedis pul Vascular exam: PRESENT: normal capillary refill GI/Abdominal exam: PRESENT: normal bowel sounds, soft. ABSENT: distended, guarding, mass, organolmegaly, rebound, tenderness Rectal exam: PRESENT: deferred Extremities exam: PRESENT: full ROM. ABSENT: calf tenderness, clubbing, pedal edema Neurological exam: PRESENT: alert, awake, oriented to person, CN II-XII grossly intact, other - Fatigued; wakes easily when I say her name. At baseline per family.. ABSENT: motor sensory deficit Psychiatric exam: PRESENT: appropriate affect, normal mood. ABSENT: homicidal ideation, suicidal ideation Skin exam: PRESENT: dry, intact, warm. ABSENT: cyanosis, rash Results Laboratory Results: 06/15/19 11:12 06/15/19 11:12 06/15/19 06/15/19 11:12 11:12 WBC 11.2 H RBC 3.00 L Hgb 8.3 L Hct 25.7 L MCV 86 MCH 27.7 MCHC 32.3 RDW 18.2 H Plt Count 240 Sodium 139.0 Potassium 4.0 Chloride 102 Carbon Dioxide 31 H Anion Gap 6 BUN 15 Creatinine 0.63 Est GFR ( Amer) > 60 Est GFR (Non-Af Amer) > 60 Glucose 126 H Calcium 8.6 06/02/19 06/03/19 06/03/19 21:20 00:30 00:30 Creatine Kinase < 20 L CK-MB (CK-2) Troponin I 0.012 NT-Pro-B Natriuret Pep 2350 H 06/03/19 06/03/19 06/03/19 07:33 13:40 13:40 Creatine Kinase 22 L CK-MB (CK-2) 1.21 1.25 Troponin I 0.012 < 0.012 NT-Pro-B Natriuret Pep 06/03/19 06/03/19 19:12 19:12 Creatine Kinase 24 L CK-MB (CK-2) 1.38 Troponin I < 0.012 NT-Pro-B Natriuret Pep Impressions: Chest X-Ray 06/02/19 20:39 IMPRESSION: No acute cardiopulmonary findings. Qualifiers - * PATIENT BEING DISCHARGED WITH ANY OF THE FOLLOWING DIAGNOSIS: No Acute Heart Failure - Is this a Heart Failure Patient?: No Plan Discharge Plan: Discharged home in the care of family members with home health nursing, PT/OT, aide, and social work services. Follow-up with primary care provider within 1 week. Recommend discussing palliative care referral. Eat a consistent carb/cardiac diet. Take medications as prescribed. Return to the emergency department as needed for concerning symptoms. Time Spent: Greater than 30 Minutes
[2019-06-15 17:34] VITALS: BP 150/52
== END 2019-06-15 18:12 | disposition home health service (06) | DRG 308 ==
LOC: ER 20:30 → EH 06-03 01:43 → 3W 06-03 17:59
PROVIDERS: ADMIT Internal Medicine; ATTEND Internal Medicine
DX: I48.91 Unspecified atrial fibrillation (principal); G93.41 Metabolic encephalopathy; N39.0 Urinary tract infection, site not specified; K50.00 Crohn's disease of small intestine without complications; F03.90 Unspecified dementia, unspecified severity, without behavioral disturbance, psychotic disturbance, mood disturbance, and anxiety; J44.9 Chronic obstructive pulmonary disease, unspecified; D64.9 Anemia, unspecified; E11.8 Type 2 diabetes mellitus with unspecified complications; E87.6 Hypokalemia; R41.0 Disorientation, unspecified; E53.8 Deficiency of other specified B group vitamins; K64.8 Other hemorrhoids; B96.20 Unspecified Escherichia coli [E. coli] as the cause of diseases classified elsewhere; B96.5 Pseudomonas (aeruginosa) (mallei) (pseudomallei) as the cause of diseases classified elsewhere; Z79.84 Long term (current) use of oral hypoglycemic drugs; Z79.4 Long term (current) use of insulin; Z79.51 Long term (current) use of inhaled steroids; Z79.899 Other long term (current) drug therapy
CPT/HCPCS: 36415; 36600; 71045; 80048; 80053; 81001; 82550; 82553; 82607; 82728; 82746; 82803; 82962; 83540; 83550; 83735; 83880; 84132; 84439; 84443; 84481; 84484; 85025; 85027; 85045; 87040; 87086; 87088; 87186; 93005; 93010; 96365; 96366; 96372; 96375; 99291; J0360; J0692; J0696; J1160; J1630; J1644; J1815; J1940; J1956; J3360; J3411; J3420; J3486; J3490; J7030; J7042; J7050; J7060

== ENCOUNTER 2019-07-02 20:08 | Emergency (ER) | payer MEDICARE, MEDICAID ==
[2019-07-02] MEDS ORDERED: RINGERS SOLUTION,LACTATED 1,000 ML IV ONE (21:54)
--- NOTE | 2019-07-02 22:02 | ER Document Report ---
ED General - General Chief Complaint: Other Stated Complaint: WEAKNESS Time Seen by Provider: 07/02/19 21:41 Primary Care Provider: JEANIE CANADA PA-C [Primary Care Provider] - Follow up as needed TRAVEL OUTSIDE OF THE [place] IN LAST 30 DAYS: No - HPI Notes: 78-year-old female with a history of of Alzheimer's dementia presents with abdominal pain, "frog in her throat". Known history is limited, patient has severe Alzheimer's dementia, is disoriented and only counts allow. Both of her daughters are at the bedside and provide all information. They are concerned because yesterday she said she felt like she had a frog in her throat, not been eating or drinking well. However they indicate she was able get down to corndog and fluids today. Decreased urine output. Concerned because she just seems to be weaker than normal. He also indicates she has not slept in 3 days. They feel that her abdomen is distended more than normal. No falls, no trauma. No medication changes. Remainder history is limited by clinical condition. Not on anticoagulation - Related Data Allergies/Adverse Reactions: No Known Allergies Allergy (Verified 04/26/19 10:46) Past Medical History - General Information source: Relative - Social History Smoking Status: Unknown if Ever Smoked Family History: Reviewed & Not Pertinent, Hypertension - Medical History Notes: Includes Alzheimer's dementia - Past Medical History Cardiac Medical History: Reports: Hx Atrial Fibrillation, Hx Hypertension Pulmonary Medical History: Reports: Hx COPD Neurological Medical History: Denies: Hx Seizures Endocrine Medical History: Reports: Hx Diabetes Mellitus Type 2 Renal/ Medical History: Denies: Hx Peritoneal Dialysis GI Medical History: Reports: Hx Crohn's Disease Psychiatric Medical History: Reports: Hx Dementia, Hx Depression Past Surgical History: Reports: Hx Abdominal Surgery - untwist intestine, Hx Orthopedic Surgery Review of Systems - Review of Systems -: Yes ROS unobtainable due to patient's medical condition Physical Exam - Vital signs Vitals: Temp 99.3 F 07/02/19 20:15 - Notes Notes: General: Well developed . HEENT: Normocephalic, atraumatic. Pupils equal round reactive to light. No JVD. Mucosa Chest: No trauma. Respiratory: Good air exchange, normal excursion. Cardiac: Regular rhythm. No murmurs or gallops. Abdomen: Soft, moderately distended and mildly tympanic. Diffusely mildly tender. Back: No asymmetry or gross abnormality. Motor: Decreased tone and power Neurologic: Eyes open, awake, counting out loud. Nonlateralizing, does not cooperate with finer neurologic testing Vascular: Well perfused. Normal peripheral pulses. Skin: No petechiae or purpura. Course - Re-evaluation Re-evalutation: 07/02/19 22:12 78-year-old female with the after mentioned symptoms, certainly concerning for intra-abdominal emergency such as obstruction. She has been eating and drinking since then I think a esophageal food impaction or airway obstruction is very unlikely. Consider line sepsis such as UTI or pneumonia. Plan to proceed with IV hydration, conference of lab for evaluation, acute abdominal series, serial exams and reassess. 07/03/19 03:14 Labs reviewed. White count 26,000, no bands. Proceed with an 8.1. Chemistries LFTs unremarkable. Urine unremarkable. Acute abdominal series shows no acute free air and/or obstruction. Patient continued significant distention and pain and tenderness. In light of this, CT imaging is obtained. CT imaging shows a large approximately 14 x 13 cm air-fluid cystic structure consistent with likely abscess. Patient has been hemodynamically stable throughout ED course. She does meet criteria for sepsis syndrome. Lactate of note is normal. She is received volume resuscitation judiciously given age and comorbidities. IV Zosyn is given. Case discussed with Dr. Livingston the on-call surgeon who felt that she would best be served by transfer to a facility with a higher level of care and the potential for interventional radiology management. I spoke with the on-call surgeon at [facility] and they have accepted the patient for transfer to the ED [facility]. - Vital Signs Vital signs: Temp Pulse Resp BP Pulse Ox 99.3 F 14 96/40 L 94 07/02/19 20:15 07/03/19 02:01 07/03/19 02:01 07/03/19 02:01 - Laboratory Result Diagrams: 07/02/19 22:25 07/02/19 22:25 Laboratory results interpreted by me: 07/02/19 07/02/19 07/02/19 22:24 22:25 22:25 WBC 26.8 H RBC 3.03 L Hgb 8.1 L Hct 25.8 L MCH 26.7 L MCHC 31.4 L RDW 16.9 H Seg Neuts % (Manual) 90 H Lymphocytes % (Manual) 3 L Abs Neuts (Manual) 24.1 H Sodium 136.3 L BUN 37 H Est GFR ( Amer) 59 L Est GFR (Non-Af Amer) 49 L Glucose 169 H POC Glucose 172 H Total Protein 6.0 L Albumin 2.9 L Critical Care Note - Critical Care Note Total time excluding time spent on procedures (mins): 35 Comments: Includes resuscitation, evaluation, management, evaluation of images and arranging transfer and discussing the case with consultants. Discharge - Discharge Clinical Impression: Intra-abdominal abscess Condition: Serious Disposition: [facility] Referrals: JEANIE CANADA PA-C [Primary Care Provider] - Follow up as needed
[2019-07-02 22:48] LABS: HEMATOCRIT 25.8 % (36.0-47.0); HEMOGLOBIN 8.1 g/dL (12.0-15.5); MEAN CORPUSCULAR HEMOGLOBIN 26.7 pg (27.0-33.4); MEAN CORPUSCULAR HGB CONC 31.4 g/dL (32.0-36.0); MEAN CORPUSCULAR VOLUME 85 fl (80-97); PLATELET COUNT 349 10^3/uL (150-450); RED BLOOD COUNT 3.03 10^6/uL (3.72-5.28); RED CELL DISTRIBUTION WIDTH 16.9 % (11.5-14.0); VENOUS BLOOD HCO3 24.6 mmol/L (20-32); VENOUS BLOOD PCO2 50.5 mmHg (35-63); VENOUS BLOOD PH 7.31 (7.30-7.42); WHITE BLOOD COUNT 26.8 10^3/uL (4.0-10.5)
[2019-07-02 23:01] LABS: INTERNATIONAL RATION (INR) 1.11; PROTHROMBIN TIME 14.4 SEC (11.4-15.4)
[2019-07-02 23:08] LABS: ALBUMIN 2.9 g/dL (3.5-5.0); ALKALINE PHOSPHATASE 114 U/L (38-126); ANION GAP 9 (5-19); ASPARTATE AMINO TRANSFERASE 15 U/L (14-36); BILIRUBIN,DIRECT 0.3 mg/dL (0.0-0.4); BILIRUBIN,TOTAL 0.3 mg/dL (0.2-1.3); BLOOD UREA NITROGEN 37 mg/dL (7-20); CALCIUM 9.2 mg/dL (8.4-10.2); CARBON DIOXIDE 25 mmol/L (22-30); CHLORIDE 102 mmol/L (98-107); GLUCOSE 169 mg/dL (75-110); POTASSIUM 4.2 mmol/L (3.6-5.0)
[2019-07-02 23:19] LABS: APPEARANCE,URINE CLEAR; BILIRUBIN,URINE NEGATIVE (NEGATIVE); COLOR,URINE YELLOW; GLUCOSE, URINE NEGATIVE (NEGATIVE); KETONES,URINE NEGATIVE (NEGATIVE); LEUKOCYTE ESTERASE,URINE NEGATIVE (NEGATIVE); NITRITE,URINE NEGATIVE (NEGATIVE); PROTEIN,URINE NEGATIVE (NEGATIVE); URINE SPECIFIC GRAVITY 1.014; UROBILINOGEN,URINE NEGATIVE mg/dL (<2.0)
[2019-07-02 23:29] LABS: ABSOLUTE LYMPHOCYTES# (MANUAL) 0.8 10^3/uL (0.5-4.7); ABSOLUTE MONOCYTES # (MANUAL) 1.3 10^3/uL (0.1-1.4); BASOPHILS % (MANUAL) 0 % (0-2); EOSINOPHILS % (MANUAL) 2 % (0-6); LYMPHOCYTES % (MANUAL) 3 % (13-45); MONOCYTES % (MANUAL) 5 % (3-13); SEGMENTED NEUTROPHILS % (MAN) 90 % (42-78); TOTAL CELLS COUNTED 100
[2019-07-02 23:30] LABS: TOXIC GRANULATION 1+
[2019-07-02 23:31] LABS: ANISOCYTOSIS 2+; PLATELET COMMENT ADEQUATE
--- NOTE | 2019-07-02 23:32 | RADIOLOGY REPORT (SQ) ---
EXAM DESCRIPTION: XR ABDOMEN SUPINE AND ERECT WITH CHEST (ABD ACUTE SERIES) COMPLETED DATE/TME: 07/02/2019 21:55 CLINICAL HISTORY: 78 years, Female, abd pain and distention Compared to 06/02/2019. FINDINGS: No free intraperitoneal air. Mild amount of stool in the colon. Heart is mildly enlarged. Aortic arch is mildly calcified. No pneumothorax. No pulmonary edema. No pleural effusion. IMPRESSION: No evidence for bowel obstruction. No acute disease.
[2019-07-02] MEDS ORDERED: PIPERACILLIN/TAZOBACTAM 4.5 GM VIAL IV ONE (23:46)
[2019-07-02] MEDS ORDERED: MORPHINE SULFATE 10 MG/ML INJ IV ONE (23:49)
--- NOTE | 2019-07-03 01:35 | RADIOLOGY REPORT (SQ) ---
EXAM DESCRIPTION: CT ABDOMEN PELVIS WITH IV CONTRAST COMPLETED DATE/TME: 07/02/2019 23:45 CLINICAL HISTORY: 78 years, Female, Sepsis, abdominal pain and distention COMPARISON: None. TECHNIQUE: CT of the abdomen and pelvis was performed following intravenous administration of contrast Images stored on PACS. All CT scanners at this facility use dose modulation, iterative reconstruction, and/or weight based dosing when appropriate to reduce radiation dose to as low as reasonably achievable (ALARA). [facility]: Dose Right [facility]: CareDose [facility]: Dose Right [facility]: Teradose 4D [facility]: RealtimeBoard LIMITATIONS: Streak artifact secondary to patient arm positioning. FINDINGS: Chest: Evaluation through the lung bases reveals no focal opacity, pleural effusion or pneumothorax. Heart size is within normal limits. No pericardial effusion. Abdomen and pelvis: The liver, gallbladder, pancreas, spleen, and bilateral kidneys are within normal limits. Nonspecific thickening of the bilateral adrenal glands. Tiny foci of radiopaque density within the dependent gallbladder compatible with cholelithiasis. Prominent appearance of the bilateral RIGHT greater than LEFT renal collecting system, suspected secondary to air fluid collection. Moderate hydronephrosis and hydroureter on the RIGHT side without findings to suggest obstructive process. Tiny foci of calcification present throughout the liver and spleen suggesting sequela of granulomatous disease. Enlarged cystic air-fluid collection within the central pelvis with air-fluid level and thickened appearance of the wall, distinct separate from the decompressed bladder measures 14.8 x 13.1 cm, (series 3, image 60), raising the concern for abscess. The bladder is decompressed with an air filled appearance and Deleon balloon catheter. The vessels reveal severe atherosclerotic calcification otherwise grossly patent and normal in caliber. No abdominopelvic lymph nodes are noted to be pathologically enlarged by CT measurement criteria. The bowel is within normal limits without abnormal bowel wall thickness or bowel dilation. Large volume of fecal content present throughout the large bowel raising the question of fecal stasis or constipation. Thickened appearance of multiple small bowel loops at the level of the pelvis adjacent to the ileocolic anastomosis without dilation raising the possibility of enteritis. No free air. No free abdominopelvic fluid collections. The appendix is not identified The osseous structures reveal degenerative and postoperative changes. Chronic compression deformity and vertebroplasty cement of the L1 vertebral level. Overall the bones appear to be diffusely demineralized. IMPRESSION: 1. Enlarged cystic air-fluid collection within the central pelvis with air-fluid level and thickened appearance of the wall, distinctly separate from the decompressed bladder measures 14.8 x 13.1 cm, (series 3, image 60), raising the concern for abscess. 2. Moderate right-sided hydronephrosis and mild prominence of the LEFT renal collecting system without clear findings to suggest obstructive process may be secondary to fluid-filled mass. Cortical medullary enhancement pattern appears to be symmetric bilaterally, however on delayed imaging without flow into the right-sided ureter. 3. Thickened appearance of multiple small bowel loops without dilation raising the possibility of enteritis. 4. Large volume of fecal content present throughout the large bowel raising the question of fecal stasis or constipation. 5. Cholelithiasis. 6. Severe atherosclerotic calcification of the aortobiiliac and medium branch vessels. TECHNICAL DOCUMENTATION: Quality ID # [id number]: Final reports with documentation of one or more dose reduction techniques (e.g., Automated exposure control, adjustment of the mA and/or kV according to patient size, use of iterative reconstruction technique) copyright 2011 [employer]- All Rights Reserved
[2019-07-03] MEDS ORDERED: RINGERS SOLUTION,LACTATED 500 ML IV ONE (03:02)
[2019-07-03 05:02] VITALS: BP 115/53
--- NOTE | 2019-07-03 10:32 | EKG REPORT ---
SEVERITY:- BORDERLINE ECG - SINUS TACHYCARDIA WITH FREQUENT APCs VENTRICULAR PREMATURE COMPLEX : Confirmed by: Martinez Goddard 03-Jul-2019 10:30:43
== END 2019-07-03 05:00 | disposition short-term general hospital (02) ==
LOC: ER 20:08
DX: K65.1 Peritoneal abscess (principal); R53.1 Weakness; G30.9 Alzheimer's disease, unspecified; F02.80 Dementia in other diseases classified elsewhere, unspecified severity, without behavioral disturbance, psychotic disturbance, mood disturbance, and anxiety; I48.91 Unspecified atrial fibrillation; I10 Essential (primary) hypertension; J44.9 Chronic obstructive pulmonary disease, unspecified; E11.9 Type 2 diabetes mellitus without complications
CPT/HCPCS: 93005; 99291; 51702; 96375; 96365; 36415; 87040; 87086; 82962; 85025; 85610; 87077; 80053; 81001; 84484; 82803; 83605; 74022; 74177; 93010; J2270; J7120; J2543; 87186